=== PATIENT | male | born 1955 | race Caucasian/White ===

== ENCOUNTER → 2016-05-15 | Day surgery (SDC) | payer OTHER ==
[2016-05-14 08:37] VITALS: BMI 21.0
[~2016-05-15] VITALS: Ht 142.2 cm; Wt 42.7 kg
[~2016-05-15] MED LIST: ABL/5 PO; ACET650T97 PO; ALUMSUS2 PO; ASPCH81X PO; ATV/1 PO; BENZ-88 PO; BENZ2TAB6 PO; DOCU100C31 PO; ENTE0.5T PO; IMD/2 PO; LAMO200T PO; LCTL45 PO; LEVO750T23 PO; LEVO75TA PO; LEVO75TA5 PO; LIDOCAINE HCL 2% 2 ML VIAL (20MG/ML) ONE; LORA0.5T12 PO; LPR25 PO; MAGNSUS5 PO; METO25TA56 PO; MOML PO; MULTTAB58 PO; NUTR-7 PO; PANT1TAB3 PO; POLY335019 PO; POLY335040 PO; PROPOFOL IV EMULSION 10 MG/ML 20 ML VIAL IV ONE; PSEU30TA20 PO; SENN-51 PO; SENN-91 PO; TRAZ-119 PO; TRIH2TAB2 PO; [UNRECOGNIZED DRUG - CODE] MT
[2016-05-15 08:39] VITALS: Ht 142.2 cm; Wt 42.7 kg
[2016-05-15 08:45] VITALS: TEMP 36
--- NOTE | 2016-05-15 09:28 | Endo History and Physical ---
History & Physical Date of Service: May 15, 2016. Chief Complaint: chronic cough after eating, reflux Referring Physician: Dr. Nicole History of Present Illness cough after eating Past Surgical History Hx Cardiac Surgery: No Hx Internal Defibrillator: No Hx Pacemaker: No Hx Abdominal Surgery: Yes (?SX (2 NOTEABLE SCARS ON LOWER ABDOMEN)) Hx of Implantable Prosthesis: No Hx Cancer Surgery: No Hx Thoracic Surgery: No Hx Orthopedic: No Hx Urinary Tract Surgery: No Family History None Social History Smoking Status: Never Smoker Hx Substance Use: No Hx Alcohol Use: No Allergies Coded Allergies: Ethanol (Verified Allergy, Mild, 05/14/16) Haloperidol (Verified Allergy, Mild, 05/14/16) Loxapine (Verified Allergy, Mild, 05/14/16) Thioridazine (Verified Allergy, Mild, 05/14/16) Clonazepam (Unverified Allergy, Unknown, UNKNOWN, 05/14/16) Sulfamethoxazole w/Trimethoprim (Unverified Allergy, Unknown, UNKNOWN, 05/14) Zonisamide (Unverified Allergy, Unknown, UNKNOWN, 05/14/16) Diazepam (Verified Adverse Reaction, Mild, 05/14/16) Imipramine (Verified Adverse Reaction, Mild, 05/14/16) Risperidone (Verified Adverse Reaction, Mild, 05/14/16) Current Medications Reported Home Medications Medications Dose Route/Sig Max Daily Dose Days Date Category Dose Instructions Benztropine Mesylate 2 Mg Tab 1 Tab PO TID 30 05/15/16 Reported Sudafed (Pseudoephedrine HCl) 30 Mg Tab 30 Mg PO Q4 PRN 10/05/15 Reported Milk Of Magnesia (Magnesium Hydroxide) 30 Ml Susp 30 Ml PO EVERY 3RD DAY PRN 10/05/15 Reported Imodium (Loperamide HCl) 2 Mg Cap 4 Mg PO ONSET OF LOOSE STOOL 10/05/15 Reported Maalox Max Susp (Al Hydrox/Mg Hydrox/Simethicone) Susp 30 Ml PO QID PRN 10/05/15 Reported Protonix (Pantoprazole) 40 Mg Tab 40 Mg PO BID 11/26/14 Reported Artane (Trihexyphenidyl Hcl) 2 Mg Tab 2 Mg PO BID 03/09/14 Reported Multivitamin (Multiple Vitamin) 1 Tab Tab 1 Tablet PO DAILY 09/16/12 Reported Desyrel (Trazodone Hcl) 50 Mg Tab 50 Mg PO HS 09/16/12 Reported Lorazepam 0.5 Mg Tab 0.5 Mg PO BID 09/16/12 Reported TAKE THIS MEDICATION AT 1200 AND 1600 HOURS. Lamictal (Lamotrigine) 200 Mg Tab 200 Mg PO BID 09/16/12 Reported Qc Senna (Sennosides) 8.6 Mg Tab 8.6 Mg PO BID 09/16/12 Reported Aspirin Chewable (Aspirin) 81 Mg Chew 81 Mg PO DAILY 09/16/12 Reported Miralax Powder Packet (Polyethylene) 17 Gm Pack 17 Gm PO DAILY PRN 11/15/11 Reported DISSOLVE ONE HEAPING TABLESPOONFUL IN 8 OUNCES OF WATER OR JUICE ONCE DAILY NEEDED FOR SEVERE CONSTIPATION. Vital Signs Weight (Kilograms): 42.73 Height (Feet): 4 Height (Inches): 8 Date Time Temp Pulse Resp B/P Pulse Ox O2 Delivery O2 Flow Rate FiO2 05/15/16 08:45 36 90 20 153/89 99 Room Air Physical Exam General Appearance: no apparent distress Respiratory/Chest: Auscultation: breath sounds normal Cardiovascular: Heart Auscultation: RRR Abdomen: Inspection & Palpation: soft Assessment and Plan Cough after eating - EGD
--- NOTE | 2016-05-15 10:08 | Discharge Instructions ---
Endoscopy Patient Instructions Date / Procedure(s) Performed May 15, 2016. EGD Allergy Information Coded Allergies: Ethanol (Verified Allergy, Mild, 05/14/16) Haloperidol (Verified Allergy, Mild, 05/14/16) Loxapine (Verified Allergy, Mild, 05/14/16) Thioridazine (Verified Allergy, Mild, 05/14/16) Clonazepam (Unverified Allergy, Unknown, UNKNOWN, 05/14/16) Sulfamethoxazole w/Trimethoprim (Unverified Allergy, Unknown, UNKNOWN, 05/14) Zonisamide (Unverified Allergy, Unknown, UNKNOWN, 05/14/16) Diazepam (Verified Adverse Reaction, Mild, 05/14/16) Imipramine (Verified Adverse Reaction, Mild, 05/14/16) Risperidone (Verified Adverse Reaction, Mild, 05/14/16) Discharge Date / Findings May 15, 2016. Normal exam Provider Instructions Activity Restrictions - No exercising or heavy lifting for 24 hours. - Do not drink alcohol the day of the procedure. - Do not drive a car or operate machinery until the day after the procedure. - Do not make any important decisions or sign important papers in 24 hours after the procedure. Following Day: - Return to full activity which may include returning to work/school. Diet Start your diet with liquids and light foods (jello, soup, juice, toast). Then eat your usual diet if not nauseated. Treatment For Common After Affects For mild abdominal pain, bloating, or excessive gas: - Rest - Eat lightly - Lie on right side Follow-Up Information Follow-up with Dr. Nicole as scheduled Anesthesia Information What You Should Know You have had a procedure that required some medicine to reduce anxiety and discomfort. This treatment is called moderate sedation. After receiving the treatment, you may be sleepy, but you will be able to breathe on your own. The effects of the treatment may last for several hours. Follow these instructions along with Activity/Diet recommendations noted above: * Do NOT do anything where dizziness or clumsiness would be dangerous. * Rest quietly at home today, then you can be up and about tomorrow. * Have a responsible person stay with you the rest of today. * You may have had an I.V. today. If so, you may take the dressing off later today. Recommendations Call your doctor if: * Trouble breathing * Continuous vomiting for more than 24 hours * Temperature above 101 degrees * Severe abdominal pain or bloating * Pain not relieved by pain medicine ordered * There is increased drainage or redness from any incision * A large amount of rectal bleeding greater than 2-3 tablespoons. (If you had a polyp/s removed or have hemorrhoids, a small amount of blood - from the rectum is to be expected.) * You have any unanswered questions or concerns. IN THE EVENT OF A SERIOUS EMERGENCY, GO TO THE NEAREST EMERGENCY ROOM Your discharge instructions were prepared by provider Melania Bazan. Patient Instructions Signature Page Sadi Moon Patient (or Guardian) Signature/Date: I have read and understand the instructions given to me by my caregivers. Caregiver/RN/Doctor Signature/Date: The above-named patient and/or guardian has received patient instructions on this date. + Original Patient Signature Page (only) stays with chart. Please make copy for patient.
--- NOTE | 2016-05-15 10:08 | GI REPORT ---
Procedure Date: 05/15/2016 9:17 AM Procedure: Upper GI endoscopy Indications: Heartburn, Follow-up of esophageal reflux Medicines: See the Anesthesia note for documentation of the administered medications Complications: No immediate complications. Estimated Blood Loss: Estimated blood loss: none. Procedure: Pre-Anesthesia Assessment: - ASA Grade Assessment: II - A patient with mild systemic disease. After obtaining informed consent, the endoscope was passed under direct vision. Throughout the procedure, the patient's blood pressure, pulse, and oxygen saturations were monitored continuously. The scope was introduced through the mouth, and advanced to the second part of duodenum. The upper GI endoscopy was accomplished without difficulty. The patient tolerated the procedure well. Findings: The examined esophagus was normal. The stomach was normal. The examined duodenum was normal. Impression: - Normal esophagus. - Normal stomach. - Normal examined duodenum. - No specimens collected. Recommendation: - Discharge patient to home. Pérez Moore MD 05/15/2016 10:06:45 AM This report has been signed electronically. Note Initiated On: 05/15/2016 9:17 AM
[2016-05-15 10:25] VITALS: BP 127/72; PULSE 90; O2SAT 96
--- NOTE | 2016-05-15 10:40 | Anesthesiology Progress Note ---
Anesthesia Post Op Note Date & Time May 15, 2016 at 10:39 Vital Signs Pain Intensity: 0 Vital Signs Past 12 Hours Date Time Temp Pulse Resp B/P Pulse Ox O2 Delivery O2 Flow Rate FiO2 05/15/16 10:25 90 20 127/72 96 Room Air 05/15/16 10:11 85 20 119/67 95 Room Air 05/15/16 09:56 74 20 120/61 99 Room Air 05/15/16 08:45 36 90 20 153/89 99 Room Air Notes Mental Status: alert / awake / arousable Nausea / Vomiting: adequately controlled Pain: adequately controlled Airway Patency, RR, SpO2: stable & adequate BP & HR: stable & adequate Hydration State: stable & adequate Anesthetic Complications: no major complications apparent
== END | disposition home or self-care (01) ==
LOC: C.GI 08:18
PROVIDERS: ATTEND Internal Medicine Gastroenterology
DX: K21.9 Gastro-esophageal reflux disease without esophagitis (principal); R05 Cough; Z88.2 Allergy status to sulfonamides; Z88.8 Allergy status to other drugs, medicaments and biological substances

== ENCOUNTER 2016-08-19 15:00 | Inpatient (IN) | payer OTHER ==
[~2016-08-19] VITALS: Ht 144.8 cm; Wt 43.2 kg
[~2016-08-19 15:00] MED LIST changes: -ABL/5 PO; -ACET650T97 PO; -ATV/1 PO; -BENZ-88 PO; -DOCU100C31 PO; -ENTE0.5T PO; -LCTL45 PO; -LEVO750T23 PO; -LEVO75TA PO; -LEVO75TA5 PO; -LIDOCAINE HCL 2% 2 ML VIAL (20MG/ML) ONE; -LPR25 PO; -METO25TA56 PO; -MOML PO; -NUTR-7 PO; -PANT1TAB3 PO; +PANT1TAB48 PO; -POLY335019 PO; -PROPOFOL IV EMULSION 10 MG/ML 20 ML VIAL IV ONE; -SENN-91 PO; -[UNRECOGNIZED DRUG - CODE] MT
[2016-08-19] MEDS ORDERED: ABL/5 PO (15:29)
[2016-08-19] MEDS ORDERED: LEVO75TA5 PO (15:29)
[2016-08-19] MEDS ORDERED: [UNRECOGNIZED DRUG - CODE] MT (15:29)
[2016-08-19] MEDS ORDERED: POLY335019 PO (15:29)
[2016-08-19] MEDS ORDERED: ENTE0.5T PO (15:29)
[2016-08-19] MEDS ORDERED: ACET650T97 PO (15:29)
[2016-08-19] MEDS ORDERED: NUTR-7 PO (15:29)
[2016-08-19] MEDS ORDERED: ATV/1 PO (15:29)
[2016-08-19] MEDS ORDERED: MOML PO (15:29)
[2016-08-19] MEDS ORDERED: DOCU100C31 PO (15:29)
[2016-08-19] MEDS ORDERED: SODIUM CHLORIDE 0.9% 500ML 500 ML IV STA ×2 (15:32→17:26)
[2016-08-19] MEDS ORDERED: SODIUM CHLORIDE 0.9% 1000ML 1,000 ML IV STA (15:32)
[2016-08-19] MEDS ORDERED: ACETAMINOPHEN IV 650 MG in EMPTY BAG 0 ML IV ONE (15:45)
--- NOTE | 2016-08-19 16:22 | DIAGNOSTIC IMAGING REPORT ---
CHEST ONE VIEW PORTABLE HISTORY: fever COMPARISON: Chest 10/05/2015. FINDINGS: The lungs are clear. Cardiac silhouette is normal in size. No pleural effusions. No pneumothorax. IMPRESSION: No acute process. Electronically signed by: Jaya Hines M.D. 08/19/2016 4:20 PM Dictated Date/Time: 08/19/2016 4:19 PM
[2016-08-19 16:33] LABS: BASO % 0.2 %; BASO ABS # 0.02 K/uL (0-0.2); COMPLETE YES; EOS % 1.2 %; HEMATOCRIT 39.7 % (42-52); IG% 0.4 %; LYMPH % 1.7 %; LYMPH ABS # 0.22 K/uL (1.2-3.4); MEAN CORPUSCULAR HEMOGLOBIN 30.4 pg (25-34); MEAN CORPUSCULAR HGB CONC 33.8 g/dl (32-36); MEAN PLATELET VOLUME 9.5 fL (7.4-10.4); MONO % 4.8 %; NEUT % 91.7 %; PLATELET COUNT 164 K/uL (130-400); PLT ESTIMATE NORMAL; RED BLOOD COUNT 4.41 M/uL (4.7-6.1)
[2016-08-19] MEDS ORDERED: PIPERACILLIN/TAZOBACTAM 4.5 GM/100ML D5W IV STA (16:41)
[2016-08-19] MEDS ORDERED: DAPTOmycin IV 250 MG in SODIUM CHLORIDE 0.9% 50ML 50 ML IV ONE (16:45)
[2016-08-19 16:48] LABS: URINE APPEARANCE TURBID (CLEAR); URINE BILIRUBIN NEG (NEG); URINE COLOR DK YELLOW; URINE NITRITE POS (NEG); URINE PH >= 9.0 (4.5-7.5); URINE SPECIFIC GRAVITY 1.025 (1.000-1.030); UROBILINOGEN NEG (NEG); ZZURINE CULT IF INDIC CATH YES
[2016-08-19 16:49] LABS: MANUAL MICROSCOPIC REQUIRED? NO; REVIEW REQ? YES
[2016-08-19 16:56] LABS: SULFASALICYLIC ACID POS (NEG)
[2016-08-19 16:59] LABS: URINE MUCUS PRESENT (NONE PRSENT)
[2016-08-19 17:01] LABS: ALB/GLOB RATIO 0.8 (0.9-2); ALKALINE PHOSPHATASE 84 U/L (45-117); ALT/SGPT 36 U/L (12-78); AST/SGOT 22 U/L (15-37); BLOOD UREA NITROGEN 23 mg/dl (7-18); BUN/CREATININE RATIO 17.4 (10-20); CALCIUM 8.2 mg/dl (8.5-10.1); CARBON DIOXIDE 25 mmol/L (21-32); CHLORIDE 104 mmol/L (98-107); GLUCOSE 148 mg/dl (70-99); MAGNESIUM 2.4 mg/dl (1.8-2.4); POTASSIUM 4.2 mmol/L (3.5-5.1); SODIUM 138 mmol/L (136-145)
--- NOTE | 2016-08-19 17:07 | DIAGNOSTIC IMAGING REPORT ---
HEAD CT NONCONTRAST CT DOSE: 687.98 mGy.cm HISTORY: difficulty w/ ambulation TECHNIQUE: Multiaxial CT images of the head were performed without the use of intravenous contrast. Automated exposure control was utilized for this study. Comparison: Head CT 03/09/2014. Findings: The paranasal sinuses and mastoid air cells are clear. The calvarium and skull base are intact. There is no mass, hematoma, midline shift, acute infarct. White matter hypodensity is nonspecific but suggestive of microvascular ischemic change. The ventricles and sulci demonstrate mild age-related involutional changes. Impression: No significant change compared to the prior study. No acute intracranial abnormality. Electronically signed by: Jaya Hines M.D. 08/19/2016 5:05 PM Dictated Date/Time: 08/19/2016 5:01 PM
--- NOTE | 2016-08-19 18:31 | EMERGENCY ROOM VISIT NOTE ---
History First contact with patient: 15:21 Chief Complaint: OTHER COMPLAINT Stated Complaint: ALTERED MENTAL STATUS History of Present Illness The patient is a 60 year old male who presents to the Emergency Department by private vehicle with his auto body customizer for evaluation of his altered mental status and fever. Yesterday morning, the patient needed to be fed which is abnormal. They report that he was acting somewhat "slow". He was fine for the remainder the day. Today, he had to be fed breakfast and lunch. He has been sleeping os the day. He has not been doing well ambulating recently. At 1:30 PM when the new staff member came on, she noted that he felt warm. He was brought to the emergency Department for further evaluation and management. The patient has had a history of altered mental status with able to her dysfunction. He is also a history of urinary tract infections. The patient has a history of MR and does not indicate other than yes or no answers. When asked if he has pain, he reports no. He is asked if he was hungry or thirsty, he reports yes. He denies any discomfort otherwise. Staff reports that the patient does soil himself and his urine has been very foul-smelling. Review of Systems Review of systems limited secondary to the patient's mental state. Past Medical/Surgical History Medical Problems: (1) Dysphagia (2) Hepatitis (3) Hypothyroidism (4) Mental retardation (5) Pneumonia Family History Patient reports no known family medical history. Social History Smoking Status: Never Smoker Alcohol Use: none Drug Use: none Marital Status: single Housing Status: assisted living Occupation Status: disabled Current/Historical Medications Scheduled Aripiprazole (Abilify), 5 MG PO DAILY Aspirin (Aspirin Chewable), 81 MG PO DAILY Benztropine Mesylate (Benztropine Mesylate), 1 TAB PO TID Docusate Sodium (Docusate Sodium), 100 MG PO BID Entecavir (Baraclude), 0.5 MG PO DAILY Lamotrigine (Lamictal), 200 MG PO BID Loperamide Hcl (Imodium), 4 MG PO ONSET OF LOOSE STOOL Lorazepam (Ativan), 1 MG PO BID Multiple Vitamin (Multivitamin), 1 TABLET PO DAILY Nutritional Supplements (Boost), 1 CAN PO DAILY Pantoprazole (Protonix), 40 MG PO BID Polyethylene Glycol 3350 (Miralax), 17 GM PO DAILY Sodium Fluoride (Dental) (Prevident Rinse), 1 DOSE MT UD Trazodone Hcl (Desyrel), 50 MG PO HS Scheduled PRN Acetaminophen (Tylenol 8 Hour Arthritis), 650 MG PO Q6H PRN for Fever or Headache Aluminum/Magnesium/Simeth (Maalox Max Susp), 30 ML PO QID PRN for PRN Magnesium Hydroxide (Milk Of Magnesia), 30 ML PO QID PRN for UPSET STOMACH Pseudoephedrine (Sudafed), 30 MG PO Q4 PRN for CONGESTION Allergies Coded Allergies: Ethanol (Verified Allergy, Mild, 05/14/16) Haloperidol (Verified Allergy, Mild, 05/14/16) Loxapine (Verified Allergy, Mild, 05/14/16) Thioridazine (Verified Allergy, Mild, 05/14/16) Clonazepam (Unverified Allergy, Unknown, UNKNOWN, 05/14/16) Sulfamethoxazole w/Trimethoprim (Unverified Allergy, Unknown, UNKNOWN, 05/14) Zonisamide (Unverified Allergy, Unknown, UNKNOWN, 05/14/16) Diazepam (Verified Adverse Reaction, Mild, 05/14/16) Imipramine (Verified Adverse Reaction, Mild, 05/14/16) Risperidone (Verified Adverse Reaction, Mild, 05/14/16) Physical Exam Vital Signs Date Time Temp Pulse Resp B/P Pulse Ox O2 Delivery O2 Flow Rate FiO2 08/19/16 18:10 84 18 96/61 96 Nasal Cannula 3.0 08/19/16 16:59 88 18 101/54 96 Nasal Cannula 4.0 08/19/16 16:20 88 Room Air 08/19/16 15:18 78 08/19/16 15:10 38.3 87 18 110/57 96 Room Air Pain Rating (0-10): 0 Physical Exam VITAL SIGNS - Vital signs and nursing notes were reviewed. GENERAL - 60-year-old male appearing older than his stated age who is in no acute distress. Nonverbal but answers simple "yes" or "no" questions. SKIN - Without rashes. HEAD - NC/AT. EYES - PERRL with EOMI bilaterally. Sclera anicteric. Palpebral conjunctiva pink and moist with no injection noted. EARS - No deformities of external structures noted on gross examination bilaterally. No pain elicited with palpation of the tragus bilaterally. External auditory canals without discharge or otorrhea. Tympanic membranes pearly tyson without retraction or bulging. No fluid or purulent material visualized behind the TM. Handle of malleus, umbo, cone of light, pars tensa/ flaccid all easily visualized. NOSE - Midline and without cyanosis. No epistaxis or purulent drainage noted. Septum midline without deviation or septal hematoma noted. MOUTH/OROPHARYNX - Without perioral cyanosis. Buccal mucosa pink and moist and without leukoplakia. Tongue midline with equal elevation of palate bilaterally. No tonsillar hypertrophy, erythema, or exudates noted. NECK - Neck with FROM. Supple to palpation. No lymphadenopathy noted. No nuchal rigidity. LUNGS - Chest wall symmetric without accessory muscle use, intercostals retractions, or central cyanosis. Normal vesicular breath sounds CTA B/L. No wheezes, rales, or rhonchi appreciated. CARDIAC - RRR with S1/S2. No murmur, rubs, or gallops appreciated. ABDOMEN - Abdominal contour flat without pulsations or visible masses. BS normoactive all four quadrants. No tenderness, palpable masses, hepatosplenomegaly, or ascites noted. EXTREMITIES - No clubbing or peripheral cyanosis. No pretibial edema present. NEUROLOGIC - Cranial nerves II through XII grossly intact. Medical Decision & Procedures ER Provider Diagnostic Interpretation: Radiological imaging and reports were reviewed by myself. Radiologist's Interpretation as follows: CHEST ONE VIEW PORTABLE HISTORY: fever COMPARISON: Chest 10/05/2015. FINDINGS: The lungs are clear. Cardiac silhouette is normal in size. No pleural effusions. No pneumothorax. IMPRESSION: No acute process. HEAD CT NONCONTRAST CT DOSE: 687.98 mGy.cm HISTORY: difficulty w/ ambulation TECHNIQUE: Multiaxial CT images of the head were performed without the use of intravenous contrast. Automated exposure control was utilized for this study. Comparison: Head CT 03/09/2014. Findings: The paranasal sinuses and mastoid air cells are clear. The calvarium and skull base are intact. There is no mass, hematoma, midline shift, acute infarct. White matter hypodensity is nonspecific but suggestive of microvascular ischemic change. The ventricles and sulci demonstrate mild age-related involutional changes. Impression: No significant change compared to the prior study. No acute intracranial abnormality. Laboratory Results 08/19/16 15:50 Red Blood Count 4.41, Mean Corpuscular Volume 90.0, Mean Corpuscular Hemoglobin 30.4, Mean Corpuscular Hemoglobin Concent 33.8, Mean Platelet Volume 9.5, Neutrophils (%) (Auto) 91.7, Lymphocytes (%) (Auto) 1.7, Monocytes (%) (Auto) 4.8, Eosinophils (%) (Auto) 1.2, Basophils (%) (Auto) 0.2, Neutrophils # (Auto) 11.55, Lymphocytes # (Auto) 0.22, Monocytes # (Auto) 0.61, Eosinophils # (Auto) 0.15, Basophils # (Auto) 0.02 08/19/16 15:50 Test 08/19/16 15:50 08/19/16 15:56 08/19/16 16:02 08/19/16 16:21 White Blood Count 12.60 K/uL (4.8-10.8) Red Blood Count 4.41 M/uL (4.7-6.1) Hemoglobin 13.4 g/dL (14.0-18.0) Hematocrit 39.7 % (42-52) Mean Corpuscular Volume 90.0 fL (80-100) Mean Corpuscular Hemoglobin 30.4 pg (25-34) Mean Corpuscular Hemoglobin Concent 33.8 g/dl (32-36) Platelet Count 164 K/uL (130-400) Mean Platelet Volume 9.5 fL (7.4-10.4) Neutrophils (%) (Auto) 91.7 % Lymphocytes (%) (Auto) 1.7 % Monocytes (%) (Auto) 4.8 % Eosinophils (%) (Auto) 1.2 % Basophils (%) (Auto) 0.2 % Neutrophils # (Auto) 11.55 K/uL (1.4-6.5) Lymphocytes # (Auto) 0.22 K/uL (1.2-3.4) Monocytes # (Auto) 0.61 K/uL (0.11-0.59) Eosinophils # (Auto) 0.15 K/uL (0-0.5) Basophils # (Auto) 0.02 K/uL (0-0.2) RDW Standard Deviation 46.8 fL (36.4-46.3) RDW Coefficient of Variation 14.1 % (11.5-14.5) Immature Granulocyte % (Auto) 0.4 % Immature Granulocyte # (Auto) 0.05 K/uL (0.00-0.02) Platelet Estimate NORMAL Red Blood Cell Morphology Unremarkable Anion Gap 9.0 mmol/L (3-11) Estimated GFR () 69.2 Estimated GFR (Non- 59.7 BUN/Creatinine Ratio 17.4 (10-20) Calcium Level 8.2 mg/dl (8.5-10.1) Magnesium Level 2.4 mg/dl (1.8-2.4) Total Bilirubin 0.3 mg/dl (0.2-1) Aspartate Amino Transf (AST/SGOT) 22 U/L (15-37) Alanine Aminotransferase (ALT/SGPT) 36 U/L (12-78) Alkaline Phosphatase 84 U/L (45-117) Total Creatine Kinase 46 U/L (39-308) Creatine Kinase MB < 0.5 ng/ml (0.5-3.6) Creatine Kinase MB Ratio (0-3.0) Total Protein 6.4 gm/dl (6.4-8.2) Albumin 2.9 gm/dl (3.4-5.0) Globulin 3.5 gm/dl (2.5-4.0) Albumin/Globulin Ratio 0.8 (0.9-2) Chemistry Specimen Hemolysis Bedside Lactic Acid Venous 3.10 mmol/L (0.90-1.70) Influenza Type A Antigen Neg for Influ A (NEG) Influenza Type B Antigen Neg for Influ B (NEG) Urine Color DK YELLOW Urine Appearance TURBID (CLEAR) Urine pH >= 9.0 (4.5-7.5) Urine Specific [place] 1.025 (1.000-1.030) Urine Protein 1+ (NEG) Urine Glucose (UA) NEG (NEG) Urine Ketones NEG (NEG) Urine Occult Blood 1+ (NEG) Urine Nitrite POS (NEG) Urine Bilirubin NEG (NEG) Urine Urobilinogen NEG (NEG) Urine Leukocyte Esterase LARGE (NEG) Urine WBC (Auto) >30 /hpf (0-5) Urine RBC (Auto) 0-4 /hpf (0-4) Urine Hyaline Casts (Auto) 5-10 /lpf (0-5) Urine Epithelial Cells (Auto) 10-20 /lpf (0-5) Urine Bacteria (Auto) NEG (NEG) Urine Crystals TRIPLE PHOSPHATE Urine Pathogenic Casts /lpf (0) Urine Mucus PRESENT (NONE PRSENT) Test 08/19/16 16:26 Bedside Troponin I 0.020 ng/ml (0-0.045) Medications Administered Medications (Trade) Dose Ordered Sig/Idris Route Start Time Stop Time Status Last Admin Dose Admin Sodium Chloride 500 ml @ 999 mls/hr Q31M STAT IV 08/19/16 15:32 08/19/16 16:02 DC 08/19/16 15:32 999 MLS/HR Sodium Chloride 1,000 ml @ 125 mls/hr Q8H STAT IV 08/19/16 15:32 08/19/16 21:16 DC 08/19/16 16:10 125 MLS/HR Acetaminophen/ Empty Bag (Ofirmev IV/ Empty Iv Bag 100ml) 65 ml @ 260 mls/hr NOW ONCE IV 08/19/16 15:45 08/19/16 15:59 DC 08/19/16 16:10 260 MLS/HR Piperacillin Sod/ Tazobactam Sod 4.5 gm 4.5 gm NOW STAT IV 08/19/16 16:41 08/19/16 16:43 DC 08/19/16 17:02 4.5 GM Daptomycin 250 mg/ Sodium Chloride 55 ml @ 100 mls/hr NOW ONCE IV 08/19/16 16:45 08/19/16 17:17 DC 08/19/16 17:42 100 MLS/HR Sodium Chloride (Nss 500ml) 500 ml @ 999 mls/hr Q31M STAT IV 08/19/16 17:26 08/19/16 17:56 DC 08/19/16 17:26 999 MLS/HR Procedure Patient was placed on the earring maker and monitored throughout the entire extent of their stay. In addition, the patient's pulse oximetry was monitored throughout the entire stay. Any abnormalities or aberrancies were addressed appropriately. ECG Indication: altered mental status Rate (beats per minute): 85 Rhythm: normal sinus Findings: no acute ischemic change, no ectopy Change: no significant change (from 12/27/2014.) ED Course Patient was seen and evaluated by myself. Previous emergency department visit notes were reviewed. Labs were drawn, saline lock in place. Blood cultures were obtained. Influenza and RSV swabs were obtained. EKG and chest x-ray as well as head CT were obtained. Patient was hydrated with a 500 mL bolus of normal saline followed by 125 mL per hour. He received IV Tylenol. Chest x- ray is unremarkable. EKG demonstrates no acute findings. Laboratory results demonstrate a mild leukocytosis with left shift. Inrvx-po-[id number] lactic acid was found to be elevated at 3.10. At this point, the patient was treated with IV Zosyn and daptomycin per sepsis protocol. He was hydrated with an additional 500 mL normal saline bolus. Troponin was negative. Urinalysis was concerning for UTI. Influenza was negative. CT chest x-rays were unremarkable. Laboratory results and imaging studies were reviewed with auto body customizer. Case was discussed with the [facility]ist who agrees to admit the patient for further evaluation and management of his urosepsis. Patient admitted in stable condition. Medical Decision Given the patient's presentation and staff's concern, I did elect to perform the above-mentioned workup. The patient presents today with fever and altered mental status. The patient has MR which makes evaluation much more difficult. He has no tenderness to palpation throughout his abdomen. He does have a mild leukocytosis. His geflc-ie-xwgy lactic acid was significantly elevated. He was found to have moderate UTI on Urine. Because of this, the patient was aggressively managed with Zosyn and daptomycin pending blood and urine cultures. The patient will be admitted for further evaluation and management and aggressive hydration and hemodynamic monitoring. Patient was admitted to medicine service for further evaluation and management. The patient was admitted in fair condition. In the evaluation and treatment of this patient, the following differential diagnoses were considered: Bladder Cancer, Chlamydial Genitourinary Infection, Cystitis, Herpes Simplex, Interstitial Cystitis, PID, Pyelonephritis, Urethritis , or Vaginitis. Impression Primary Impression: Sepsis due to urinary tract infection Additional Impressions: Altered mental status Fever Critical Care I have personally spent greater than 35 minutes of critical care time in the direct management of this patient. This includes bedside care, interpretation of diagnostic studies, and testing, discussion with consultants, patient, and family members, and other required patient management activities. This 35 minutes is in excess of all separately billable procedures. Departure Information Dispostion Admitted as an inpatient Condition FAIR Referrals Diana Nicole M.D. (PCP) Patient Instructions [facility] Health Problem Qualifiers Additional Impressions: Altered mental status Altered mental status type: unspecified Qualified Codes: R41.82 - Altered mental status, unspecified Fever Fever type: unspecified Qualified Codes: R50.9 - Fever, unspecified
[2016-08-19] MEDS ORDERED: NSS + 20MEQ KCL 1000ML 1,000 ML IV SCH (18:57)
[2016-08-19] MEDS ORDERED: ONDANSETRON INJ 2 MG/ML 2 ML VIAL IV PRN (19:00)
[2016-08-19] MEDS ORDERED: LOPERAMIDE HCL 2 MG CAP PO PRN (19:15)
[2016-08-19] MEDS ORDERED: ACETAMINOPHEN 325 MG TAB PO PRN (19:15)
[2016-08-19] MEDS ORDERED: PSEUDOEPHEDRINE HCL 30 MG TAB PO PRN (19:15)
[2016-08-19] MEDS ORDERED: ALUMINUM/MAGNESIUM/SIMETH (MAALOX MAX) 30 ML UDC PO PRN (19:15)
[2016-08-19] MEDS ORDERED: MAGNESIUM HYDROXIDE SUSP 30 ML UDC PO PRN (19:15)
[2016-08-19 19:50] VITALS: Ht 144.8 cm; Wt 43.2 kg
[2016-08-19 20:20] VITALS: BP 113/63; PULSE 97; TEMP 37.2; O2SAT 96
[2016-08-19] MEDS ORDERED: VANCOMYCIN INJ 1,000 MG in SODIUM CHLORIDE 0.9% 250ML 250 ML IV SCH (21:00)
--- NOTE | 2016-08-19 21:01 | HISTORY & PHYSICAL EXAMINATION ---
DATE OF ADMISSION: 08/19/2016 PRIMARY CARE PROVIDER: Dr. Nicole CHIEF COMPLAINT: Noted to be warm and change in mental status since this morning. HISTORY OF PRESENT COMPLAINT: He is a 60-year-old male with significant medical history of mental retardation, hepatitis B carrier, hypothyroidism, seizure disorder and history of dysphagia. Apparently, lives in a correction and is taken care of by a caregiver. The caregiver noted that he has not been eating or drinking normally since yesterday. He has had more shaking of the limbs and he was needed to be fed, which is unusual. This morning, the shaking and confusion was worse and she noted that the patient felt very warm. From that point, he was brought to the Emergency Room for further evaluation. No history of nausea, vomiting, abdominal distention or any pain. No history of any problem with urine and/or bowel, though he is incontinent. No rash, no ulcers in the extremities and no swelling of the legs. He does not have any weakness involving any side in particular. In the Emergency Room, he was noted to have a temperature of 38.3. His blood pressure went down to 96/61, his pulse about 84, saturation 96 on three liters, his white count was noted to be high at 13,000 with a lactate elevated to more than 3 and Urinary tract infection. From that point, he was admitted to telemetry unit with a possible diagnosis of sepsis secondary to urinary tract infection. PAST MEDICAL HISTORY: Significant for mental retardation, hepatitis B carrier, hypothyroidism, history of seizure disorder and dysphagia. PAST SURGICAL HISTORY: Nothing significant. He has had an EGD in May 2016. FAMILY HISTORY: Nothing obtainable at this time. SOCIAL HISTORY: He lives in a correction. He is mentally challenged. He does not smoke or does not drink. He usually can take care of himself to some extent. He can come out of bed, but he needs assistance in clothing and also cleaning himself as he is incontinent of urine and bowel. REVIEW OF SYSTEMS: As in history of present complaint. ALLERGIES: HE IS ALLERGIC TO ATENOLOL, HALOPERIDOL, LOXAPINE, THIORIDAZINE, CLONAZEPAM, BACTRIM, ZONEGRAN, DIAZEPAM, IMIPRAMINE AND RISPERIDONE. MEDICATIONS: As an outpatient; he has been on Tylenol as directed, Maalox as directed, Abilify 5 mg daily, aspirin 81 mg daily, benztropine 2 mg tablet one p.o. t.i.d., docusate sodium 100 mg b.i.d., Baraclude 0.5 mg daily, Lamictal 200 mg b.i.d., Imodium 2 mg tablet 4 mg as directed, lorazepam 1 mg b.i.d., magnesium hydroxide 30 mL as directed, multivitamin 1 tablet daily, Boost as directed, Protonix 40 mg daily, polyethylene glycol as directed, pseudoephedrine 30 mg as directed and trazodone 50 mg at night. PHYSICAL EXAMINATION: GENERAL: On examination in the Emergency Room, he was not having any acute distress. He is nonverbal. He was having shakiness involving the upper extremities which is usual for him. VITAL SIGNS: Temperature 38.3, pulse was 84, blood pressure 96/61 and saturation 96% on three liters nasal cannula. HEENT: Unremarkable. NECK: Supple. No JVD, no bruits. CHEST: Clear to auscultation bilaterally. HEART: S1, S2 regular. No murmur appreciated. ABDOMEN: Soft, benign, slightly distended, nontender, no organomegaly. RECTAL: Deferred. EXTREMITIES: Negative for any edema. MUSCULOSKELETAL: Did not show any acute arthritis involving any joint. CENTRAL NERVOUS SYSTEM: Alert, awake. He is mentally retarded and nonverbal. LABORATORY DATA: Noted today; white count was 12.60, H\T\H 13.4/39.7 and platelets were 164. Sodium 138, potassium 4.2, chloride 104, carbon dioxide 25, BUN 23, creatinine 1.30 and random glucose 148. Lactic acid was 3.10, calcium 8.2. LFTs unremarkable. CK, CK-MB and troponin unremarkable too. UA examination showed WBC more than 30, nitrite positive, esterase positive, bacteria present is sent for culture. Influenza A and B negative. Chest x-ray; no acute findings. CT of the head is negative for any acute intracranial events. EKG was in sinus rhythm, rate of 85 per minute with poor baseline, but nonspecific ST-T wave changes. IMPRESSION AND PLAN: 1. Sepsis, most likely secondary to urinary tract infection. He made the criteria of sepsis on admission with high white count, low blood pressure, fever and also lactic acid level was 3.0. He received IV fluids and we are going to check his lactic acid in about 6 hours. He will be admitted to the telemetry unit. Blood culture and urine culture were taken. He was started with vancomycin and Zosyn, which will be continued for the time being. 2. Mental retardation. He has been in a correction. He does not have any acute symptoms from that. He sees his psychiatric every two months. 3. Seizure disorder. He has not had any seizure for many many years. He has been on Lamictal, continue with that. 4. Hypothyroidism, continue replacement. 5. Dysphagia, he will need pureed diet and medications should be given with applesauce and/or yogurt. He also takes Boost. 6. Gastrointestinal prophylaxis with Protonix. 7. Deep venous thrombosis prophylaxis with Lovenox. 8. Code status. He will be a full code. In my clinical assessment, the beneficiary meets criteria as per CMS for 2 midnights' admission. HILARY
[2016-08-19] MEDS: SODIUM CHLORIDE 0.9% 1000ML 1,000 ML IV SCH (21:24)
[2016-08-19] MEDS: PIPERACILL/TAZOBAC IV 3.375 GM in DEXTROSE 5% 100ML 100 ML IV SCH (21:28)
[2016-08-19] MEDS: LORAZEPAM 1 MG TAB PO SCH (21:28)
[2016-08-19] MEDS: DOCUSATE SODIUM 100 MG CAP PO SCH (21:29)
[2016-08-19] MEDS: PANTOprazole SOD 40 MG TAB PO SCH (21:29)
[2016-08-19] MEDS: TRAZODONE HCL 50 MG TAB PO SCH (21:29)
[2016-08-19] MEDS: BENZTROPINE MESYLATE 1 MG TAB PO SCH (21:29)
[2016-08-19] MEDS ORDERED: PIPERACILL/TAZOBAC CONSULT ACTIVE PRN (21:30)
[2016-08-19 23:38] VITALS: BP 99/54; PULSE 92; TEMP 36.6; O2SAT 93
[2016-08-20] VITALS (11 sets, daily range): BP systolic 98–136; BP diastolic 53–72; PULSE 88–111; TEMP 36.8–38.3; O2SAT 90–96
[2016-08-20] MEDS: SODIUM CHLORIDE 0.9% 1000ML 1,000 ML IV SCH ×3 (04:04→17:28)
[2016-08-20] MEDS: ACETAMINOPHEN 325 MG TAB PO PRN ×2 (04:05→17:25)
[2016-08-20] MEDS: PIPERACILL/TAZOBAC IV 3.375 GM in DEXTROSE 5% 100ML 100 ML IV SCH ×3 (05:37→22:42)
[2016-08-20 07:10] LABS: HEMATOCRIT 36.1 % (42-52); MEAN CORPUSCULAR HEMOGLOBIN 29.8 pg (25-34); MEAN CORPUSCULAR HGB CONC 33.8 g/dl (32-36); MEAN PLATELET VOLUME 9.3 fL (7.4-10.4); PLATELET COUNT 130 K/uL (130-400); WHITE BLOOD COUNT 5.14 K/uL (4.8-10.8)
[2016-08-20 07:20] LABS: INR 1.3 (0.9-1.1); PROTHROMBIN TIME (PATIENT) 14.5 SECONDS (9.0-12.0)
[2016-08-20 07:42] LABS: BUN/CREATININE RATIO 15.7 (10-20); CALCIUM 7.1 mg/dl (8.5-10.1); CREATININE 1.1 mg/dl (0.60-1.40); MAGNESIUM 2.2 mg/dl (1.8-2.4); POTASSIUM 3.9 mmol/L (3.5-5.1)
[2016-08-20 07:51] LABS: PHOSPHORUS 1.6 mg/dl (2.5-4.9)
[2016-08-20] MEDS: [UNRECOGNIZED DRUG - OTHER] SCH ×4 (08:00→23:04)
[2016-08-20] MEDS: POLYETHYLENE (MIRALAX) 17 GM PACK PO SCH (09:00)
[2016-08-20] MEDS ORDERED: ENOXAPARIN 40 MG/0.4 ML SYR SC SCH (09:00)
[2016-08-20] MEDS: DOCUSATE SODIUM 100 MG CAP PO SCH ×2 (09:13→22:38)
[2016-08-20] MEDS: ARIPIprazole TAB 5 MG TAB PO SCH (09:13)
[2016-08-20] MEDS: BENZTROPINE MESYLATE 1 MG TAB PO SCH ×3 (09:14→22:38)
[2016-08-20] MEDS: MULTIVITAMIN TAB PO SCH (09:15)
[2016-08-20] MEDS: BOOST VANILLA PO SCH ×2 (09:15)
[2016-08-20] MEDS: ASPIRIN 81 MG ECTAB PO SCH (09:15)
[2016-08-20] MEDS: PANTOprazole SOD 40 MG TAB PO SCH ×2 (09:15→23:06)
[2016-08-20] MEDS: LORAZEPAM 1 MG TAB PO SCH ×2 (09:17→22:36)
--- NOTE | 2016-08-20 09:52 | Medical Consult ---
Consultation Date of Consultation: Aug 20, 2016. Attending Physician: Pati Bergman M.D. Reason for Consultation: Daptomycin ordered History of Present Illness 60-year-old male with history of mental retardation, chronic hepatitis B infection on therapy, history of prior urinary tract infections, admitted to the hospital with 1 day history of worsening mental status, not eating or drinking, with fever. Found to have leukocytosis and elevated lactate consistent with sepsis. urinalysis consistent with infection, now growing gram- negative bacilli. Chest x-ray shows no evidence of pneumonia. Patient has been started empirically on daptomycin and Zosyn. Not answering questions appropriately at present, hemodynamically stable. Past Medical/Surgical History Medical Problems: (1) Altered mental status Status: Acute (2) Cough Status: Acute (3) Fever Status: Acute (4) Sepsis due to urinary tract infection Status: Acute (5) Vomiting Status: Acute Medical Problems: (1) Dysphagia (2) Hepatitis (3) Hypothyroidism (4) Mental retardation (5) Pneumonia Family History Patient reports no known family medical history. Social History Smoking Status: Never Smoker Drug Use: none Marital Status: single Housing Status: assisted living Occupation Status: disabled Allergies Coded Allergies: Haloperidol (Verified Allergy, Mild, 05/14/16) Loxapine (Verified Allergy, Mild, 05/14/16) Thioridazine (Verified Allergy, Mild, 05/14/16) Clonazepam (Unverified Allergy, Unknown, UNKNOWN, 05/14/16) Sulfamethoxazole w/Trimethoprim (Unverified Allergy, Unknown, UNKNOWN, 05/14) Zonisamide (Unverified Allergy, Unknown, UNKNOWN, 05/14/16) Diazepam (Verified Adverse Reaction, Mild, 05/14/16) Imipramine (Verified Adverse Reaction, Mild, 05/14/16) Risperidone (Verified Adverse Reaction, Mild, 05/14/16) Current Inpatient Medications Current Inpatient Medications Medications (Trade) Dose Ordered Sig/Idris Route Start Time Stop Time Status Last Admin Dose Admin Enoxaparin Sodium (Lovenox Inj) 40 mg QAM SC 08/20/16 09:00 09/19/16 08:59 08/20/16 09:16 40 MG Acetaminophen (Tylenol Tab) 650 mg Q4H PRN PO 08/19/16 19:00 09/18/16 18:59 08/20/16 04:05 650 MG Ondansetron HCl (Zofran Inj) 4 mg Q6H PRN IV 08/19/16 19:00 09/18/16 18:59 Al Hydrox/Mg Hydrox/Simethicone (Maalox Max Susp) 30 ml QID PRN PO 08/19/16 19:15 09/18/16 19:14 Aripiprazole (Abilify Tab) 5 mg DAILY PO 08/20/16 09:00 09/19/16 08:59 08/20/16 09:13 5 MG Aspirin (Ecotrin Tab) 81 mg DAILY PO 08/20/16 09:00 09/19/16 08:59 08/20/16 09:15 81 MG Docusate Sodium (coLACE CAP) 100 mg BID PO 08/19/16 21:00 09/18/16 20:59 08/20/16 09:13 100 MG Loperamide HCl (Imodium Cap) 4 mg Q8H PRN PO 08/19/16 19:15 09/18/16 19:14 Lorazepam (Ativan Tab) 1 mg BID PO 08/19/16 21:00 09/18/16 20:59 08/20/16 09:17 1 MG Magnesium Hydroxide (Milk Of Magnesia Susp) 30 ml QID PRN PO 08/19/16 19:15 09/18/16 19:14 Multivitamins (Multivitamin Tab) 1 tab DAILY PO 08/20/16 09:00 09/19/16 08:59 08/20/16 09:15 1 TAB Enteral Nutritional Formula (Boost) 1 can DAILY PO 08/20/16 09:00 09/19/16 08:59 08/20/16 09:15 1 CAN Pantoprazole Sodium (Protonix Tab) 40 mg BID PO 08/19/16 21:00 09/18/16 20:59 08/20/16 09:15 40 MG Pseudoephedrine HCl (Sudafed Tab) 30 mg Q4 PRN PO 08/19/16 19:15 09/18/16 19:14 Trazodone HCl (Desyrel Tab) 50 mg HS PO 08/19/16 21:00 09/18/16 20:59 08/19/16 21:29 50 MG Acetaminophen (Tylenol Tab) 650 mg Q6H PRN PO 08/19/16 19:15 09/18/16 19:14 Benztropine Mesylate (Cogentin Tab) 1 mg TID PO 08/19/16 21:00 09/18/16 20:59 08/20/16 09:14 1 MG Miscellaneous Information (Order Awaiting Action) 1 ea QS N/A 08/20/16 00:00 09/19/16 00:00 Lamotrigine (Lamictal Tab) 200 mg BID PO 08/19/16 21:00 09/18/16 20:59 08/20/16 09:13 200 MG Polyethylene 17 gm 17 gm DAILY PO 08/20/16 09:00 09/19/16 08:59 Piperacillin Sod/ Tazobactam Sod 3.375 gm/Dextrose 115 ml @ 28 mls/hr Q8H IV 08/19/16 22:00 08/29/16 21:59 08/20/16 05:37 28 MLS/HR Sodium Chloride 1,000 ml @ 150 mls/hr Q6H40M IV 08/19/16 21:30 09/18/16 21:29 08/20/16 04:04 150 MLS/HR Daptomycin/Sodium Chloride (Cubicin IV/Nss 50ml) 55 ml @ 100 mls/hr DAILY@1800 IV 08/20/16 18:00 08/28/16 18:32 Piperacillin Sod/ Tazobactam Sod (Consult) 1 ea UD PRN N/A 08/19/16 21:30 09/18/16 21:29 Review of Systems Not obtainable because of patient's mental status Physical Exam Date Time Temp Pulse Resp B/P Pulse Ox O2 Delivery O2 Flow Rate FiO2 08/20/16 08:06 36.8 97 20 107/63 91 Nasal Cannula 2.0 08/20/16 05:18 37.2 08/20/16 04:00 Nasal Cannula 2.0 08/20/16 03:49 37.9 95 19 98/66 93 Nasal Cannula 2.0 08/20/16 00:00 Nasal Cannula 2.0 08/19/16 23:38 36.6 92 17 99/54 93 Nasal Cannula 2.0 08/19/16 20:20 37.2 97 20 113/63 96 Nasal Cannula 2.0 08/19/16 19:44 79 18 97/69 97 Nasal Cannula 3.0 08/19/16 19:19 81 08/19/16 18:10 84 18 96/61 96 Nasal Cannula 3.0 08/19/16 16:59 88 18 101/54 96 Nasal Cannula 4.0 08/19/16 16:20 88 Room Air 08/19/16 15:18 78 08/19/16 15:10 38.3 87 18 110/57 96 Room Air General Appearance: WD/WN, no apparent distress Head: normocephalic, atraumatic Eyes: normal inspection, sclerae normal ENT: normal ENT inspection, pharynx normal Neck: supple, no adenopathy, thyroid normal, trachea midline Respiratory/Chest: chest non-tender, lungs clear, normal breath sounds, no respiratory distress Cardiovascular: regular rate, rhythm, no gallop, no murmur Abdomen/GI: normal bowel sounds, soft, no organomegaly, + tenderness, + distended Back: normal inspection, no CVA tenderness Extremities/Musculoskelatal: no calf tenderness, non-tender Neurologic/Psych: alert, + disoriented Skin: normal color, warm/dry, no rash Lymphatic: no adenopathy Laboratory Results Date/Time Source Procedure Growth Status 08/19/16 16:05 Blood Blood Culture Pending Received 08/19/16 15:50 Blood Blood Culture Pending Received 08/19/16 16:21 Urine,Catheterized Urine Culture - Preliminary Gram Negative Bacilli Resulted Last 24 Hours Test 08/19/16 15:50 08/19/16 15:56 08/19/16 16:02 08/19/16 16:21 White Blood Count 12.60 K/uL Red Blood Count 4.41 M/uL Hemoglobin 13.4 g/dL Hematocrit 39.7 % Mean Corpuscular Volume 90.0 fL Mean Corpuscular Hemoglobin 30.4 pg Mean Corpuscular Hemoglobin Concent 33.8 g/dl Platelet Count 164 K/uL Mean Platelet Volume 9.5 fL Neutrophils (%) (Auto) 91.7 % Lymphocytes (%) (Auto) 1.7 % Monocytes (%) (Auto) 4.8 % Eosinophils (%) (Auto) 1.2 % Basophils (%) (Auto) 0.2 % Neutrophils # (Auto) 11.55 K/uL Lymphocytes # (Auto) 0.22 K/uL Monocytes # (Auto) 0.61 K/uL Eosinophils # (Auto) 0.15 K/uL Basophils # (Auto) 0.02 K/uL RDW Standard Deviation 46.8 fL RDW Coefficient of Variation 14.1 % Immature Granulocyte % (Auto) 0.4 % Immature Granulocyte # (Auto) 0.05 K/uL Platelet Estimate NORMAL Red Blood Cell Morphology Unremarkable Sodium Level 138 mmol/L Potassium Level 4.2 mmol/L Chloride Level 104 mmol/L Carbon Dioxide Level 25 mmol/L Anion Gap 9.0 mmol/L Blood Urea Nitrogen 23 mg/dl Creatinine 1.30 mg/dl Estimated GFR () 69.2 Estimated GFR (Non- 59.7 BUN/Creatinine Ratio 17.4 Random Glucose 148 mg/dl Calcium Level 8.2 mg/dl Magnesium Level 2.4 mg/dl Total Bilirubin 0.3 mg/dl Aspartate Amino Transf (AST/SGOT) 22 U/L Alanine Aminotransferase (ALT/SGPT) 36 U/L Alkaline Phosphatase 84 U/L Total Creatine Kinase 46 U/L Creatine Kinase MB < 0.5 ng/ml Creatine Kinase MB Ratio Total Protein 6.4 gm/dl Albumin 2.9 gm/dl Globulin 3.5 gm/dl Albumin/Globulin Ratio 0.8 Chemistry Specimen Hemolysis Bedside Lactic Acid Venous 3.10 mmol/L Influenza Type A Antigen Neg for Influ A Influenza Type B Antigen Neg for Influ B Urine Color DK YELLOW Urine Appearance TURBID Urine pH >= 9.0 Urine Specific [place] 1.025 Urine Protein 1+ Urine Glucose (UA) NEG Urine Ketones NEG Urine Occult Blood 1+ Urine Nitrite POS Urine Bilirubin NEG Urine Urobilinogen NEG Urine Leukocyte Esterase LARGE Urine WBC (Auto) >30 /hpf Urine RBC (Auto) 0-4 /hpf Urine Hyaline Casts (Auto) 5-10 /lpf Urine Epithelial Cells (Auto) 10-20 /lpf Urine Bacteria (Auto) NEG Urine Crystals TRIPLE PHOSPHATE Urine Pathogenic Casts /lpf Urine Mucus PRESENT Test 08/19/16 16:26 08/19/16 23:25 08/20/16 06:42 Bedside Troponin I 0.020 ng/ml Lactic Acid Level 1.2 mmol/L White Blood Count 5.14 K/uL Red Blood Count 4.10 M/uL Hemoglobin 12.2 g/dL Hematocrit 36.1 % Mean Corpuscular Volume 88.0 fL Mean Corpuscular Hemoglobin 29.8 pg Mean Corpuscular Hemoglobin Concent 33.8 g/dl RDW Standard Deviation 46.6 fL RDW Coefficient of Variation 14.3 % Platelet Count 130 K/uL Mean Platelet Volume 9.3 fL Prothrombin Time 14.5 SECONDS Prothromb Time International Ratio 1.3 Sodium Level 142 mmol/L Potassium Level 3.9 mmol/L Chloride Level 111 mmol/L Carbon Dioxide Level 24 mmol/L Anion Gap 7.0 mmol/L Blood Urea Nitrogen 17 mg/dl Creatinine 1.10 mg/dl Est Creatinine Clear Calc Drug Dose 44.1 ml/min Estimated GFR () 84.7 Estimated GFR (Non- 73.1 BUN/Creatinine Ratio 15.7 Random Glucose 120 mg/dl Calcium Level 7.1 mg/dl Phosphorus Level 1.6 mg/dl Magnesium Level 2.2 mg/dl Total Bilirubin 0.5 mg/dl Direct Bilirubin 0.2 mg/dl Aspartate Amino Transf (AST/SGOT) 37 U/L Alanine Aminotransferase (ALT/SGPT) 44 U/L Alkaline Phosphatase 87 U/L Total Protein 5.3 gm/dl Albumin 2.2 gm/dl [~ rep ct add3]] CHEST ONE VIEW PORTABLE HISTORY: fever COMPARISON: Chest 10/05/2015. FINDINGS: The lungs are clear. Cardiac silhouette is normal in size. No pleural effusions. No pneumothorax. IMPRESSION: No acute process. Electronically signed by: Jaya Hines M.D. 08/19/2016 4:20 PM Dictated Date/Time: 08/19/2016 4:19 PM Assessment & Plan Sepsis with encephalopathy likely from urinary tract infection with gram negative bacilli. Will continue Zosyn pending final culture results. Daptomycin discontinued. Will follow.
--- NOTE | 2016-08-20 10:44 | Clinical Documentation Query ---
Dr. [facility] : CLINICAL DOCUMENTATION QUERY Patient is a 60 year old male admitted for evaluation and treatment of fever and mental status changes. Was noted to not be eating or drinking in usual amounts and was requiring more assistance with ADL's. Documentation includes "confusion was worse". CT scan of the head completed which demonstrated no acute disease. As appropriate, consider clarification as suggested below as this directly impacts DRG assignment. Thank you. In your clinical opinion is this patient being managed for: ( + ) Metabolic encephalopathy ( ) Other explanation of clinical findings (Please Explain) ( ) Unable to determine (Please Define) ( ) Need to Discuss ( ) Not Agree The medical record reflects the following clinical findings, treatment, and risk factors. Clinical Indicators: Altered mental status in the setting of sepsis due to UTI Treatment: IVF antibiotics, IVF, cultures, labs Risk Factors: Infection. Please clarify and document your clinical opinion in the progress notes and discharge summary. Terms such as "probable", "suspected", "likely", "questionable", "possible", or "still to be ruled out" are acceptable. IF IN AGREEMENT, YOU MUST DOCUMENT ABOVE DIAGNOSTIC STATEMENT IN DAILY PROGRESS NOTES AND DISCHARGE SUMMARY. This document is not part of the patient's record. Thank You, Dionisio Stringer, RN [phone]
--- NOTE | 2016-08-20 16:59 | Progress Note ---
Internal Med Progress Note Date of Service: Aug 20, 2016. Provider Documentation: SUBJECTIVE: The patient was seen and examined NON VERBAL Remains stable and without any distress Generalized shakes on any stimulation OBJECTIVE: Vital Signs-as noted below Exam: General-No distress at rest Eyes-normal ENT-normal Neck-supple Lungs-Decreased breath sound bilaterally without any crackles Heart-Regular Abdomen-Benign,no masses Extremities-No edema Neuro-AA Nonverbal Moving all limbs Lab data as noted below. ASSESSMENT & PLAN: Sepsis with Metabolic Encephalopathy Secondary to urinary tract infection. Gm Negative Bacilli in Urine culture Was on Dapto and Zosyn WCC is normalized Appreciate ID input Mental retardation. He has been in a residential. He does not have any acute symptoms from that. He sees his psychiatric every two months. Seizure disorder. He has not had any seizure for many many years. He has been on Lamictal, continue with that. Hypothyroidism, continue replacement. Dysphagia, he will need pureed diet and medications should be given with applesauce and/or yogurt. He also takes Boost. Gastrointestinal prophylaxis with Protonix. Deep venous thrombosis prophylaxis with Lovenox. Changed to Heparin Code status. He will be a full code. DISPOSITION Likely discharge in a day or two Vital Signs: Date Time Temp Pulse Resp B/P Pulse Ox O2 Delivery O2 Flow Rate FiO2 08/20/16 16:37 38.3 111 22 113/68 96 5.0 08/20/16 14:12 37.3 08/20/16 13:31 37.8 96 114/64 96 Nasal Cannula 3.0 08/20/16 12:11 38.1 96 19 136/53 91 Nasal Cannula 2.0 08/20/16 12:00 95 Nasal Cannula 2.0 08/20/16 08:06 36.8 97 20 107/63 91 Nasal Cannula 2.0 08/20/16 08:00 94 Nasal Cannula 2.0 08/20/16 05:18 37.2 08/20/16 04:00 Nasal Cannula 2.0 08/20/16 03:49 37.9 95 19 98/66 93 Nasal Cannula 2.0 08/20/16 00:00 Nasal Cannula 2.0 08/19/16 23:38 36.6 92 17 99/54 93 Nasal Cannula 2.0 08/19/16 20:20 37.2 97 20 113/63 96 Nasal Cannula 2.0 08/19/16 19:44 79 18 97/69 97 Nasal Cannula 3.0 08/19/16 19:19 81 08/19/16 18:10 84 18 96/61 96 Nasal Cannula 3.0 08/19/16 16:59 88 18 101/54 96 Nasal Cannula 4.0 Lab Results: Results Past 24 Hours Test 08/19/16 23:25 08/20/16 06:42 Range/Units Lactic Acid Level 1.2 0.4-2.0 mmol/L White Blood Count 5.14 4.8-10.8 K/uL Red Blood Count 4.10 4.7-6.1 M/uL Hemoglobin 12.2 14.0-18.0 g/dL Hematocrit 36.1 42-52 % Mean Corpuscular Volume 88.0 80-100 fL Mean Corpuscular Hemoglobin 29.8 25-34 pg Mean Corpuscular Hemoglobin Concent 33.8 32-36 g/dl RDW Standard Deviation 46.6 36.4-46.3 fL RDW Coefficient of Variation 14.3 11.5-14.5 % Platelet Count 130 130-400 K/uL Mean Platelet Volume 9.3 7.4-10.4 fL Prothrombin Time 14.5 9.0-12.0 SECONDS Prothromb Time International Ratio 1.3 0.9-1.1 Sodium Level 142 136-145 mmol/L Potassium Level 3.9 3.5-5.1 mmol/L Chloride Level 111 98-107 mmol/L Carbon Dioxide Level 24 21-32 mmol/L Anion Gap 7.0 3-11 mmol/L Blood Urea Nitrogen 17 7-18 mg/dl Creatinine 1.10 0.60-1.40 mg/dl Est Creatinine Clear Calc Drug Dose 44.1 ml/min Estimated GFR () 84.7 Estimated GFR (Non- 73.1 BUN/Creatinine Ratio 15.7 10-20 Random Glucose 120 70-99 mg/dl Calcium Level 7.1 8.5-10.1 mg/dl Phosphorus Level 1.6 2.5-4.9 mg/dl Magnesium Level 2.2 1.8-2.4 mg/dl Total Bilirubin 0.5 0.2-1 mg/dl Direct Bilirubin 0.2 0-0.2 mg/dl Aspartate Amino Transf (AST/SGOT) 37 15-37 U/L Alanine Aminotransferase (ALT/SGPT) 44 12-78 U/L Alkaline Phosphatase 87 45-117 U/L Total Protein 5.3 6.4-8.2 gm/dl Albumin 2.2 3.4-5.0 gm/dl
[2016-08-20] MEDS ORDERED: DAPTOmycin IV 250 MG in SODIUM CHLORIDE 0.9% 50ML 50 ML IV SCH (18:00)
[2016-08-20] MEDS ORDERED: FUROSEMIDE 40 MG/4 ML VIAL ONE (18:18)
--- NOTE | 2016-08-20 18:23 | Progress Note ---
Progress Note Date of Service Aug 20, 2016. Progress Note Attended Code Purple; Has had a fall early this afternoon Has had SOB with low saturation which improved Acute SOB at around 6 PM Was cyanotic but breathing heavily Code lico was called Tachycardia with increased BP Saturation >90 on 100% NRB Chest-coarse crackles bilaterally A&P Acute Pulmonary Edema Lasix 40MG Iv stat Stat CXR,CBC,PRP,Mg,Phos,EKG and Rodriguez cath May need to move to tele Dr Ke Bergman
[2016-08-20 18:26] LABS: MEAN CELL VOLUME 90.7 fL (80-100); MEAN CORPUSCULAR HEMOGLOBIN 29.6 pg (25-34); MEAN CORPUSCULAR HGB CONC 32.6 g/dl (32-36); MEAN PLATELET VOLUME 9.5 fL (7.4-10.4); PLATELET COUNT 164 K/uL (130-400); RED BLOOD COUNT 4.63 M/uL (4.7-6.1); WHITE BLOOD COUNT 7.71 K/uL (4.8-10.8)
[2016-08-20] MEDS ORDERED: FUROSEMIDE INJ 40 MG in SYRINGE 0 ML IV SCH (18:30)
[2016-08-20 18:47] LABS: BUN/CREATININE RATIO 11.6 (10-20); CALCIUM 7.5 mg/dl (8.5-10.1); CREATININE 1.5 mg/dl (0.60-1.40); MAGNESIUM 2.6 mg/dl (1.8-2.4); PHOSPHORUS 2.3 mg/dl (2.5-4.9); POTASSIUM 3.8 mmol/L (3.5-5.1)
[2016-08-20 19:29] LABS: ARTERIAL BLOOD GAS BASE EXCESS -7.1 mEq/L (-9-1.8); ARTERIAL BLOOD GAS HCO3 17 mmol/L (19-24); ARTERIAL BLOOD GAS PO2 60 mm/Hg (80-95); ARTERIAL BLOOD GAS pH 7.37 (7.35-7.45)
[2016-08-20 19:30] LABS: ALLEN TEST POS (POS); O2 ADMINISTRATION 15 L
--- NOTE | 2016-08-20 21:28 | Procedure Note ---
Procedure Note Date of Service Aug 20, 2016. Procedure Note Critical Care Medicine Point of Care Bedside Ultrasound Procedure: Limited DVT on compression test Procedure Date: 08/20/2016 Indication: Code purple, called the floor for hypoxia and syncope Attending: Demario Reyna DO Resident/Physician Box Loader: Addie Organs Examined: Bilateral common, superficial femoral veins, bilateral popliteal vein Objects visualized: Applicable Impression: Two point Limited compression test was negative for acute DVT bilaterally Critical Care Medicine Point of Care Bedside Ultrasound Procedure: Limited Bedside Lung Ultrasound Procedure Date: 08/20/2016 Indication: Hypoxia and syncope, code purple Attending: Demario Reyna DO Resident/Physician Box Loader: Addie Procedure: Lung Ultrasound Indication: Acute hypoxia Organs Examined: Lung BLUE point (upper), BLUE point (lower), Phrenic Point (axillary), PLAPS point ( posterior) A lines visualized: Absent, Hemithorax: bilateral B lines visualized: Present, Hemithorax: Bilateral full chest Lung Sliding: Resident, Hemithorax: bilateral Tissue-like Sign: Not present, Hemithorax: Bilateral Shred Sign: Not present, Hemithorax: bilateral Quad Sign: Not present, Hemithorax: bilateral Impression: Acute pulmonary edema bilaterally Plan: Lasix IV ordered. The care was transitioned to Dr. Bergman upon his arrival to the patient's bedside. Please see patient record for further details
--- NOTE | 2016-08-20 21:39 | DIAGNOSTIC IMAGING REPORT ---
CHEST ONE VIEW PORTABLE CLINICAL HISTORY: typing teacher dyspnea COMPARISON STUDY: 08/19/2016 FINDINGS: Mild cardia megaly. Components of pulmonary edema versus congestive failure. Diaphragms smooth. IMPRESSION: Congestive heart failure/pulmonary edema. Electronically signed by: Robby Peck M.D. 08/20/2016 9:37 PM Dictated Date/Time: 08/20/2016 9:36 PM
[2016-08-20 22:15] LABS: URINE APPEARANCE CLEAR (CLEAR); URINE BILIRUBIN NEG (NEG); URINE COLOR YELLOW; URINE NITRITE NEG (NEG); URINE PH 5.5 (4.5-7.5); URINE SPECIFIC GRAVITY 1.009 (1.000-1.030); UROBILINOGEN NEG (NEG); ZZURINE CULT IF INDIC CATH NO
[2016-08-20 22:16] LABS: REVIEW REQ? NO
[2016-08-20 22:17] LABS: MANUAL MICROSCOPIC REQUIRED? NO
[2016-08-20] MEDS: TRAZODONE HCL 50 MG TAB PO SCH (22:37)
[2016-08-21] VITALS (18 sets, daily range): BP systolic 95–172; BP diastolic 55–95; PULSE 88–135; TEMP 36.5–38.2; O2SAT 90–99
[2016-08-21] MEDS: HEPARIN SOD 5000 UNIT/0.5 ML CARP SQ SCH ×3 (05:45→21:21)
[2016-08-21] MEDS: PIPERACILL/TAZOBAC IV 3.375 GM in DEXTROSE 5% 100ML 100 ML IV SCH ×3 (05:46→21:30)
[2016-08-21 07:39] LABS: HEMATOCRIT 39.9 % (42-52); MEAN CELL VOLUME 86.2 fL (80-100); MEAN CORPUSCULAR HEMOGLOBIN 29.2 pg (25-34); MEAN CORPUSCULAR HGB CONC 33.8 g/dl (32-36); PLATELET COUNT 128 K/uL (130-400); RED BLOOD COUNT 4.63 M/uL (4.7-6.1); WHITE BLOOD COUNT 6.01 K/uL (4.8-10.8)
[2016-08-21] MEDS: LORAZEPAM 1 MG TAB PO SCH ×2 (07:50→21:19)
[2016-08-21] MEDS: [UNRECOGNIZED DRUG - OTHER] SCH ×3 (08:00→23:42)
[2016-08-21 08:05] LABS: BUN/CREATININE RATIO 13.3 (10-20); CALCIUM 7.6 mg/dl (8.5-10.1); CREATININE 1.4 mg/dl (0.60-1.40); MAGNESIUM 2.5 mg/dl (1.8-2.4); POTASSIUM 3.2 mmol/L (3.5-5.1)
[2016-08-21] MEDS: ACETAMINOPHEN 325 MG TAB PO PRN ×3 (08:09→21:20)
[2016-08-21] MEDS: BOOST VANILLA PO SCH ×2 (08:10)
[2016-08-21] MEDS: DOCUSATE SODIUM 100 MG CAP PO SCH ×2 (08:11→21:16)
[2016-08-21] MEDS: ASPIRIN 81 MG ECTAB PO SCH (08:11)
[2016-08-21] MEDS: POLYETHYLENE (MIRALAX) 17 GM PACK PO SCH (08:12)
[2016-08-21] MEDS: ARIPIprazole TAB 5 MG TAB PO SCH (08:12)
[2016-08-21] MEDS: BENZTROPINE MESYLATE 1 MG TAB PO SCH ×3 (08:12→21:14)
[2016-08-21] MEDS: MULTIVITAMIN TAB PO SCH (08:13)
[2016-08-21] MEDS: PANTOprazole SOD 40 MG TAB PO SCH ×2 (08:13→21:15)
--- NOTE | 2016-08-21 08:17 | DIAGNOSTIC IMAGING REPORT ---
SINGLE VIEW CHEST CLINICAL HISTORY: Dyspnea. CHF. FINDINGS: An AP, portable, upright chest radiograph is compared to study dated 08/20/2016. The examination is degraded by portable technique and patient rotation. The heart is top normal for projection. Pulmonary vascular congestion persists. There are bilateral airspace opacities with a perihilar distribution. Trace pleural effusions are suspected. No pneumothorax is seen. The skeletal structures appear osteopenic. The bony thorax is grossly intact. IMPRESSION: 1. Pulmonary vascular congestion persists. 2. There are bilateral airspace opacities with a perihilar distribution. This represent pulmonary edema versus an infectious/inflammatory pneumonitis. Clinical correlation will be required. 3. Trace pleural effusions Electronically signed by: Marty Ram M.D. 08/21/2016 8:15 AM Dictated Date/Time: 08/21/2016 8:13 AM
[2016-08-21 08:51] LABS: PHOSPHORUS 1.2 mg/dl (2.5-4.9)
[2016-08-21] MEDS ORDERED: POTASSIUM PHOS 3 MMOL/1 ML INFUSION IV STA (09:06)
[2016-08-21] MEDS ORDERED: POTASSIUM CHLORIDE 10 MEQ TABCR PO STA (09:06)
[2016-08-21] MEDS ORDERED: POTASSIUM PHOSPHATE INJ 30 MMOL in SODIUM CHLORIDE 0.9% 500ML 500 ML IV SCH (09:30)
[2016-08-21] MEDS ORDERED: VANCOMYCIN INJ 1,100 MG in SODIUM CHLORIDE 0.9% 250ML 250 ML IV ONE (10:00)
[2016-08-21] MEDS ORDERED: MoRPHine SULFATE 2 MG/ML CARP ONE (11:13)
[2016-08-21] MEDS ORDERED: MoRPHine SULFATE 2 MG/ML CARP IV ONE (11:15)
[2016-08-21] MEDS ORDERED: VANCOMYCIN CONSULT ACTIVE PRN (11:45)
[2016-08-21] MEDS: MoRPHine SULFATE 2 MG/ML CARP IV PRN ×3 (13:50→19:35)
--- NOTE | 2016-08-21 14:47 | Pharmacy Progress Note ---
Pharmacy Antibiotic Consult Date of Service: Aug 21, 2016. Pharmacy Dosing Scope Pharmacy is consulted to initiate vancomycin IV dosing therapy, order appropriate labs and adjust drug dose/frequency. Subjective The patient is a 60 year old male admitted on Aug 19, 2016 at 19:01 with altered mental status. Objective Height (Feet): 4 Height (Inches): 9.00 Weight (Kilograms): 44.400 Lab Results (24hrs): Laboratory Tests Test 08/20/16 18:08 08/21/16 07:13 BUN/Creatinine Ratio 11.6 13.3 Blood Urea Nitrogen 17 mg/dl 19 mg/dl Creatinine 1.50 mg/dl 1.40 mg/dl White Blood Count 7.71 K/uL 6.01 K/uL Micro Results: RUN DATE: 08/21/16 [facility] LAB PAGE 1 RUN TIME: 0930 Specimen Inquiry PATIENT: MARLENI MOON [facility]: [facility] # : [id number] AGE/SX: 60/M ROOM: [facility] REG : 08/19/[address]: Ton Rankin MD : 1955 BED: 1 DIS : STATUS: ADM IN TLOC: SPEC #: [id number] HUSEYIN: 08/19/16 STATUS: MARK [place]KE #: [id number] RECD: 08/19/[address] [facility] [address]: Ricki Birch, PAAnton C SOURCE: URINE CATH ENTR: 08/19/16 [facility] DR: Dionisio Mora M.D. SPDESC: Diana Nicole M.D. ORDERED: CULTURE UR CATH Procedure Result Verified Site URINE CULTURE Final 08/21/16 Organism 1 PROTEUS MIRABILIS COLONY COUNT >100,000 CFU/ml SENS SENSITIVITY TO FOLLOW 1. PROTEUS MIRABILIS Target Route Dose RX AB Cost M.I.C. IQ ------ ----- ------ -- ------ -------- - ------ TRIMET/SULFA S <=2/38 AMPICILLIN S <=8 AMPICILLIN/SUL S <=8/4 CEFAZOLIN S <=8 CEFOTAXIME S <=2 CEFTRIAXONE S <=1 CEFEPIME S <=4 CEFUROXIME S <=4 GENTAMICIN S <=4 TOBRAMYCIN S <=4 AMIKACIN S <=16 CIPROFLOXACIN S <=1 LEVOFLOXACIN S <=2 ERTAPENEM S <=1 PIP/TAZO S <=16 S = SENSITIVE I = INTERMEDIATE R = RESISTANT Assessment & Plan ASSESSMENT: * Mr Moon is a 60 y/o M who was admitted on 08/19/2016 after his can tender noticed that the patient had decreased oral intake and had limb shaking. This is abnormal for him. He lives at a assisted. * He met most of the sepsis criteria on admission. Now his leukocytosis has resolved; however the patient remains febrile at times. Overnight, the patient had ripped off his oxygen and became cyanotic. He was a code purple. PLAN: Loading dose: vancomycin 1100 mg (25 mg/kg) IV X 1 dose then: vancomycin 700 mg IV every 24 hours (population pharmacokinetics suggest a half-life of 21 hours. HOWEVER, I believe the patient has an acute bump in his serum creatinine from the Lasix given during the code purple. Nonetheless, I will utilize less aggressive dosing until this resolves. A dose of 15 mg/kg was given) Goal peak level estimate: between 35 - 40 mcg/mL. Goal trough level estimate: between 15 - 20 mcg/mL (indication pulmonary source ). Trough has been ordered for: prior to noon dose. Pharmacy will continue to follow and will adjust dose/frequency as necessary. Thank you
--- NOTE | 2016-08-21 15:42 | Infectious Disease Progress Nt ---
Progress Note Date of Service Aug 21, 2016. Subjective Pt evaluation today including: conversation w/ patient, physical exam, chart review, lab review, review of studies, conversation w/ [facility] product consultant, review of inpatient medication list Recent events reviewed. Patient became acutely hypoxic, better with oxygen supplementation. Remains agitated. Blood cultures still negative, urine culture growing Proteus mirabilis. All Other Systems: Reviewed and Negative Medications Current Inpatient Medications Medications (Trade) Dose Ordered Sig/Idris Route Start Time Stop Time Status Last Admin Dose Admin Acetaminophen (Tylenol Tab) 650 mg Q4H PRN PO 08/19/16 19:00 09/18/16 18:59 08/21/16 08:09 650 MG Ondansetron HCl (Zofran Inj) 4 mg Q6H PRN IV 08/19/16 19:00 09/18/16 18:59 Al Hydrox/Mg Hydrox/Simethicone (Maalox Max Susp) 30 ml QID PRN PO 08/19/16 19:15 09/18/16 19:14 Aripiprazole (Abilify Tab) 5 mg DAILY PO 08/20/16 09:00 09/19/16 08:59 08/21/16 08:12 5 MG Aspirin (Ecotrin Tab) 81 mg DAILY PO 08/20/16 09:00 09/19/16 08:59 08/21/16 08:11 81 MG Docusate Sodium (coLACE CAP) 100 mg BID PO 08/19/16 21:00 09/18/16 20:59 08/21/16 08:11 100 MG Loperamide HCl (Imodium Cap) 4 mg Q8H PRN PO 08/19/16 19:15 09/18/16 19:14 Lorazepam (Ativan Tab) 1 mg BID PO 08/19/16 21:00 09/18/16 20:59 08/21/16 07:50 1 MG Magnesium Hydroxide (Milk Of Magnesia Susp) 30 ml QID PRN PO 08/19/16 19:15 09/18/16 19:14 Multivitamins (Multivitamin Tab) 1 tab DAILY PO 08/20/16 09:00 09/19/16 08:59 08/21/16 08:13 1 TAB Enteral Nutritional Formula (Boost) 1 can DAILY PO 08/20/16 09:00 09/19/16 08:59 08/21/16 08:10 1 CAN Pantoprazole Sodium (Protonix Tab) 40 mg BID PO 08/19/16 21:00 09/18/16 20:59 08/21/16 08:13 40 MG Pseudoephedrine HCl (Sudafed Tab) 30 mg Q4 PRN PO 08/19/16 19:15 09/18/16 19:14 Trazodone HCl (Desyrel Tab) 50 mg HS PO 08/19/16 21:00 09/18/16 20:59 08/20/16 22:37 50 MG Benztropine Mesylate (Cogentin Tab) 1 mg TID PO 08/19/16 21:00 09/18/16 20:59 08/21/16 14:05 1 MG Miscellaneous Information (Order Awaiting Action) 1 ea QS N/A 08/20/16 00:00 09/19/16 00:00 Lamotrigine (Lamictal Tab) 200 mg BID PO 08/19/16 21:00 09/18/16 20:59 08/21/16 08:10 200 MG Polyethylene 17 gm 17 gm DAILY PO 08/20/16 09:00 09/19/16 08:59 08/21/16 08:12 17 GM Piperacillin Sod/ Tazobactam Sod/ Dextrose (Zosyn Iv/D5 100ml) 115 ml @ 28 mls/hr Q8H IV 08/19/16 22:00 08/29/16 21:59 08/21/16 14:05 28 MLS/HR Piperacillin Sod/ Tazobactam Sod (Consult) 1 ea UD PRN N/A 08/19/16 21:30 09/18/16 21:29 Heparin Sodium (Porcine) (Heparin Sq 5000 Unit/0.5ml) 5,000 unit Q8H SQ 08/21/16 06:00 09/20/16 05:59 08/21/16 14:06 5,000 UNIT Morphine Sulfate (MoRPHine SULFATE INJ) 2 mg Q4 PRN IV 08/21/16 11:15 09/04/16 11:14 08/21/16 13:50 2 MG Vancomycin HCl 1 ea 1 ea UD PRN N/A 08/21/16 11:45 09/20/16 11:44 Vancomycin HCl/ Sodium Chloride (Vancomycin Inj/ Nss 250ml) 264 ml @ 125 mls/hr Q24H IV 08/22/16 12:00 08/28/16 23:59 Objective Vital Signs Date Time Temp Pulse Resp B/P Pulse Ox O2 Delivery O2 Flow Rate FiO2 08/21/16 14:14 37.0 08/21/16 11:48 37.1 08/21/16 10:03 37.1 08/21/16 08:00 95 Venturi Mask 15.0 50 08/21/16 07:33 36.9 109 24 117/71 90 Venturi Mask 15.0 107 08/21/16 04:03 37.1 88 22 110/68 99 Venturi Mask 50 08/21/16 04:00 90 Mask 15.0 50 08/21/16 00:00 90 Mask 15.0 50 08/20/16 22:52 37.2 88 22 113/72 90 Venturi Mask 50 08/20/16 20:00 93 Venturi Mask 15.0 50 08/20/16 16:37 38.3 111 22 113/68 96 5.0 Physical Exam General Appearance: WD/WN, + mild distress Eyes: normal inspection, sclerae normal ENT: normal ENT inspection, pharynx normal Neck: supple, no adenopathy, trachea midline Respiratory/Chest: lungs clear, normal breath sounds, no respiratory distress Cardiovascular: regular rate, rhythm, no gallop, no murmur Abdomen: normal bowel sounds, non tender, soft, no organomegaly Extremities: non-tender, no calf tenderness Neurologic/Psychiatric: alert, + disoriented Skin: normal color, no rash Lymphatic: no adenopathy Laboratory Results RUN DATE: 08/21/16 [facility] LAB PAGE 1 RUN TIME: 929 Specimen Inquiry PATIENT: MARLENI FORD [facility] # : [id number] AGE/SX: 60/M ROOM: [id number] REG : 08/19/[address]: Ton Rankin MD : 1955 BED: 1 DIS : STATUS: ADM IN TLOC: SPEC #: [id number] HUSEYIN: 08/19/16 STATUS: COMP REQ #: [id number] RECD: 08/19/[address]: Ricki Birch, MABEL Howard SOURCE: URINE CATH ENTR: 08/19/[address]: Dionisio Mora M.D. SPDESC: Diana Nicole M.D. ORDERED: CULTURE UR CATH Procedure Result Verified Site URINE CULTURE Final 08/21/16 Organism 1 PROTEUS MIRABILIS COLONY COUNT >100,000 CFU/ml SENS SENSITIVITY TO FOLLOW 1. PROTEUS MIRABILIS Target Route Dose RX AB Cost M.I.C. IQ ------ ----- ------ -- ------ -------- - ------ TRIMET/SULFA S <=2/38 AMPICILLIN S <=8 AMPICILLIN/SUL S <=8/4 CEFAZOLIN S <=8 CEFOTAXIME S <=2 CEFTRIAXONE S <=1 CEFEPIME S <=4 CEFUROXIME S <=4 GENTAMICIN S <=4 TOBRAMYCIN S <=4 AMIKACIN S <=16 CIPROFLOXACIN S <=1 LEVOFLOXACIN S <=2 ERTAPENEM S <=1 PIP/TAZO S <=16 S = SENSITIVE I = INTERMEDIATE R = RESISTANT END OF REPORT Last 24 Hours Test 08/20/16 18:02 08/20/16 18:08 08/20/16 18:49 08/20/16 22:05 Bedside Glucose 175 mg/dl White Blood Count 7.71 K/uL Red Blood Count 4.63 M/uL Hemoglobin 13.7 g/dL Hematocrit 42.0 % Mean Corpuscular Volume 90.7 fL Mean Corpuscular Hemoglobin 29.6 pg Mean Corpuscular Hemoglobin Concent 32.6 g/dl RDW Standard Deviation 48.2 fL RDW Coefficient of Variation 14.4 % Platelet Count 164 K/uL Mean Platelet Volume 9.5 fL Sodium Level 143 mmol/L Potassium Level 3.8 mmol/L Chloride Level 111 mmol/L Carbon Dioxide Level 15 mmol/L Anion Gap 17.0 mmol/L Blood Urea Nitrogen 17 mg/dl Creatinine 1.50 mg/dl Est Creatinine Clear Calc Drug Dose 32.3 ml/min Estimated GFR () 58.2 Estimated GFR (Non- 50.2 BUN/Creatinine Ratio 11.6 Random Glucose 173 mg/dl Calcium Level 7.5 mg/dl Phosphorus Level 2.3 mg/dl Magnesium Level 2.6 mg/dl Arterial Blood pH 7.37 Arterial Blood Partial Pressure CO2 30 mmHg Arterial Blood Partial Pressure O2 60 mm/Hg Arterial Blood HCO3 17 mmol/L Arterial Blood Oxygen Saturation 91.0 % Arterial Blood Base Excess -7.1 mEq/L Arterial Blood Gas Delivery 15 L Jim Test POS Urine Color YELLOW Urine Appearance CLEAR Urine pH 5.5 Urine Specific Stoddard 1.009 Urine Protein NEG Urine Glucose (UA) NEG Urine Ketones NEG Urine Occult Blood 1+ Urine Nitrite NEG Urine Bilirubin NEG Urine Urobilinogen NEG Urine Leukocyte Esterase TRACE Urine WBC (Auto) 1-5 /hpf Urine RBC (Auto) 0-4 /hpf Urine Hyaline Casts (Auto) 1-5 /lpf Urine Epithelial Cells (Auto) 5-10 /lpf Urine Bacteria (Auto) NEG Test 08/21/16 07:13 White Blood Count 6.01 K/uL Red Blood Count 4.63 M/uL Hemoglobin 13.5 g/dL Hematocrit 39.9 % Mean Corpuscular Volume 86.2 fL Mean Corpuscular Hemoglobin 29.2 pg Mean Corpuscular Hemoglobin Concent 33.8 g/dl RDW Standard Deviation 44.7 fL RDW Coefficient of Variation 14.1 % Platelet Count 128 K/uL Mean Platelet Volume 9.0 fL Sodium Level 141 mmol/L Potassium Level 3.2 mmol/L Chloride Level 107 mmol/L Carbon Dioxide Level 26 mmol/L Anion Gap 8.0 mmol/L Blood Urea Nitrogen 19 mg/dl Creatinine 1.40 mg/dl Est Creatinine Clear Calc Drug Dose 34.6 ml/min Estimated GFR () 63.3 Estimated GFR (Non- 54.6 BUN/Creatinine Ratio 13.3 Random Glucose 112 mg/dl Calcium Level 7.6 mg/dl Phosphorus Level 1.2 mg/dl Magnesium Level 2.5 mg/dl SINGLE VIEW CHEST CLINICAL HISTORY: Dyspnea. CHF. FINDINGS: An AP, portable, upright chest radiograph is compared to study dated 08/20/2016. The examination is degraded by portable technique and patient rotation. The heart is top normal for projection. Pulmonary vascular congestion persists. There are bilateral airspace opacities with a perihilar distribution. Trace pleural effusions are suspected. No pneumothorax is seen. The skeletal structures appear osteopenic. The bony thorax is grossly intact. IMPRESSION: 1. Pulmonary vascular congestion persists. 2. There are bilateral airspace opacities with a perihilar distribution. This represent pulmonary edema versus an infectious/inflammatory pneumonitis. Clinical correlation will be required. 3. Trace pleural effusions Assessment and Plan Sepsis with encephalopathy likely from urinary tract infection with Proteus mirabilis, although cannot rule out pneumonia on chest x-ray. Patient to continue on vancomycin and Zosyn for now. Await further culture results. Will follow.
--- NOTE | 2016-08-21 16:07 | Progress Note ---
Internal Med Progress Note Date of Service: Aug 21, 2016. Provider Documentation: SUBJECTIVE: restless on and off smiled afebrile requiring oxygen mask non verbal OBJECTIVE: Vital Signs-as noted below Exam: General-alert and awake restless ENT-normal hearing Neck-no neck masses Lungs-cta b/l no wheezing or crackles Heart-s1 and s2 heard regular rate and rhythm no murmurs Abdomen-soft bowel sounds present non tender no distension Extremities-no edema no erythema Neuro-alert and awake moves extremities Lab data as noted below. ASSESSMENT & PLAN: Sepsis with Metabolic Encephalopathy Secondary to urinary tract infection. CXr b/l Pneumonia? proteus in urine On iv Zosyn and Vancomycin continue same ID on board will monitor Mental retardation. He has been in a care home. somewhat restless on iv morphine prn will monitor Seizure disorder. He has not had any seizure for many many years. on Lamictal will monitor Hypothyroidism on Synthroid Dysphagia, On pureed diet and medications should be given with applesauce and/or yogurt. He also takes Boost. Gastrointestinal prophylaxis with Protonix. Deep venous thrombosis prophylaxis Heparin Code status. He will be a full code. DISPOSITION To be determined Vital Signs: Date Time Temp Pulse Resp B/P Pulse Ox O2 Delivery O2 Flow Rate FiO2 08/21/16 14:14 37.0 08/21/16 12:00 93 Venturi Mask 15.0 50 08/21/16 11:48 37.1 08/21/16 10:03 37.1 08/21/16 08:00 95 Venturi Mask 15.0 50 08/21/16 07:33 36.9 109 24 117/71 90 Venturi Mask 15.0 107 08/21/16 04:03 37.1 88 22 110/68 99 Venturi Mask 50 08/21/16 04:00 90 Mask 15.0 50 08/21/16 00:00 90 Mask 15.0 50 08/20/16 22:52 37.2 88 22 113/72 90 Venturi Mask 50 08/20/16 20:00 93 Venturi Mask 15.0 50 08/20/16 16:37 38.3 111 22 113/68 96 5.0 Lab Results: Results Past 24 Hours Test 08/20/16 18:02 08/20/16 18:08 08/20/16 18:49 4/10/17 22:05 Range/Units Bedside Glucose 175 70-99 mg/dl White Blood Count 7.71 4.8-10.8 K/uL Red Blood Count 4.63 4.7-6.1 M/uL Hemoglobin 13.7 14.0-18.0 g/dL Hematocrit 42.0 42-52 % Mean Corpuscular Volume 90.7 80-100 fL Mean Corpuscular Hemoglobin 29.6 25-34 pg Mean Corpuscular Hemoglobin Concent 32.6 32-36 g/dl RDW Standard Deviation 48.2 36.4-46.3 fL RDW Coefficient of Variation 14.4 11.5-14.5 % Platelet Count 164 130-400 K/uL Mean Platelet Volume 9.5 7.4-10.4 fL Sodium Level 143 136-145 mmol/L Potassium Level 3.8 3.5-5.1 mmol/L Chloride Level 111 98-107 mmol/L Carbon Dioxide Level 15 21-32 mmol/L Anion Gap 17.0 3-11 mmol/L Blood Urea Nitrogen 17 7-18 mg/dl Creatinine 1.50 0.60-1.40 mg/dl Est Creatinine Clear Calc Drug Dose 32.3 ml/min Estimated GFR () 58.2 Estimated GFR (Non- 50.2 BUN/Creatinine Ratio 11.6 10-20 Random Glucose 173 70-99 mg/dl Calcium Level 7.5 8.5-10.1 mg/dl Phosphorus Level 2.3 2.5-4.9 mg/dl Magnesium Level 2.6 1.8-2.4 mg/dl Arterial Blood pH 7.37 7.35-7.45 Arterial Blood Partial Pressure CO2 30 35-46 mmHg Arterial Blood Partial Pressure O2 60 80-95 mm/Hg Arterial Blood HCO3 17 19-24 mmol/L Arterial Blood Oxygen Saturation 91.0 90-95 % Arterial Blood Base Excess -7.1 -9-1.8 mEq/L Arterial Blood Gas Delivery 15 L Jim Test POS POS Urine Color YELLOW Urine Appearance CLEAR CLEAR Urine pH 5.5 4.5-7.5 Urine Specific Archie 1.009 1.000-1.030 Urine Protein NEG NEG Urine Glucose (UA) NEG NEG Urine Ketones NEG NEG Urine Occult Blood 1+ NEG Urine Nitrite NEG NEG Urine Bilirubin NEG NEG Urine Urobilinogen NEG NEG Urine Leukocyte Esterase TRACE NEG Urine WBC (Auto) 1-5 0-5 /hpf Urine RBC (Auto) 0-4 0-4 /hpf Urine Hyaline Casts (Auto) 1-5 0-5 /lpf Urine Epithelial Cells (Auto) 5-10 0-5 /lpf Urine Bacteria (Auto) NEG NEG Test 08/21/16 07:13 Range/Units White Blood Count 6.01 4.8-10.8 K/uL Red Blood Count 4.63 4.7-6.1 M/uL Hemoglobin 13.5 14.0-18.0 g/dL Hematocrit 39.9 42-52 % Mean Corpuscular Volume 86.2 80-100 fL Mean Corpuscular Hemoglobin 29.2 25-34 pg Mean Corpuscular Hemoglobin Concent 33.8 32-36 g/dl RDW Standard Deviation 44.7 36.4-46.3 fL RDW Coefficient of Variation 14.1 11.5-14.5 % Platelet Count 128 130-400 K/uL Mean Platelet Volume 9.0 7.4-10.4 fL Sodium Level 141 136-145 mmol/L Potassium Level 3.2 3.5-5.1 mmol/L Chloride Level 107 98-107 mmol/L Carbon Dioxide Level 26 21-32 mmol/L Anion Gap 8.0 3-11 mmol/L Blood Urea Nitrogen 19 7-18 mg/dl Creatinine 1.40 0.60-1.40 mg/dl Est Creatinine Clear Calc Drug Dose 34.6 ml/min Estimated GFR () 63.3 Estimated GFR (Non- 54.6 BUN/Creatinine Ratio 13.3 10-20 Random Glucose 112 70-99 mg/dl Calcium Level 7.6 8.5-10.1 mg/dl Phosphorus Level 1.2 2.5-4.9 mg/dl Magnesium Level 2.5 1.8-2.4 mg/dl Microbiology Results 08/20/16 Blood Culture, Received Pending 08/20/16 Blood Culture, Received Pending
[2016-08-21] MEDS ORDERED: FUROSEMIDE 40 MG/4 ML VIAL IV STA (18:53)
[2016-08-21] MEDS ORDERED: MoRPHine SULFATE 2 MG/ML CARP IV STA (19:17)
[2016-08-21] MEDS ORDERED: FUROSEMIDE 40 MG/4 ML VIAL ONE (19:17)
[2016-08-21] MEDS ORDERED: NITROGLYCERIN OINT 2% 1GM PACKET ONE (19:18)
[2016-08-21] MEDS ORDERED: MAGNESIUM SULFATE 1GM / D5W 1 GM BAG IV STA (19:18)
[2016-08-21] MEDS ORDERED: LEVALBUTEROL 1.25MG/0.5ML NEB INH STA (19:21)
[2016-08-21] MEDS ORDERED: FUROSEMIDE INJ 40 MG in SYRINGE 0 ML IV ONE (19:30)
[2016-08-21] MEDS ORDERED: NURSING VERBAL MED ORDER ONE (19:30)
[2016-08-21] MEDS: ALBUT/IPRATROP 3MG/0.5MG NEB 3 ML VIAL INH SCH ×2 (19:30→20:00)
[2016-08-21] MEDS: NITROGLYCERIN OINT 2% 1GM PACKET EXT SCH (19:30)
[2016-08-21 19:33] LABS: HEMATOCRIT 43.7 % (42-52); MEAN CELL VOLUME 87.6 fL (80-100); MEAN CORPUSCULAR HEMOGLOBIN 29.5 pg (25-34); MEAN CORPUSCULAR HGB CONC 33.6 g/dl (32-36); MEAN PLATELET VOLUME 9.8 fL (7.4-10.4); PLATELET COUNT 139 K/uL (130-400); RED BLOOD COUNT 4.99 M/uL (4.7-6.1); WHITE BLOOD COUNT 9.77 K/uL (4.8-10.8)
[2016-08-21] MEDS: MAGNESIUM SULFATE 1GM / D5W 1 GM in PREMIXED IN D5W 100 ML IV SCH ×2 (19:33→19:46)
[2016-08-21] MEDS: LEVOFLOXACIN / D5W 750 MG in PREMIXED IN D5W 150 ML IV SCH (19:36)
[2016-08-21 19:52] LABS: INR 1.2 (0.9-1.1); PARTIAL THROMBOPLASTIN RATIO 1.1; PROTHROMBIN TIME (PATIENT) 13.3 SECONDS (9.0-12.0)
[2016-08-21 19:53] LABS: BUN/CREATININE RATIO 11.7 (10-20); CALCIUM 7.8 mg/dl (8.5-10.1); CREATININE 1.5 mg/dl (0.60-1.40); MAGNESIUM 2.6 mg/dl (1.8-2.4); POTASSIUM 3.6 mmol/L (3.5-5.1)
[2016-08-21] MEDS ORDERED: METHYLPREDNISOLONE 125 MG VIAL IV STA (19:53)
--- NOTE | 2016-08-21 19:55 | Critical Care Consultation ---
Critical Care Consultation Date of Consultation: Aug 21, 2016. Attending Physician: Ton Rankin MD Reason for Consultation: ICU Management History of Present Illness Mr Moon is a 60 year old male with MR, reportedly a hx of CHF, chronic hepatitis B, history of prior UTIs, hypothyroidism, who presented initially with altered mental status, and treated for sepsis for presumed UTI. He grew Proteus in his urine and is been treated with Vancomycin and Zosyn. At baseline he is non-verbal. We were consulted today due to increased temperature, which was 39C, increasing agitation and increased oxygen requirement. Upon arrival, he was tachypneic. He was not responding verbally, and would occasionally smile to staff, but then frowned as well. He was transferred to the ICU this evening for further management. Past Medical/Surgical History Medical Problems: (1) Dysphagia (2) Hepatitis B (3) Hypothyroidism (4) Mental retardation (5) Pneumonia Family History Patient reports no known family medical history. No pertinent fhx Social History Smoking Status: Never Smoker Drug Use: none Marital Status: single Housing Status: assisted living Occupation Status: disabled Allergies Coded Allergies: Haloperidol (Verified Allergy, Mild, 05/14/16) Loxapine (Verified Allergy, Mild, 05/14/16) Thioridazine (Verified Allergy, Mild, 05/14/16) Clonazepam (Unverified Allergy, Unknown, UNKNOWN, 05/14/16) Sulfamethoxazole w/Trimethoprim (Unverified Allergy, Unknown, UNKNOWN, 05/14) Zonisamide (Unverified Allergy, Unknown, UNKNOWN, 05/14/16) Diazepam (Verified Adverse Reaction, Mild, 05/14/16) Imipramine (Verified Adverse Reaction, Mild, 05/14/16) Risperidone (Verified Adverse Reaction, Mild, 05/14/16) Home Medications Scheduled Aripiprazole (Abilify), 5 MG PO DAILY Aspirin (Aspirin Chewable), 81 MG PO DAILY Benztropine Mesylate (Benztropine Mesylate), 1 TAB PO TID Docusate Sodium (Docusate Sodium), 100 MG PO BID Entecavir (Baraclude), 0.5 MG PO DAILY Lamotrigine (Lamictal), 200 MG PO BID Loperamide Hcl (Imodium), 4 MG PO ONSET OF LOOSE STOOL Lorazepam (Ativan), 1 MG PO BID Multiple Vitamin (Multivitamin), 1 TABLET PO DAILY Nutritional Supplements (Boost), 1 CAN PO DAILY Pantoprazole (Protonix), 40 MG PO BID Polyethylene Glycol 3350 (Miralax), 17 GM PO DAILY Sodium Fluoride (Dental) (Prevident Rinse), 1 DOSE MT UD Trazodone Hcl (Desyrel), 50 MG PO HS Scheduled PRN Acetaminophen (Tylenol 8 Hour Arthritis), 650 MG PO Q6H PRN for Fever or Headache Aluminum/Magnesium/Simeth (Maalox Max Susp), 30 ML PO QID PRN for PRN Magnesium Hydroxide (Milk Of Magnesia), 30 ML PO QID PRN for UPSET STOMACH Pseudoephedrine (Sudafed), 30 MG PO Q4 PRN for CONGESTION Current Inpatient Medications Current Inpatient Medications Medications (Trade) Dose Ordered Sig/Idris Route Start Time Stop Time Status Last Admin Dose Admin Acetaminophen (Tylenol Tab) 650 mg Q4H PRN PO 08/19/16 19:00 09/18/16 18:59 08/21/16 08:09 650 MG Ondansetron HCl (Zofran Inj) 4 mg Q6H PRN IV 08/19/16 19:00 09/18/16 18:59 Al Hydrox/Mg Hydrox/Simethicone (Maalox Max Susp) 30 ml QID PRN PO 08/19/16 19:15 09/18/16 19:14 Aripiprazole (Abilify Tab) 5 mg DAILY PO 08/20/16 09:00 09/19/16 08:59 08/21/16 08:12 5 MG Aspirin (Ecotrin Tab) 81 mg DAILY PO 08/20/16 09:00 09/19/16 08:59 08/21/16 08:11 81 MG Docusate Sodium (coLACE CAP) 100 mg BID PO 08/19/16 21:00 09/18/16 20:59 08/21/16 08:11 100 MG Loperamide HCl (Imodium Cap) 4 mg Q8H PRN PO 08/19/16 19:15 09/18/16 19:14 Lorazepam (Ativan Tab) 1 mg BID PO 08/19/16 21:00 09/18/16 20:59 08/21/16 07:50 1 MG Magnesium Hydroxide (Milk Of Magnesia Susp) 30 ml QID PRN PO 08/19/16 19:15 09/18/16 19:14 Multivitamins (Multivitamin Tab) 1 tab DAILY PO 08/20/16 09:00 09/19/16 08:59 08/21/16 08:13 1 TAB Enteral Nutritional Formula (Boost) 1 can DAILY PO 08/20/16 09:00 09/19/16 08:59 08/21/16 08:10 1 CAN Pantoprazole Sodium (Protonix Tab) 40 mg BID PO 08/19/16 21:00 09/18/16 20:59 08/21/16 08:13 40 MG Trazodone HCl (Desyrel Tab) 50 mg HS PO 08/19/16 21:00 09/18/16 20:59 08/20/16 22:37 50 MG Benztropine Mesylate (Cogentin Tab) 1 mg TID PO 08/19/16 21:00 09/18/16 20:59 08/21/16 14:05 1 MG Miscellaneous Information (Order Awaiting Action) 1 ea QS N/A 08/20/16 00:00 09/19/16 00:00 Lamotrigine (Lamictal Tab) 200 mg BID PO 08/19/16 21:00 09/18/16 20:59 08/21/16 08:10 200 MG Polyethylene 17 gm 17 gm DAILY PO 08/20/16 09:00 09/19/16 08:59 08/21/16 08:12 17 GM Piperacillin Sod/ Tazobactam Sod/ Dextrose (Zosyn Iv/D5 100ml) 115 ml @ 28 mls/hr Q8H IV 08/19/16 22:00 08/29/16 21:59 08/21/16 14:05 28 MLS/HR Piperacillin Sod/ Tazobactam Sod (Consult) 1 ea UD PRN N/A 08/19/16 21:30 09/18/16 21:29 Heparin Sodium (Porcine) (Heparin Sq 5000 Unit/0.5ml) 5,000 unit Q8H SQ 08/21/16 06:00 09/20/16 05:59 08/21/16 14:06 5,000 UNIT Morphine Sulfate (MoRPHine SULFATE INJ) 2 mg Q4 PRN IV 08/21/16 11:15 09/04/16 11:14 08/21/16 19:35 2 MG Vancomycin HCl 1 ea 1 ea UD PRN N/A 08/21/16 11:45 09/20/16 11:44 Vancomycin HCl 700 mg/Sodium Chloride 264 ml @ 125 mls/hr Q24H IV 08/22/16 12:00 08/28/16 23:59 Levofloxacin/Prmx (Levaquin / D5W/ Premixed D5W) 150 ml @ 100 mls/hr Q24H IV 08/21/16 19:00 08/28/16 18:59 08/21/16 19:36 100 MLS/HR Nitroglycerin (Nitroglycerin 2% Oint) 1 inch Q6H EXT 08/21/16 19:30 09/20/16 19:29 Albuterol/ Ipratropium 3 ml 3 ml Q4R INH 08/21/16 19:18 09/20/16 19:17 Magnesium Sulfate/ Prmx (Magnesium Sulfate/Premixed D5W) 100 ml @ 100 mls/hr Q1H IV 08/21/16 19:30 08/21/16 21:29 08/21/16 19:33 100 MLS/HR Levalbuterol (Xopenex 1.25MG/ 0.5ML Neb) 1.25 mg Q6R INH 08/21/16 21:00 09/20/16 20:59 UNV Review of Systems Unable to obtain ROS Physical Exam Date Time Temp Pulse Resp B/P Pulse Ox O2 Delivery O2 Flow Rate FiO2 08/21/16 19:30 135 26 96 Venturi Mask 50 08/21/16 16:00 Venturi Mask 15.0 50 08/21/16 14:14 37.0 08/21/16 12:00 93 Venturi Mask 15.0 50 08/21/16 11:48 37.1 08/21/16 10:03 37.1 08/21/16 08:00 95 Venturi Mask 15.0 50 08/21/16 07:33 36.9 109 24 117/71 90 Venturi Mask 15.0 107 08/21/16 04:03 37.1 88 22 110/68 99 Venturi Mask 50 08/21/16 04:00 90 Mask 15.0 50 08/21/16 00:00 90 Mask 15.0 50 08/20/16 22:52 37.2 88 22 113/72 90 Venturi Mask 50 08/20/16 20:00 93 Venturi Mask 15.0 50 General Appearance: uncomfortable (initially uncomfortable, then calmed down), mild distress, thin Head: normocephalic, atraumatic Eyes: PERRLA, pupils unequal ENT: normal ear exam, normal nasal exam Neck: trachea midline, no stridor Respiratory: rhonchi (mild), wheezing (mild) Cardiovasular: normal S1S2, no murmur, irregular rate (tachycardic) Abdomen: no rebound Upper Extremities: no edema Lower Extremities: no edema Laboratory Results Last 24 Hours Test 08/20/16 22:05 08/21/16 07:13 08/21/16 19:24 Urine Color YELLOW Urine Appearance CLEAR Urine pH 5.5 Urine Specific [place] 1.009 Urine Protein NEG Urine Glucose (UA) NEG Urine Ketones NEG Urine Occult Blood 1+ Urine Nitrite NEG Urine Bilirubin NEG Urine Urobilinogen NEG Urine Leukocyte Esterase TRACE Urine WBC (Auto) 1-5 /hpf Urine RBC (Auto) 0-4 /hpf Urine Hyaline Casts (Auto) 1-5 /lpf Urine Epithelial Cells (Auto) 5-10 /lpf Urine Bacteria (Auto) NEG White Blood Count 6.01 K/uL 9.77 K/uL Red Blood Count 4.63 M/uL 4.99 M/uL Hemoglobin 13.5 g/dL 14.7 g/dL Hematocrit 39.9 % 43.7 % Mean Corpuscular Volume 86.2 fL 87.6 fL Mean Corpuscular Hemoglobin 29.2 pg 29.5 pg Mean Corpuscular Hemoglobin Concent 33.8 g/dl 33.6 g/dl RDW Standard Deviation 44.7 fL 46.5 fL RDW Coefficient of Variation 14.1 % 14.5 % Platelet Count 128 K/uL 139 K/uL Mean Platelet Volume 9.0 fL 9.8 fL Sodium Level 141 mmol/L Potassium Level 3.2 mmol/L Chloride Level 107 mmol/L Carbon Dioxide Level 26 mmol/L Anion Gap 8.0 mmol/L Blood Urea Nitrogen 19 mg/dl Creatinine 1.40 mg/dl Est Creatinine Clear Calc Drug Dose 34.6 ml/min Estimated GFR () 63.3 Estimated GFR (Non- 54.6 BUN/Creatinine Ratio 13.3 Random Glucose 112 mg/dl Calcium Level 7.6 mg/dl Phosphorus Level 1.2 mg/dl Magnesium Level 2.5 mg/dl Diagnostic Results CXR today: IMPRESSION: 1. Pulmonary vascular congestion persists. 2. There are bilateral airspace opacities with a perihilar distribution. This represent pulmonary edema versus an infectious/inflammatory pneumonitis. Clinical correlation will be required. 3. Trace pleural effusions Assessment & Plan 60 yo non-verbal male with increased respiratory distress & hypothermia - differential includes CHF exacerbation, reactive airway disease, sepsis, PE, anxiety, medication interaction. Neuro: - Will stop anti-emetics (Zofran) as this could contribute to new symptoms - Provided further 2mg Morphine IV when transferred to ICU, has 2mg PRN as well Resp: - Improved significantly after Duoneb infusion / Lasix - Provided 2g Mag Sulfate IV - Will continue Duonebs, start steroids with SoluMedrol 125mg IV q6h - Repeat CXR in AM - Will check procalcitonin and lactic acid - Will exclude PE with venous duplex of legs. Is not a candidate for V/Q scan or CT scan. CVS: - Remains tachycardic, but not a candidate for beta curt at this time. - Provided/continue to reduce preload with Nitropaste 1 inch as needed - Will obtain an Echo in the AM, unable to find a previous in his chart - Diuresed with 40mg IV Lasix, continue aggressive diuresis - Strict I&O monitoring. Has Rodriguez present. ID: - Rigors ?Drug effect - Continue Vanc and Zosyn for urinary Proteus - Repeat cultures obtained yesterday are still pending, initial cultures negative GI: - Soft diet - Aspiration precautions - Will check a lipase - Will obtain a noncontrast CT of abdomen and pelvis Renal: - Bedside renal US completed by Dr Reyna. Please refer to his note for details of this. - Electrolytes pending. Previously had a low Phos, will recheck all levels today. Endo: - Will check a TSH, Free T4 and Random Cortisol Heme: - H&H and platelets all normal CODE STATUS: FULL CODE - RN updated family contact. Patient is from a [facility] and has a son. Need to elicit who POA is. Resident Physician Supervision Note: Dr. Real was resident physician during care of patient. I separately evaluated patient and did history and exam. I discussed the case with the resident and generally agree with the findings and plan. Patient is a 60-year-old developmentally delayed male who has had persistent rigors and temperature despite broad-spectrum antibiotics. Source of infection likely urine, it is noted that the patient did not have a lactic acidosis upon initial presentation. I had seen the patient briefly yesterday during [facility]. At that time I performed a limited bedside ultrasound which was consistent with volume overload and pulmonary edema. Today patient is referred has increasing oxygen requirements, again I performed a limited bedside ultrasound which didn't demonstrate a significant pulmonary edema, and the patient was hypertensive. He was treated with IV Lasix, 1 sublingual nitroglycerin as well as 1 inch of Nitropaste, patient had significant resolution of his tachypnea. Additionally was also found to be wheezing, I believe he has an aspect of reactive airway disease, he's been started on steroids as well as given IV magnesium. We stopped all antiemetics that could be causing hyperthermia and interacting with his antipsychotics. Drug fever still remains in the differential. We have ordered a formal venous duplex ultrasound, I believe the hypoxic respiratory failure is secondary to combination of reactive airway disease as well as volume overload. I do not feel that this is outbound call center representative of pulmonary embolism, and accordingly we will continue with DVT prophylaxis as are no objective findings of acute DVT at this time. His creatinine appears to be near his baseline we will continue to aggressively diurese the patient having globally negative, he was globally positive from yesterday. We have ordered a formal echocardiogram, his lactic acid is elevated at 8, I am still concerned for sepsis. We'll obtain a noncontrast CT scan of the abdomen and pelvis looking for any obvious signs of infection. We have sent the influenza swab for formal PCR. Obtain a non-con CT scan of his head to rule out sinusitis. It is difficult to ascertain whether the patient is at his baseline with regards to his mental status. He appears quite comfortable in bed and is interacting, does not exhibit Kernig's or Brudzinski sign therefore I do not believe that meningitis or encephalitis is high on the differential at this time. The lactate may be artificially elevated as was obtained and during an acute pulmonary edema episode and the patient was also receiving Xopenex. I have personally spent 60 minutes of critical care time in the direct management of this patient. This is a life/limb threatening event. This includes time spent evaluating patient, direct bedside care, chart review, placing orders, interpretation of diagnostic studies, discussion with consultants, patient, and family members, as well as other required patient management activities. This time is exclusive of all separately billable procedures, and teaching time and separate from and in addition to any other critical care service time. Documented By: Dionisio Reyna DO Resident Tracking Resident Involvement: Resident Care Provided Care Provided: Adult Hospital Medicine (ICU)
--- NOTE | 2016-08-21 20:12 | Progress Note ---
Internal Med Progress Note Date of Service: Aug 21, 2016. Provider Documentation: patient was getting restless on and off. requiring high oxygen. Spiked temp.CXr CHF?pneumonia. Broadened iv abx. D/ W Critical care. Transferred to ICU. A dose of iv Lasix and started on iv steroids for reactive airway disease. Close monitor in ICU. Greatly Appreciate critical care help ASSESSMENT & PLAN: Sepsis with Metabolic Encephalopathy Secondary to urinary tract infection. CXr b/l Pneumonia? proteus in urine On iv Zosyn and Vancomycin continue same ID on board will monitor Mental retardation. He has been in a correction. somewhat restless on iv morphine prn will monitor Seizure disorder. He has not had any seizure for many many years. on Lamictal will monitor Hypothyroidism on Synthroid Dysphagia, On pureed diet and medications should be given with applesauce and/or yogurt. He also takes Boost. Gastrointestinal prophylaxis with Protonix. Deep venous thrombosis prophylaxis Heparin Code status. He will be a full code. DISPOSITION To be determined Vital Signs: Date Time Temp Pulse Resp B/P Pulse Ox O2 Delivery O2 Flow Rate FiO2 08/21/16 19:30 135 26 96 Venturi Mask 50 08/21/16 18:11 38.0 118 24 158/84 97 Mechanical Ventilator 15.0 50 08/21/16 16:00 Venturi Mask 15.0 50 08/21/16 14:14 37.0 08/21/16 12:00 93 Venturi Mask 15.0 50 08/21/16 11:48 37.1 08/21/16 10:03 37.1 08/21/16 08:00 95 Venturi Mask 15.0 50 08/21/16 07:33 36.9 109 24 117/71 90 Venturi Mask 15.0 107 08/21/16 04:03 37.1 88 22 110/68 99 Venturi Mask 50 08/21/16 04:00 90 Mask 15.0 50 08/21/16 00:00 90 Mask 15.0 50 08/20/16 22:52 37.2 88 22 113/72 90 Venturi Mask 50 Lab Results: Results Past 24 Hours Test 08/20/16 22:05 08/21/16 00:00 08/21/16 07:13 08/21/16 19:24 Range/Units Urine Color YELLOW Urine Appearance CLEAR CLEAR Urine pH 5.5 4.5-7.5 Urine Specific [place] 1.009 1.000-1.030 Urine Protein NEG NEG Urine Glucose (UA) NEG NEG Urine Ketones NEG NEG Urine Occult Blood 1+ NEG Urine Nitrite NEG NEG Urine Bilirubin NEG NEG Urine Urobilinogen NEG NEG Urine Leukocyte Esterase TRACE NEG Urine WBC (Auto) 1-5 0-5 /hpf Urine RBC (Auto) 0-4 0-4 /hpf Urine Hyaline Casts (Auto) 1-5 0-5 /lpf Urine Epithelial Cells (Auto) 5-10 0-5 /lpf Urine Bacteria (Auto) NEG NEG White Blood Count 6.01 9.77 4.8-10.8 K/uL Red Blood Count 4.63 4.99 4.7-6.1 M/uL Hemoglobin 13.5 14.7 14.0-18.0 g/dL Hematocrit 39.9 43.7 42-52 % Mean Corpuscular Volume 86.2 87.6 80-100 fL Mean Corpuscular Hemoglobin 29.2 29.5 25-34 pg Mean Corpuscular Hemoglobin Concent 33.8 33.6 32-36 g/dl RDW Standard Deviation 44.7 46.5 36.4-46.3 fL RDW Coefficient of Variation 14.1 14.5 11.5-14.5 % Platelet Count 128 139 130-400 K/uL Mean Platelet Volume 9.0 9.8 7.4-10.4 fL Sodium Level 141 142 136-145 mmol/L Potassium Level 3.2 3.6 3.5-5.1 mmol/L Chloride Level 107 106 98-107 mmol/L Carbon Dioxide Level 26 20 21-32 mmol/L Anion Gap 8.0 16.0 3-11 mmol/L Blood Urea Nitrogen 19 18 7-18 mg/dl Creatinine 1.40 1.50 0.60-1.40 mg/dl Est Creatinine Clear Calc Drug Dose 34.6 32.3 ml/min Estimated GFR () 63.3 58.2 Estimated GFR (Non- 54.6 50.2 BUN/Creatinine Ratio 13.3 11.7 10-20 Random Glucose 112 119 70-99 mg/dl Calcium Level 7.6 7.8 8.5-10.1 mg/dl Phosphorus Level 1.2 2.5-4.9 mg/dl Magnesium Level 2.5 2.6 1.8-2.4 mg/dl Prothrombin Time 13.3 9.0-12.0 SECONDS Prothromb Time International Ratio 1.2 0.9-1.1 Activated Partial Thromboplast Time 29.7 21.0-31.0 SECONDS Partial Thromboplastin Ratio 1.1 Alanine Aminotransferase (ALT/SGPT) 86 12-78 U/L Albumin 2.6 3.4-5.0 gm/dl Microbiology Results 08/20/16 Blood Culture, Received Pending 08/20/16 Blood Culture, Received Pending 08/21/16 MRSA DNA Surveillance Screen - Final, Complete Specimen Negative for MRSA by DNA Probe
[2016-08-21 20:29] LABS: ALB/GLOB RATIO 0.6 (0.9-2); PHOSPHORUS 2.6 mg/dl (2.5-4.9); THYROID STIMULATING HORMONE 2.01 uIu/ml (0.300-4.500)
--- NOTE | 2016-08-21 20:48 | Procedure Note ---
Procedure Note Date of Service Aug 21, 2016. Procedure Note Critical Care Medicine Point of Care Bedside Ultrasound Procedure: Limited Bedside Renal Ultrasound Procedure Date: 08/21/2016 Indication: Urinary tract infection, persistent fever and rigor's Attending: Demario Reyna DO Resident/Physician Air Conditioning Unit Tester: Addie Organs Examined: kidneys, ureter, bladder Right Kidney Kidney present: Yes Both Poles visualized: Yes Hydronephrosis: Or no Hepatorenal space fluid visualized: Yes Concern for Mass/Cyst: No Left Kidney Kidney present: Yes Both Poles visualized: Yes Hydronephrosis: No Splenorenal space fluid visualized: Yes Concern for Mass/Cyst: No Bladder Rodriguez present: Yes Fluid in Bladder present: Yes Fluid in rectovesicle recesss: No Concern for Mass: No Ureteral Jets: Lateral, present Impression: Normal limited renal ultrasound Images obtained are saved for permanent record
--- NOTE | 2016-08-21 20:49 | DIAGNOSTIC IMAGING REPORT ---
BILATERAL LOWER EXTREMITY VENOUS DOPPLER HISTORY: Sepsis. Assess for DVT. COMPARISON STUDY: None. FINDINGS: There is normal compressibility, flow, and augmentation within the bilateral lower extremity deep venous systems. IMPRESSION: No DVT within the right or left lower extremity. Electronically signed by: Jaya Hines M.D. 08/21/2016 8:47 PM Dictated Date/Time: 08/21/2016 8:46 PM
[2016-08-21] MEDS: LEVALBUTEROL 1.25MG/0.5ML NEB INH SCH (20:53)
[2016-08-21 20:57] LABS: COMPLETE YES; LYMPH ABS # 1.35 K/uL (1.2-3.4); LYMPHOCYTE % 13.8 %; NEUTROPHILS % 80.2 %
[2016-08-21] MEDS: METHYLPREDNISOLONE IV 125 MG in SYRINGE 0 ML IV SCH (21:13)
[2016-08-21] MEDS: TRAZODONE HCL 50 MG TAB PO SCH (21:14)
[2016-08-21 21:18] LABS: INFLUENZA A PCR Neg for Influ A (NEG); INFLUENZA B PCR Neg for Influ B (NEG)
--- NOTE | 2016-08-21 21:21 | DIAGNOSTIC IMAGING REPORT ---
ABDOMEN AND PELVIS CT WITHOUT CONTRAST CT DOSE: 392.39 mGycm HISTORY: febrile, rigors - ?bowel pathology. PT IS NONVERBAL TECHNIQUE: Multiaxial CT images of the abdomen and pelvis were performed without contrast. COMPARISON STUDY: Chest and abdominal series 10/05/2015. FINDINGS: Moderate right and small left pleural effusions. Patchy densities within the bilateral lower lobes posteriorly. This favors compressive atelectasis from the pleural effusions but could also represent a pneumonia. There is motion artifact resulting in suboptimal evaluation. No pneumoperitoneum. No pneumatosis. No fractures within the visualized osseous structures. Mild body wall edema. Suspect a small hiatus hernia. The unenhanced liver, spleen, gallbladder, adrenal glands, pancreas, and kidneys are unremarkable. No renal stones or hydronephrosis. There is also streak artifact through the abdomen and pelvis due to the patient's overlapping arms. There is a Rodriguez catheter within the bladder. The prostate gland is mildly enlarged. Large amount well-formed stool seen within the rectum. The rectum is distended up to 6.5 cm. Suboptimal evaluation for bowel pathology due to the lack of intravenous and oral contrast. However, there is no definite bowel wall thickening or obstruction. Normal caliber appendix measuring 5 mm. IMPRESSION: 1. No definite bowel wall thickening or obstruction. 2. Normal caliber appendix. 3. No renal stones or hydronephrosis. 4. Mild body wall edema. 5. Rodriguez catheter within the bladder. 6. Large amount of well-formed stool seen within the colon. 7. Moderate right and small left pleural effusions. Bilateral lower lobe consolidations favor compressive atelectasis from the pleural effusions. However, a pneumonia could also have a similar appearance. 8. The study is limited from a technical standpoint as described above Electronically signed by: Jaya Hines M.D. 08/21/2016 9:19 PM Dictated Date/Time: 08/21/2016 9:10 PM
[2016-08-22] VITALS (16 sets, daily range): BP systolic 101–159; BP diastolic 50–88; PULSE 78–139; TEMP 36.3–36.8; O2SAT 90–100
[2016-08-22] MEDS: NITROGLYCERIN OINT 2% 1GM PACKET EXT SCH ×4 (01:20→20:01)
[2016-08-22] MEDS: LEVALBUTEROL 1.25MG/0.5ML NEB INH SCH ×4 (02:00→19:52)
[2016-08-22] MEDS ORDERED: FUROSEMIDE INJ 40 MG in SYRINGE 0 ML IV ONE (02:45)
[2016-08-22] MEDS: METHYLPREDNISOLONE IV 125 MG in SYRINGE 0 ML IV SCH (03:14)
[2016-08-22] MEDS ORDERED: FUROSEMIDE 40 MG/4 ML VIAL ONE (03:16)
[2016-08-22] MEDS ORDERED: POTASSIUM CHLORIDE 10 MEQ TABCR PO STA (03:50)
[2016-08-22] MEDS ORDERED: POTASSIUM PHOS 3 MMOL/1 ML INFUSION IV STA (03:51)
[2016-08-22] MEDS ORDERED: POTASSIUM PHOSPHATE INJ 9 MMOL in SODIUM CHLORIDE 0.9% 250ML 250 ML IV SCH (04:00)
[2016-08-22] MEDS: POTASSIUM CHLR 10 MEQ / WTR 10 MEQ in PREMIXED WATER 100 ML IV SCH ×2 (04:17→05:27)
[2016-08-22 04:46] LABS: HEMATOCRIT 41.2 % (42-52); MEAN CELL VOLUME 86.6 fL (80-100); MEAN CORPUSCULAR HGB CONC 34.7 g/dl (32-36); PLATELET COUNT 123 K/uL (130-400); RED BLOOD COUNT 4.76 M/uL (4.7-6.1); WHITE BLOOD COUNT 5.43 K/uL (4.8-10.8)
[2016-08-22 05:03] LABS: BUN/CREATININE RATIO 14.1 (10-20); CREATININE 1.4 mg/dl (0.60-1.40); POTASSIUM 3.5 mmol/L (3.5-5.1)
[2016-08-22] MEDS: PIPERACILL/TAZOBAC IV 3.375 GM in DEXTROSE 5% 100ML 100 ML IV SCH ×3 (05:27→22:40)
[2016-08-22] MEDS: HEPARIN SOD 5000 UNIT/0.5 ML CARP SQ SCH ×3 (05:29→22:41)
--- NOTE | 2016-08-22 07:25 | Critical Care Progress Note ---
Critical Care Progress Note Date of Service Aug 22, 2016. ICU Day ICU Day Number: [address] Reyna Subjective More awake and alert today. Per tram operator, pt was tolerating face mask, but when transitioned to NC was picking at it frequently. Tachycardia improved significantly. Objective General Appearance: no acute distress, thin Head: normocephalic, atraumatic Eyes: PERRLA, pupils unequal ENT: normal ear exam, normal nasal exam Neck: trachea midline, no stridor Respiratory: clear to auscultation - significantly improved since yesterday Cardiovasular: normal S1S2, no murmur, regular rate Abdomen: no rebound Upper Extremities: no edema Lower Extremities: no edema Current SOFA Score SOFA Score Response (Comments) Value Platelets (x10) < 150 1 [place] Coma Score 13 - 14 1 Level of Hypotension No Hypotension 0 Creatinine (mg/dL) 1.2 - 1.9 1 Total 3 Assessment & Plan 60 yo non-verbal male with increased respiratory distress & hypothermia - differential includes CHF exacerbation, reactive airway disease, sepsis, PE, anxiety, medication interaction. Neuro: - Seems to be at baseline - Stopped anti-emetics (Zofran) as this could contribute to new symptoms - Improved since yesterday now that resp distress has improved - Has morphine PRN Resp: - Improved significantly after Duoneb infusion / Lasix - Does not tolerate Bipap mask, will dc this - Provided 2g Mag Sulfate IV, will recheck level today - Will continue Duonebs - Convert steroids to 40 prednisone PO x 4 days - Procalcitonin 0.55, Lactic acid was 8, then repeat 5 hours later was 1. - Will exclude PE with venous duplex of leg, ordered for today. Is not a candidate for V/Q scan or CT scan. CVS: - Tachycardia improved significantly. - Provided/continue to reduce preload with Nitropaste 1 inch as needed - Echo completed, pending read - In total received 3 x 40mg Lasix IV, has put out 1.2L - Strict I&O monitoring. Has Michael present, will keep for now ID: - Rigors ?Drug effect - Continue Vanc and Zosyn for urinary Proteus - Repeat cultures obtained yesterday are still pending, initial cultures negative GI: - Soft diet - Aspiration precautions - Lipase 492 - CT abdomen/pelvis: No definite bowel wall thickening/obstruction. Normal appendix. No renal stones. Large amount of stool. Bilateral lower lobe effusions. - Lactulose today Renal: - Bedside renal US completed by Dr Reyna. Please refer to his note for details of this. - Cr 1.5 today, baseline 1.10. Endo: - TSH 2.010, Free T4 1.30 - Random cortisol 40.66 - BSG 175 Heme: - Hb 14.3, Hct 41.2 - Plts 123 (previously 139) CODE STATUS: FULL CODE - RN updated family contact. Patient is from a prison and has a sister who is medical decision maker. Need to determine goals of care. Dispo: Anticipate transfer to Tele later today, will update Dr Rankin accordingly Resident Physician Supervision Note: Dr. Real was resident physician during care of patient. I separately evaluated patient and did history and exam. I discussed the case with the resident and generally agree with the findings and plan. Patient responding clinically to treatment for presumptive EF preserved congestive heart failure, findings on echo today not consistent with clinical diagnosis: grade 1 diastolic dysfunction, no evidence of hypertrophy nor dilatation. Other differential diagnoses include negative pressure pulmonary edema however the patient should not have responded to normal acute CHF treatments as quickly as he did. Would consider adding low-dose beta curt for more rate control. I believe we have reached a dry weight. Patient did have a bowel movement today, on room air saturating okay continuing steroids for reactive airway disease I reviewed the CT scan of the abdomen which contained images of the bilateral lung bases, there is evidence of pleural effusions bilaterally. If the patient continues to have fevers or evidence of infection he may need a thoracentesis to further evaluate for parapneumonic effusion or empyema. Patient is stable for downgraded to telemetry status. Documented By: Dionisio Reyna, Consults & Procedures Consultants: Dr Reyna, ICU Procedures: CT Abdomen/Pelvis 08/22/16 Data Medications: Current Inpatient Medications Medications (Trade) Dose Ordered Sig/Idris Route Start Time Stop Time Status Last Admin Dose Admin Acetaminophen (Tylenol Tab) 650 mg Q4H PRN PO 08/19/16 19:00 09/18/16 18:59 08/21/16 21:20 650 MG Al Hydrox/Mg Hydrox/Simethicone (Maalox Max Susp) 30 ml QID PRN PO 08/19/16 19:15 5/9/17 19:14 Aripiprazole (Abilify Tab) 5 mg DAILY PO 08/20/16 09:00 09/19/16 08:59 08/21/16 08:12 5 MG Aspirin (Ecotrin Tab) 81 mg DAILY PO 08/20/16 09:00 09/19/16 08:59 08/21/16 08:11 81 MG Docusate Sodium (coLACE CAP) 100 mg BID PO 08/19/16 21:00 09/18/16 20:59 08/21/16 21:16 100 MG Loperamide HCl (Imodium Cap) 4 mg Q8H PRN PO 08/19/16 19:15 09/18/16 19:14 Lorazepam (Ativan Tab) 1 mg BID PO 08/19/16 21:00 09/18/16 20:59 08/21/16 21:19 1 MG Magnesium Hydroxide (Milk Of Magnesia Susp) 30 ml QID PRN PO 08/19/16 19:15 09/18/16 19:14 Multivitamins (Multivitamin Tab) 1 tab DAILY PO 08/20/16 09:00 09/19/16 08:59 08/21/16 08:13 1 TAB Enteral Nutritional Formula (Boost) 1 can DAILY PO 08/20/16 09:00 09/19/16 08:59 08/21/16 08:10 1 CAN Pantoprazole Sodium (Protonix Tab) 40 mg BID PO 08/19/16 21:00 09/18/16 20:59 08/21/16 21:15 40 MG Trazodone HCl (Desyrel Tab) 50 mg HS PO 08/19/16 21:00 09/18/16 20:59 08/21/16 21:14 50 MG Benztropine Mesylate (Cogentin Tab) 1 mg TID PO 08/19/16 21:00 09/18/16 20:59 08/21/16 21:14 1 MG Miscellaneous Information (Order Awaiting Action) 1 ea QS N/A 08/20/16 00:00 09/19/16 00:00 Lamotrigine (Lamictal Tab) 200 mg BID PO 08/19/16 21:00 09/18/16 20:59 08/21/16 21:16 200 MG Polyethylene 17 gm 17 gm DAILY PO 4/10/17 09:00 09/19/16 08:59 08/21/16 08:12 17 GM Piperacillin Sod/ Tazobactam Sod/ Dextrose (Zosyn Iv/D5 100ml) 115 ml @ 28 mls/hr Q8H IV 08/19/16 22:00 08/29/16 21:59 08/22/16 05:27 28 MLS/HR Piperacillin Sod/ Tazobactam Sod (Consult) 1 ea UD PRN N/A 08/19/16 21:30 09/18/16 21:29 Heparin Sodium (Porcine) (Heparin Sq 5000 Unit/0.5ml) 5,000 unit Q8H SQ 08/21/16 06:00 09/20/16 05:59 08/22/16 05:29 5,000 UNIT Morphine Sulfate (MoRPHine SULFATE INJ) 2 mg Q4 PRN IV 08/21/16 11:15 09/04/16 11:14 08/21/16 19:35 2 MG Vancomycin HCl 1 ea 1 ea UD PRN N/A 08/21/16 11:45 09/20/16 11:44 Vancomycin HCl 700 mg/Sodium Chloride 264 ml @ 125 mls/hr Q24H IV 08/22/16 12:00 08/28/16 23:59 Levofloxacin/Prmx (Levaquin / D5W/ Premixed D5W) 150 ml @ 100 mls/hr Q24H IV 08/21/16 19:00 08/28/16 18:59 08/21/16 19:36 100 MLS/HR Nitroglycerin (Nitroglycerin 2% Oint) 1 inch Q6H EXT 08/21/16 19:30 09/20/16 19:29 08/22/16 01:20 1 INCH Levalbuterol 1.25 mg 1.25 mg Q6R INH 08/21/16 21:00 09/20/16 20:59 08/22/16 02:00 1.25 MG Methylprednisolone Sodium Succinate/ Syringe (Solu-Medrol IV/ Syringe) 2 ml @ 1.5 mls/min Q6@0400,1000,1600,2200 IV 08/21/16 22:00 09/20/16 21:59 08/22/16 03:14 1.5 MLS/MIN I & O: 24-Hour Column 08/22/16 08:00 Intake Total 3072 ml Output Total 3700 ml Balance -628 ml Vital Signs: Date Time Temp Pulse Resp B/P Pulse Ox O2 Delivery O2 Flow Rate FiO2 08/22/16 06:00 105 26 116/76 99 Nasal Cannula 2.0 08/22/16 04:00 36.8 78 13 103/57 100 Nasal Cannula 2.0 08/22/16 04:00 99 Venturi Mask 50 08/22/16 02:00 85 22 101/60 100 08/22/16 02:00 91 20 100 Venturi Mask 50 08/22/16 01:15 99 32 106/65 99 08/22/16 00:01 94 26 120/70 100 08/21/16 23:59 99 Venturi Mask 50 08/21/16 23:02 36.5 98 21 115/55 97 08/21/16 22:00 104 19 95/60 96 08/21/16 21:07 116 24 112/60 97 Venturi Mask 15.0 08/21/16 20:00 131 27 114/71 96 Venturi Mask 15.0 50 08/21/16 20:00 99 Venturi Mask 50 08/21/16 19:30 135 26 96 Venturi Mask 50 08/21/16 19:22 129 40 134/82 97 Venturi Mask 15.0 08/21/16 19:20 38.2 135 34 172/95 97 Venturi Mask 15.0 08/21/16 18:11 38.0 118 24 158/84 97 Mechanical Ventilator 15.0 50 08/21/16 16:00 Venturi Mask 15.0 50 08/21/16 14:14 37.0 08/21/16 12:00 93 Venturi Mask 15.0 50 08/21/16 11:48 37.1 08/21/16 10:03 37.1 08/21/16 08:00 95 Venturi Mask 15.0 50 08/21/16 07:33 36.9 109 24 117/71 90 Venturi Mask 15.0 107 Laboratory Results: Last 24 Hours Test 08/21/16 19:24 08/22/16 00:36 08/22/16 04:38 08/22/16 07:11 White Blood Count 9.77 K/uL 5.43 K/uL Red Blood Count 4.99 M/uL 4.76 M/uL Hemoglobin 14.7 g/dL 14.3 g/dL Hematocrit 43.7 % 41.2 % Mean Corpuscular Volume 87.6 fL 86.6 fL Mean Corpuscular Hemoglobin 29.5 pg 30.0 pg Mean Corpuscular Hemoglobin Concent 33.6 g/dl 34.7 g/dl Platelet Count 139 K/uL 123 K/uL Mean Platelet Volume 9.8 fL 10.0 fL RDW Standard Deviation 46.5 fL 45.4 fL RDW Coefficient of Variation 14.5 % 14.2 % Neutrophils % (Manual) 80.2 % Lymphocytes % (Manual) 13.8 % Monocytes % (Manual) 6.0 % Neutrophils # (Manual) 7.84 K/uL Total Absolute Neutrophils 7.84 K/uL Lymphocytes # (Manual) 1.35 K/uL Total Absolute Lymphocytes 1.35 K/uL Monocytes # (Manual) 0.59 K/uL Red Blood Cell Morphology Unremarkable Prothrombin Time 13.3 SECONDS Prothromb Time International Ratio 1.2 Activated Partial Thromboplast Time 29.7 SECONDS Partial Thromboplastin Ratio 1.1 Sodium Level 142 mmol/L 141 mmol/L Potassium Level 3.6 mmol/L 3.5 mmol/L Chloride Level 106 mmol/L 104 mmol/L Carbon Dioxide Level 20 mmol/L 29 mmol/L Anion Gap 16.0 mmol/L 8.0 mmol/L Blood Urea Nitrogen 18 mg/dl 20 mg/dl Creatinine 1.50 mg/dl 1.40 mg/dl Est Creatinine Clear Calc Drug Dose 32.3 ml/min 34.6 ml/min Estimated GFR () 58.2 63.3 Estimated GFR (Non- 50.2 54.6 BUN/Creatinine Ratio 11.7 14.1 Random Glucose 119 mg/dl 173 mg/dl Lactic Acid Level 8.2 mmol/L 1.0 mmol/L Calcium Level 7.8 mg/dl 8.0 mg/dl Phosphorus Level 2.6 mg/dl Magnesium Level 2.6 mg/dl Total Bilirubin 0.6 mg/dl Aspartate Amino Transf (AST/SGOT) 76 U/L Alanine Aminotransferase (ALT/SGPT) 86 U/L Alkaline Phosphatase 143 U/L Troponin I 0.172 ng/ml 0.151 ng/ml Total Protein 6.7 gm/dl Albumin 2.6 gm/dl Globulin 4.1 gm/dl Albumin/Globulin Ratio 0.6 Lipase 492 U/L Procalcitonin 0.55 ng/mL Thyroid Stimulating Hormone (TSH) 2.010 uIu/ml Free Thyroxine 1.30 ng/dl Random Cortisol 40.66 mcg/dl Resident Tracking Resident Involvement: Resident Care Provided Care Provided: Adult Hospital Medicine (ICU)
[2016-08-22] MEDS ORDERED: PERFLUTREN LIPID MICROSPHERE (DEFINITY) IV ONE (07:57)
[2016-08-22] MEDS: [UNRECOGNIZED DRUG - OTHER] SCH ×3 (08:00→22:41)
[2016-08-22 08:08] LABS: MAGNESIUM 3.3 mg/dl (1.8-2.4); PHOSPHORUS 2.5 mg/dl (2.5-4.9)
[2016-08-22] MEDS: BOOST VANILLA PO SCH ×2 (08:24)
[2016-08-22] MEDS: LORAZEPAM 1 MG TAB PO SCH ×2 (08:24→20:03)
[2016-08-22] MEDS: PANTOprazole SOD 40 MG TAB PO SCH ×2 (08:25→20:02)
[2016-08-22] MEDS: DOCUSATE SODIUM 100 MG CAP PO SCH ×2 (08:25→20:01)
[2016-08-22] MEDS: ASPIRIN 81 MG ECTAB PO SCH (08:25)
[2016-08-22] MEDS: MULTIVITAMIN TAB PO SCH (08:25)
[2016-08-22] MEDS: BENZTROPINE MESYLATE 1 MG TAB PO SCH ×3 (08:26→20:01)
[2016-08-22] MEDS: POLYETHYLENE (MIRALAX) 17 GM PACK PO SCH (08:26)
[2016-08-22] MEDS: ARIPIprazole TAB 5 MG TAB PO SCH (08:26)
--- NOTE | 2016-08-22 10:28 | ECHOCARDIOGRAM REPORT ---
*NOTICE TO RECEIVING DEMOCRAT AGENCY This information is strictly Confidential and protected under [place] law. [place] law prohibits you from making any further disclosure of this information unless further disclosure is expressly permitted by the written consent of the person to whom it pertains or is authorized by law. A general authorization for the release of medical or other information is not sufficient for this purpose. Hospital accepts no responsibility if the information is made available to any other person, INCLUDING THE PATIENT. Interpretation Summary * Name: MARLENI FORD Study Date: 08/22/2016 07:29 AM BP: 116/76 mmHg * Patient Location: [facility]\S\N283\S\1 HR: 105 * : 1955 (M/d/yyyy) Gender: Male Height: 57 in * Age: 60 yrs Ethnicity: [place] Weight: 97 lb * Ordering Physician: Teresa Real * Performed By: Melissa Rubio RDCS * * Reason For Study: Congestive heart failure * BSA: 1.3 m2 * -- Conclusions -- * Normal LV chamber size and wall thickness. * Hyperdynamic LV systolic function, EF >70%. * No segmental left ventricular wall motion abnormalities are noted. * Grade I diastolic dysfunction. * No significant valvular pathology. * Atrial septal aneurysm incidentally noted, with small, hemodynamically insigificant shunt. Consider daily aspirin for stroke prophylaxis. Closure not currently indicated. * PASP of 24 mmHg assuming a RA pressure of 3 mmHg. Procedure Details * A complete two-dimensional transthoracic echocardiogram was performed (2D, M-mode, Doppler and color flow Doppler). * A contrast injection of Definity was performed to improve assessment of LV function. * Contrast was injected into an intravenous site in the left arm. * One vial of Definity ultrasound contrast was diluted in normal saline to a total volume of 10 ml. A total of '2' ml of solution was administered during imaging. * Lot # [id number] of Definity utilized for procedure. * Expiration date 1 JUN 30. * The attending nurse who injected the contrast agent was Kami Chirinos RN. Left Ventricle * The left ventricle is normal in size. * There is normal left ventricular wall thickness. * Ejection Fraction = >70 %. * The left ventricle is hyperdynamic. * No segmental left ventricular wall motion abnormalities are noted. * The left ventricular wall motion is normal. Right Ventricle * The right ventricular cavity size is normal (basal dimension <4.2 cm in right ventricular apical 4-chamber view). * The right ventricular systolic function is normal. Atria * The left atrial size is normal. * Right atrial size is normal. * Atrial septal aneurysm incidentally noted, with small, hemodynamically insigificant shunt. Consider daily aspirin for stroke prophylaxis. Closure not currently indicated. Mitral Valve * The mitral valve is normal in structure and function. Tricuspid Valve * The tricuspid valve is normal in structure and function. Aortic Valve * The aortic valve is not well visualized. * No hemodynamically significant valvular aortic stenosis. * There is no significant aortic regurgitation. Pulmonic Valve * The pulmonary valve is not well seen, but the Doppler examination is normal without significant regurgitation or stenosis. Great Vessels * The aortic root is normal size. Pericardium/Pleural * There is no pericardial effusion. Left Ventricular Diastolic Function * Grade I diastolic dysfunction, (abnormal relaxation pattern). MMode 2D Measurements and Calculations IVSd 0.72 cm LVIDd 3.7 cm LVIDs 2.6 cm LVPWd 0.59 cm IVS/LVPW 1.2 FS 29.4 % EDV(Teich) 57.8 ml ESV(Teich) 24.7 ml EF(Teich) 57.2 % EDV(cubed) 50.3 ml ESV(cubed) 17.7 ml EF(cubed) 64.9 % LV mass(C)d 62.6 grams LV mass(C)dI 47.4 grams/m\S\2 CO(Teich) 3.7 l/min CI(Teich) 2.8 l/min/m\S\2 SV(Teich) 33.1 ml SI(Teich) 25.0 ml/m\S\2 CO(cubed) 3.6 l/min CI(cubed) 2.7 l/min/m\S\2 SV(cubed) 32.7 ml SI(cubed) 24.7 ml/m\S\2 Ao root diam 2.8 cm Ao root area 6.0 cm\S\2 ACS 1.4 cm LVOT diam 2.0 cm LVOT area 3.0 cm\S\2 LVAd ap4 14.9 cm\S\2 LVLd ap4 5.5 cm EDV(MOD-sp4) 33.3 ml LVAs ap4 9.6 cm\S\2 LVLs ap4 5.2 cm ESV(MOD-sp4) 14.9 ml EF(MOD-sp4) 55.3 % LVAd ap2 17.4 cm\S\2 LVLd ap2 6.6 cm EDV(MOD-sp2) 36.9 ml LVAs ap2 10.0 cm\S\2 LVLs ap2 5.2 cm ESV(MOD-sp2) 15.9 ml EF(MOD-sp2) 56.9 % CO(MOD-sp4) 2.0 l/min CI(MOD-sp4) 1.5 l/min/m\S\2 SV(MOD-sp4) 18.4 ml SI(MOD-sp4) 13.9 ml/m\S\2 CO(MOD-sp2) 2.3 l/min CI(MOD-sp2) 1.8 l/min/m\S\2 SV(MOD-sp2) 21.0 ml SI(MOD-sp2) 15.9 ml/m\S\2 Doppler Measurements and Calculations MV E max la 66.9 cm/sec MV A max la 88.3 cm/sec MV E/A 0.76 Ao V2 max 152.0 cm/sec Ao max PG 9.2 mmHg Ao max PG (full) 6.1 mmHg DISHA(V,A) 1.8 cm\S\2 DISHA(V,D) 1.8 cm\S\2 LV V1 max PG 3.1 mmHg LV V1 max 88.3 cm/sec PA V2 max 93.7 cm/sec PA max PG 3.5 mmHg PA acc slope 806.9 cm/sec\S\2 PA acc time 0.07 sec TR max la 228.0 cm/sec PA pr(Accel) 45.7 mmHg
[2016-08-22] MEDS: LACTULOSE SYRUP 30 GM/45 ML UDP PO SCH ×3 (11:36→20:01)
[2016-08-22] MEDS: VANCOMYCIN INJ 700 MG in SODIUM CHLORIDE 0.9% 250ML 250 ML IV SCH (11:37)
[2016-08-22] MEDS: MoRPHine SULFATE 2 MG/ML CARP IV PRN (12:05)
[2016-08-22] MEDS: POTASSIUM CHLORIDE 10 MEQ TABCR PO SCH ×2 (14:59→18:27)
--- NOTE | 2016-08-22 18:21 | Progress Note ---
Internal Med Progress Note Date of Service: Aug 22, 2016. Provider Documentation: comfortable once a while shaky when anxious afebrile hemodynamics stable less oxygen requirements Exam: General-alert and awake . Non verbal ENT-normal hearing Neck-no neck masses Lungs-cta b/l no wheezing or crackles Heart-s1 and s2 heard regular rate and rhythm no murmurs Abdomen-soft bowel sounds present non tender no distension Extremities-no edema no erythema Neuro-alert and awake moves extremities ASSESSMENT & PLAN: Sepsis with Metabolic Encephalopathy Secondary to urinary tract infection. CXr b/l Pneumonia? proteus in urine On iv Zosyn and Vancomycin continue same ID on board hemodynamics stable currently will monitor Resp distress mostly from volume overload from iv fluids for sepsis required high oxygen received lasix echo grade 1 diastolic dysfunction-otherwise unremarkable currently stable Mental retardation. He has been in a [facility]. somewhat restless on iv morphine prn will monitor Seizure disorder. He has not had any seizure for many many years. on Lamictal will monitor Hypothyroidism on Synthroid Dysphagia, On pureed diet and medications should be given with applesauce and/or yogurt. He also takes Boost. Gastrointestinal prophylaxis with Protonix. Deep venous thrombosis prophylaxis Heparin Code status. He will be a full code. DISPOSITION transfer to [facility] to be determined Vital Signs: Date Time Temp Pulse Resp B/P Pulse Ox O2 Delivery O2 Flow Rate FiO2 08/22/16 16:00 36.7 118 26 125/75 91 Nasal Cannula 2.0 08/22/16 16:00 Nasal Cannula 2.0 08/22/16 14:36 102 20 121/76 94 Nasal Cannula 4.0 08/22/16 12:00 36.6 124 27 109/64 91 Nasal Cannula 4.0 08/22/16 12:00 Nasal Cannula 4.0 08/22/16 10:02 100 23 127/85 91 Room Air 08/22/16 09:01 109 24 118/50 92 Room Air 08/22/16 08:02 36.3 115 37 115/67 93 Room Air 08/22/16 08:00 Venturi Mask 50 08/22/16 08:00 Room Air 08/22/16 07:08 83 24 91 Nasal Cannula 3.0 08/22/16 06:00 105 26 116/76 99 Nasal Cannula 2.0 08/22/16 04:00 36.8 78 13 103/57 100 Nasal Cannula 2.0 08/22/16 04:00 99 Venturi Mask 50 08/22/16 02:00 85 22 101/60 100 08/22/16 02:00 91 20 100 Venturi Mask 50 08/22/16 01:15 99 32 106/65 99 08/22/16 00:01 94 26 120/70 100 08/21/16 23:59 99 Venturi Mask 50 08/21/16 23:02 36.5 98 21 115/55 97 08/21/16 22:00 104 19 95/60 96 08/21/16 21:07 116 24 112/60 97 Venturi Mask 15.0 08/21/16 20:00 131 27 114/71 96 Venturi Mask 15.0 50 08/21/16 20:00 99 Venturi Mask 50 08/21/16 19:30 135 26 96 Venturi Mask 50 08/21/16 19:22 129 40 134/82 97 Venturi Mask 15.0 08/21/16 19:20 38.2 135 34 172/95 97 Venturi Mask 15.0 Lab Results: Results Past 24 Hours Test 08/21/16 19:24 08/22/16 00:36 08/22/16 04:38 08/22/16 12:41 Range/Units White Blood Count 9.77 5.43 4.8-10.8 K/uL Red Blood Count 4.99 4.76 4.7-6.1 M/uL Hemoglobin 14.7 14.3 14.0-18.0 g/dL Hematocrit 43.7 41.2 42-52 % Mean Corpuscular Volume 87.6 86.6 80-100 fL Mean Corpuscular Hemoglobin 29.5 30.0 25-34 pg Mean Corpuscular Hemoglobin Concent 33.6 34.7 32-36 g/dl Platelet Count 139 123 130-400 K/uL Mean Platelet Volume 9.8 10.0 7.4-10.4 fL RDW Standard Deviation 46.5 45.4 36.4-46.3 fL RDW Coefficient of Variation 14.5 14.2 11.5-14.5 % Neutrophils % (Manual) 80.2 % Lymphocytes % (Manual) 13.8 % Monocytes % (Manual) 6.0 % Neutrophils # (Manual) 7.84 1.4-6.5 K/uL Total Absolute Neutrophils 7.84 1.4-6.5 K/uL Lymphocytes # (Manual) 1.35 1.2-3.4 K/uL Total Absolute Lymphocytes 1.35 1.2-3.4 K/uL Monocytes # (Manual) 0.59 0.11-0.59 K/uL Red Blood Cell Morphology Unremarkable Prothrombin Time 13.3 9.0-12.0 SECONDS Prothromb Time International Ratio 1.2 0.9-1.1 Activated Partial Thromboplast Time 29.7 21.0-31.0 SECONDS Partial Thromboplastin Ratio 1.1 Sodium Level 142 141 136-145 mmol/L Potassium Level 3.6 3.5 3.5-5.1 mmol/L Chloride Level 106 104 98-107 mmol/L Carbon Dioxide Level 20 29 21-32 mmol/L Anion Gap 16.0 8.0 3-11 mmol/L Blood Urea Nitrogen 18 20 7-18 mg/dl Creatinine 1.50 1.40 0.60-1.40 mg/dl Est Creatinine Clear Calc Drug Dose 32.3 34.6 ml/min Estimated GFR () 58.2 63.3 Estimated GFR (Non- 50.2 54.6 BUN/Creatinine Ratio 11.7 14.1 10-20 Random Glucose 119 173 70-99 mg/dl Lactic Acid Level 8.2 1.0 0.4-2.0 mmol/L Calcium Level 7.8 8.0 8.5-10.1 mg/dl Phosphorus Level 2.6 2.5 2.5-4.9 mg/dl Magnesium Level 2.6 3.3 1.8-2.4 mg/dl Total Bilirubin 0.6 0.2-1 mg/dl Aspartate Amino Transf (AST/SGOT) 76 15-37 U/L Alanine Aminotransferase (ALT/SGPT) 86 12-78 U/L Alkaline Phosphatase 143 45-117 U/L Troponin I 0.172 0.151 0.072 0-0.045 ng/ml Total Protein 6.7 6.4-8.2 gm/dl Albumin 2.6 3.4-5.0 gm/dl Globulin 4.1 2.5-4.0 gm/dl Albumin/Globulin Ratio 0.6 0.9-2 Lipase 492 73-393 U/L Procalcitonin 0.55 0-0.5 ng/mL Thyroid Stimulating Hormone (TSH) 2.010 0.300-4.500 uIu/ml Free Thyroxine 1.30 0.80-1.60 ng/dl Random Cortisol 40.66 mcg/dl
[2016-08-22] MEDS: LEVOFLOXACIN / D5W 750 MG in PREMIXED IN D5W 150 ML IV SCH (18:27)
[2016-08-22] MEDS: TRAZODONE HCL 50 MG TAB PO SCH (20:02)
[2016-08-23] VITALS (13 sets, daily range): BP systolic 115–167; BP diastolic 74–93; PULSE 88–135; TEMP 36.4–36.7; O2SAT 91–97
[2016-08-23] MEDS: NITROGLYCERIN OINT 2% 1GM PACKET EXT SCH (01:34)
[2016-08-23] MEDS: LEVALBUTEROL 1.25MG/0.5ML NEB INH SCH ×3 (01:51→14:33)
[2016-08-23] MEDS: MoRPHine SULFATE 2 MG/ML CARP IV PRN ×2 (04:25→14:26)
[2016-08-23 06:08] LABS: BASO % 0.1 %; BASO ABS # 0.01 K/uL (0-0.2); COMPLETE YES; HEMATOCRIT 35.8 % (42-52); IG% 0.5 %; LYMPH % 3.9 %; LYMPH ABS # 0.46 K/uL (1.2-3.4); MEAN CELL VOLUME 85.6 fL (80-100); MEAN CORPUSCULAR HEMOGLOBIN 28.9 pg (25-34); MEAN CORPUSCULAR HGB CONC 33.8 g/dl (32-36); MEAN PLATELET VOLUME 10.3 fL (7.4-10.4); MONO % 9.7 %; NEUT % 85.8 %; PLATELET COUNT 164 K/uL (130-400); RED BLOOD COUNT 4.18 M/uL (4.7-6.1); WHITE BLOOD COUNT 11.94 K/uL (4.8-10.8)
[2016-08-23] MEDS: PIPERACILL/TAZOBAC IV 3.375 GM in DEXTROSE 5% 100ML 100 ML IV SCH ×2 (06:30→14:14)
[2016-08-23] MEDS: HEPARIN SOD 5000 UNIT/0.5 ML CARP SQ SCH ×3 (06:32→20:16)
[2016-08-23 06:51] LABS: BUN/CREATININE RATIO 19.8 (10-20); CALCIUM 8.5 mg/dl (8.5-10.1); CREATININE 1.2 mg/dl (0.60-1.40); MAGNESIUM 2.9 mg/dl (1.8-2.4); POTASSIUM 4.4 mmol/L (3.5-5.1)
[2016-08-23] MEDS: [UNRECOGNIZED DRUG - OTHER] SCH ×3 (08:53→22:45)
[2016-08-23] MEDS ORDERED: ASPIRIN 81 MG CHEW PO SCH (09:00)
[2016-08-23] MEDS ORDERED: LACTULOSE SYRUP 30 GM/45 ML UDP PO PRN (09:00)
[2016-08-23] MEDS: BOOST VANILLA PO SCH ×2 (09:00)
[2016-08-23] MEDS: POLYETHYLENE (MIRALAX) 17 GM PACK PO SCH (09:06)
[2016-08-23] MEDS: ASPIRIN 81 MG ECTAB PO SCH (09:06)
[2016-08-23] MEDS: DOCUSATE SODIUM 100 MG CAP PO SCH ×2 (09:06→20:11)
[2016-08-23] MEDS: BENZTROPINE MESYLATE 1 MG TAB PO SCH ×3 (09:06→20:11)
[2016-08-23] MEDS: LORAZEPAM 1 MG TAB PO SCH ×2 (09:06→19:47)
[2016-08-23] MEDS: ARIPIprazole TAB 5 MG TAB PO SCH (09:07)
[2016-08-23] MEDS: MULTIVITAMIN TAB PO SCH (09:07)
[2016-08-23] MEDS: PANTOprazole SOD 40 MG TAB PO SCH ×2 (09:08→20:15)
[2016-08-23] MEDS: VANCOMYCIN INJ 700 MG in SODIUM CHLORIDE 0.9% 250ML 250 ML IV SCH (11:20)
[2016-08-23] MEDS ORDERED: METOPROLOL TARTRATE 25 MG TAB PO ONE (16:30)
[2016-08-23] MEDS ORDERED: LEVALBUTEROL 1.25MG/0.5ML NEB INH PRN (16:30)
--- NOTE | 2016-08-23 16:49 | Progress Note ---
Internal Med Progress Note Date of Service: Aug 23, 2016. Provider Documentation: seems comfortable eating good patient will have severe shaking whenever jhe is anxious but responding well to morphine afebrile Exam: General-alert and awake . Non verbal ENT-normal hearing Neck-no neck masses Lungs-cta b/l no wheezing or crackles Heart-s1 and s2 heard regular rate and rhythm no murmurs Abdomen-soft bowel sounds present non tender no distension Extremities-no edema no erythema Neuro-alert and awake moves extremities ASSESSMENT & PLAN: Sepsis with Metabolic Encephalopathy Secondary to urinary tract infection. CXr b/l Pneumonia? proteus in urine On iv Zosyn and Vancomycin and Levaquin continue same ID on board hemodynamics stable currently cx no growth so far will stop vancomycin will monitor Resp distress mostly from volume overload from iv fluids for sepsis required high oxygen received lasix echo grade 1 diastolic dysfunction-otherwise unremarkable currently stable on 2lts will f/u cxr in am Hypernatremia to encourage to drink water will f/u labs 150 to 147 Mental retardation. [facility] somewhat restless on iv morphine prn will monitor Seizure disorder. He has not had any seizure for many many years. on Lamictal will monitor Hypothyroidism on Synthroid Dysphagia, On pureed diet and medications should be given with applesauce and/or yogurt. He also takes Boost. Gastrointestinal prophylaxis with Protonix. Deep venous thrombosis prophylaxis Heparin Code status. He will be a full code. DISPOSITION transferred to [facility] to be determined Vital Signs: Date Time Temp Pulse Resp B/P Pulse Ox O2 Delivery O2 Flow Rate FiO2 08/23/16 16:00 92 Nasal Cannula 2.0 08/23/16 15:14 36.7 118 22 137/81 92 2.0 08/23/16 13:45 88 20 Nasal Cannula 2.0 08/23/16 13:34 36.6 133 23 91 2.0 08/23/16 12:33 36.6 133 23 125/93 91 Nasal Cannula 2.0 08/23/16 12:00 Nasal Cannula 2.0 08/23/16 08:00 36.4 120 26 115/74 96 Nasal Cannula 2.0 08/23/16 08:00 Nasal Cannula 2.0 08/23/16 07:15 113 20 96 Nasal Cannula 2.0 08/23/16 04:45 36.7 116 24 120/77 96 Nasal Cannula 2.0 08/23/16 04:00 Nasal Cannula 2.0 08/23/16 01:51 109 20 95 Nasal Cannula 2.0 08/23/16 00:01 Nasal Cannula 2.0 08/22/16 23:56 36.7 109 23 116/75 93 Nasal Cannula 2.0 08/22/16 20:00 Nasal Cannula 2.0 08/22/16 19:55 120 22 90 Nasal Cannula 2.0 08/22/16 19:48 36.7 139 22 159/88 92 Nasal Cannula 2.0 Lab Results: Results Past 24 Hours Test 08/23/16 05:24 08/23/16 16:08 Range/Units White Blood Count 11.94 4.8-10.8 K/uL Red Blood Count 4.18 4.7-6.1 M/uL Hemoglobin 12.1 14.0-18.0 g/dL Hematocrit 35.8 42-52 % Mean Corpuscular Volume 85.6 80-100 fL Mean Corpuscular Hemoglobin 28.9 25-34 pg Mean Corpuscular Hemoglobin Concent 33.8 32-36 g/dl Platelet Count 164 130-400 K/uL Mean Platelet Volume 10.3 7.4-10.4 fL Neutrophils (%) (Auto) 85.8 % Lymphocytes (%) (Auto) 3.9 % Monocytes (%) (Auto) 9.7 % Eosinophils (%) (Auto) 0.0 % Basophils (%) (Auto) 0.1 % Neutrophils # (Auto) 10.25 1.4-6.5 K/uL Lymphocytes # (Auto) 0.46 1.2-3.4 K/uL Monocytes # (Auto) 1.16 0.11-0.59 K/uL Eosinophils # (Auto) 0.00 0-0.5 K/uL Basophils # (Auto) 0.01 0-0.2 K/uL RDW Standard Deviation 44.8 36.4-46.3 fL RDW Coefficient of Variation 14.4 11.5-14.5 % Immature Granulocyte % (Auto) 0.5 % Immature Granulocyte # (Auto) 0.06 0.00-0.02 K/uL Sodium Level 150 147 136-145 mmol/L Potassium Level 4.4 3.5-5.1 mmol/L Chloride Level 117 98-107 mmol/L Carbon Dioxide Level 27 21-32 mmol/L Anion Gap 6.0 3-11 mmol/L Blood Urea Nitrogen 24 7-18 mg/dl Creatinine 1.20 0.60-1.40 mg/dl Est Creatinine Clear Calc Drug Dose 39.2 ml/min Estimated GFR () 76.3 Estimated GFR (Non- 65.8 BUN/Creatinine Ratio 19.8 10-20 Random Glucose 129 70-99 mg/dl Calcium Level 8.5 8.5-10.1 mg/dl Magnesium Level 2.9 1.8-2.4 mg/dl
[2016-08-23] MEDS: LEVOFLOXACIN / D5W 750 MG in PREMIXED IN D5W 150 ML IV SCH (20:10)
[2016-08-23] MEDS: TRAZODONE HCL 50 MG TAB PO SCH (20:11)
[2016-08-23] MEDS: METOPROLOL TARTRATE 25 MG TAB PO SCH (20:12)
[2016-08-24] MEDS: MoRPHine SULFATE 2 MG/ML CARP IV PRN ×2 (03:08→08:42)
[2016-08-24 03:13] VITALS: BP 127/83; PULSE 111; TEMP 36.3; O2SAT 94
[2016-08-24] MEDS: HEPARIN SOD 5000 UNIT/0.5 ML CARP SQ SCH ×3 (05:55→21:09)
[2016-08-24 06:55] LABS: BASO % 0.1 %; BASO ABS # 0.01 K/uL (0-0.2); COMPLETE YES; HEMATOCRIT 37.3 % (42-52); LYMPH % 7.5 %; LYMPH ABS # 0.91 K/uL (1.2-3.4); MEAN CELL VOLUME 86.5 fL (80-100); MEAN CORPUSCULAR HGB CONC 33.5 g/dl (32-36); MEAN PLATELET VOLUME 9.8 fL (7.4-10.4); NEUT % 77.4 %; PLATELET COUNT 226 K/uL (130-400); RED BLOOD COUNT 4.31 M/uL (4.7-6.1)
[2016-08-24 07:31] LABS: BUN/CREATININE RATIO 17.3 (10-20); CALCIUM 8.9 mg/dl (8.5-10.1); CREATININE 1.3 mg/dl (0.60-1.40); MAGNESIUM 2.9 mg/dl (1.8-2.4); POTASSIUM 4.7 mmol/L (3.5-5.1)
--- NOTE | 2016-08-24 07:41 | DIAGNOSTIC IMAGING REPORT ---
CHEST ONE VIEW PORTABLE CLINICAL HISTORY: congestion/infiltrate pneumonia COMPARISON STUDY: 08/21/2016 FINDINGS: Mild improvement of the right perihilar and infrahilar infiltrative process. Improving left basilar infiltrate. Diaphragms are smooth. IMPRESSION: Mild improvement of the patient's bilateral parenchymal infiltrative change. Electronically signed by: Robby Peck M.D. 08/24/2016 7:39 AM Dictated Date/Time: 08/24/2016 7:37 AM
[2016-08-24 08:00] VITALS: BP 152/76; PULSE 117; TEMP 36.9; O2SAT 94
[2016-08-24] MEDS: [UNRECOGNIZED DRUG - OTHER] SCH ×2 (08:00→16:00)
[2016-08-24] MEDS: LORAZEPAM 1 MG TAB PO SCH ×2 (08:03→21:02)
[2016-08-24] MEDS: ARIPIprazole TAB 5 MG TAB PO SCH (08:03)
[2016-08-24] MEDS: BOOST VANILLA PO SCH ×2 (08:04)
[2016-08-24] MEDS: BENZTROPINE MESYLATE 1 MG TAB PO SCH ×3 (08:04→21:03)
[2016-08-24] MEDS: ASPIRIN 81 MG ECTAB PO SCH (08:05)
[2016-08-24] MEDS: DOCUSATE SODIUM 100 MG CAP PO SCH ×2 (08:05→21:03)
[2016-08-24] MEDS: POLYETHYLENE (MIRALAX) 17 GM PACK PO SCH (08:07)
[2016-08-24] MEDS: PANTOprazole SOD 40 MG TAB PO SCH ×2 (08:07→21:03)
[2016-08-24] MEDS: METOPROLOL TARTRATE 25 MG TAB PO SCH ×2 (08:07→21:07)
[2016-08-24] MEDS: MULTIVITAMIN TAB PO SCH (08:07)
[2016-08-24] MEDS ORDERED: VANCOMYCIN TROUGH SCH (11:30)
[2016-08-24 11:34] VITALS: BP 138/78; PULSE 109; TEMP 36.8; O2SAT 94
--- NOTE | 2016-08-24 15:48 | Pharmacy Progress Note ---
Automatic IV to PO Conversion Date of Service: Aug 24, 2016. [facility] identified patient as an appropriate candidate for automatic intravenous to oral conversion. Eligible medication: Levaquin 750 mg IV every 24 hours. Day # 4 of IV therapy. Subjective The patient is a 60 year old male admitted on Aug 19, 2016 at 19:01 for Sepsis Due To Urinary Tract Infection. Objective Vital Signs: Vital Signs Past 12 Hours Date Time Temp Pulse Resp B/P Pulse Ox O2 Delivery O2 Flow Rate FiO2 08/24/16 14:00 Nasal Cannula 2.0 08/24/16 11:34 36.8 109 16 138/78 94 2.0 08/24/16 08:00 36.9 117 20 152/76 94 Nasal Cannula 2.0 08/24/16 08:00 Nasal Cannula 2.0 08/24/16 04:07 Nasal Cannula 2.0 White Blood Count: Test 08/24/16 06:15 White Blood Count 12.10 K/uL (4.8-10.8) Red Blood Count 4.31 M/uL (4.7-6.1) Hemoglobin 12.5 g/dL (14.0-18.0) Hematocrit 37.3 % (42-52) Mean Corpuscular Volume 86.5 fL (80-100) Mean Corpuscular Hemoglobin 29.0 pg (25-34) Mean Corpuscular Hemoglobin Concent 33.5 g/dl (32-36) Platelet Count 226 K/uL (130-400) Mean Platelet Volume 9.8 fL (7.4-10.4) Neutrophils (%) (Auto) 77.4 % Lymphocytes (%) (Auto) 7.5 % Monocytes (%) (Auto) 14.0 % Eosinophils (%) (Auto) 0.0 % Basophils (%) (Auto) 0.1 % Neutrophils # (Auto) 9.37 K/uL (1.4-6.5) Lymphocytes # (Auto) 0.91 K/uL (1.2-3.4) Monocytes # (Auto) 1.69 K/uL (0.11-0.59) Eosinophils # (Auto) 0.00 K/uL (0-0.5) Basophils # (Auto) 0.01 K/uL (0-0.2) Height (Feet): 4 Height (Inches): 9.00 Weight (Kilograms): 41.800 Type of Diet: Regular Microbiology Item Value Date Time MRSA DNA Surveillance Screen - Final Complete 08/21/16 1630 Nasal Specimen Negative for MRSA by DNA Probe Blood Culture - Preliminary Resulted 08/20/16 2316 Blood NO GROWTH TO DATE. Blood Culture - Preliminary Resulted 08/20/16 2313 Blood NO GROWTH TO DATE. Urine Culture - Final Complete 08/19/16 1621 Urine,Catheterized Proteus Mirabilis Blood Culture - Preliminary Resulted 08/19/16 1605 Blood NO GROWTH TO DATE. Blood Culture - Preliminary Resulted 08/19/16 1550 Blood NO GROWTH TO DATE. Assessment & Plan The Infectious Disease Society and the [place] [employer] recommend conversion to oral therapy once a patient is determined to be clinically stable and are able to tolerate oral medications. Patient identified as appropriate candidate for IV to PO conversion of Levaquin based on the following criteria: * Afebrile for greater than or equal to 12 hours * Receiving oral/enteral medications and/or tolerating oral/enteral diet for greater than 24 hours * Improvement in clinical condition evidenced by .. resolution of signs/ symptoms of illness, sepsis resolved (all blood cultures negative) * Of note, WBC increased but patient on steroids * Hemodynamically stable Automatic conversion to: Levaquin 750 mg PO every 24 hours through 08/27
[2016-08-24 16:13] VITALS: BP 151/72; PULSE 117; TEMP 36.7; O2SAT 95
--- NOTE | 2016-08-24 16:37 | Progress Note ---
Internal Med Progress Note Date of Service: Aug 24, 2016. Provider Documentation: resting comfortably eating fine shaky on and off afebrile Exam: General-alert and awake . Non verbal ENT-normal hearing Neck-no neck masses Lungs-cta b/l no wheezing or crackles Heart-s1 and s2 heard regular rate and rhythm no murmurs Abdomen-soft bowel sounds present non tender no distension Extremities-no edema no erythema Neuro-alert and awake moves extremities ASSESSMENT & PLAN: Sepsis with Metabolic Encephalopathy Secondary to urinary tract infection. CXr b/l Pneumonia? proteus in urine Was On iv Zosyn and Vancomycin and Levaquin ID on board hemodynamics stable currently cx no growth so far currently only on Levaquin will monitor Resp distress mostly from volume overload from iv fluids for sepsis required high oxygen received lasix echo grade 1 diastolic dysfunction-otherwise unremarkable currently stable on 2lts will monitor Hypernatremia to encourage to drink water will f/u labs 150 to 147 f/u labs in am Mental retardation. He has been in a half-way. somewhat restless on iv morphine prn will monitor Seizure disorder. He has not had any seizure for many many years. on Lamictal will monitor Hypothyroidism on Synthroid Dysphagia, On pureed diet and medications should be given with applesauce and/or yogurt. He also takes Boost. Gastrointestinal prophylaxis with Protonix. Deep venous thrombosis prophylaxis Heparin Code status. He will be a full code. DISPOSITION monitor in tele to be determined Vital Signs: Date Time Temp Pulse Resp B/P Pulse Ox O2 Delivery O2 Flow Rate FiO2 08/24/16 16:13 36.7 117 20 151/72 95 Nasal Cannula 2.0 08/24/16 14:00 Nasal Cannula 2.0 08/24/16 11:34 36.8 109 16 138/78 94 2.0 08/24/16 08:00 36.9 117 20 152/76 94 Nasal Cannula 2.0 08/24/16 08:00 Nasal Cannula 2.0 08/24/16 04:07 Nasal Cannula 2.0 08/24/16 03:13 36.3 111 22 127/83 94 Nasal Cannula 2.0 08/24/16 00:03 Nasal Cannula 2.0 08/23/16 23:03 36.7 125 24 157/83 97 Nasal Cannula 2.0 08/23/16 20:00 94 Nasal Cannula 2.0 08/23/16 19:59 36.5 135 24 148/84 94 Nasal Cannula 2.0 08/23/16 18:08 120 22 167/86 Lab Results: Results Past 24 Hours Test 08/24/16 06:15 Range/Units White Blood Count 12.10 4.8-10.8 K/uL Red Blood Count 4.31 4.7-6.1 M/uL Hemoglobin 12.5 14.0-18.0 g/dL Hematocrit 37.3 42-52 % Mean Corpuscular Volume 86.5 80-100 fL Mean Corpuscular Hemoglobin 29.0 25-34 pg Mean Corpuscular Hemoglobin Concent 33.5 32-36 g/dl Platelet Count 226 130-400 K/uL Mean Platelet Volume 9.8 7.4-10.4 fL Neutrophils (%) (Auto) 77.4 % Lymphocytes (%) (Auto) 7.5 % Monocytes (%) (Auto) 14.0 % Eosinophils (%) (Auto) 0.0 % Basophils (%) (Auto) 0.1 % Neutrophils # (Auto) 9.37 1.4-6.5 K/uL Lymphocytes # (Auto) 0.91 1.2-3.4 K/uL Monocytes # (Auto) 1.69 0.11-0.59 K/uL Eosinophils # (Auto) 0.00 0-0.5 K/uL Basophils # (Auto) 0.01 0-0.2 K/uL RDW Standard Deviation 47.0 36.4-46.3 fL RDW Coefficient of Variation 14.8 11.5-14.5 % Immature Granulocyte % (Auto) 1.0 % Immature Granulocyte # (Auto) 0.12 0.00-0.02 K/uL Nucleated RBC Absolute Count (auto) 0.03 0-0 K/uL Nucleated Red Blood Cells % 0.2 % Sodium Level 148 136-145 mmol/L Potassium Level 4.7 3.5-5.1 mmol/L Chloride Level 113 98-107 mmol/L Carbon Dioxide Level 29 21-32 mmol/L Anion Gap 6.0 3-11 mmol/L Blood Urea Nitrogen 22 7-18 mg/dl Creatinine 1.30 0.60-1.40 mg/dl Est Creatinine Clear Calc Drug Dose 36.2 ml/min Estimated GFR () 69.2 Estimated GFR (Non- 59.7 BUN/Creatinine Ratio 17.3 10-20 Random Glucose 82 70-99 mg/dl Calcium Level 8.9 8.5-10.1 mg/dl Magnesium Level 2.9 1.8-2.4 mg/dl
[2016-08-24 18:52] VITALS: BP 135/64; PULSE 119; TEMP 36.5; O2SAT 94
[2016-08-24] MEDS ORDERED: LEVOFLOXACIN 750 MG TAB PO SCH (20:00)
[2016-08-24] MEDS: TRAZODONE HCL 50 MG TAB PO SCH (21:04)
[2016-08-25] VITALS (8 sets, daily range): BP systolic 126–158; BP diastolic 62–85; PULSE 95–115; TEMP 36.4–36.7; O2SAT 92–98
[2016-08-25 05:29] LABS: BASO % 0.1 %; BASO ABS # 0.01 K/uL (0-0.2); COMPLETE YES; EOS % 0.2 %; HEMATOCRIT 39.8 % (42-52); IG% 1.9 %; LYMPH % 8.5 %; LYMPH ABS # 1.01 K/uL (1.2-3.4); MEAN CELL VOLUME 87.5 fL (80-100); MEAN CORPUSCULAR HEMOGLOBIN 29.7 pg (25-34); MEAN CORPUSCULAR HGB CONC 33.9 g/dl (32-36); MEAN PLATELET VOLUME 9.5 fL (7.4-10.4); MONO % 9.3 %; PLATELET COUNT 253 K/uL (130-400); RED BLOOD COUNT 4.55 M/uL (4.7-6.1); WHITE BLOOD COUNT 11.82 K/uL (4.8-10.8)
[2016-08-25] MEDS: HEPARIN SOD 5000 UNIT/0.5 ML CARP SQ SCH ×3 (05:48→22:13)
[2016-08-25 05:50] LABS: CALCIUM 8.8 mg/dl (8.5-10.1); CREATININE 1.2 mg/dl (0.60-1.40); MAGNESIUM 2.6 mg/dl (1.8-2.4); POTASSIUM 4.6 mmol/L (3.5-5.1)
[2016-08-25] MEDS: [UNRECOGNIZED DRUG - OTHER] SCH ×2 (08:00→14:40)
[2016-08-25] MEDS: BENZTROPINE MESYLATE 1 MG TAB PO SCH ×3 (08:15→21:09)
[2016-08-25] MEDS: MULTIVITAMIN TAB PO SCH (08:16)
[2016-08-25] MEDS: ASPIRIN 81 MG ECTAB PO SCH (08:17)
[2016-08-25] MEDS: DOCUSATE SODIUM 100 MG CAP PO SCH ×2 (08:17→21:09)
[2016-08-25] MEDS: METOPROLOL TARTRATE 25 MG TAB PO SCH ×2 (08:18→21:08)
[2016-08-25] MEDS: POLYETHYLENE (MIRALAX) 17 GM PACK PO SCH (08:18)
[2016-08-25] MEDS: PANTOprazole SOD 40 MG TAB PO SCH ×2 (08:19→21:07)
[2016-08-25] MEDS: ARIPIprazole TAB 5 MG TAB PO SCH (08:24)
[2016-08-25] MEDS: BOOST VANILLA PO SCH ×2 (08:25)
[2016-08-25] MEDS: LORAZEPAM 1 MG TAB PO SCH ×2 (08:25→21:07)
--- NOTE | 2016-08-25 16:38 | Progress Note ---
Internal Med Progress Note Date of Service: Aug 25, 2016. Provider Documentation: resting comfortably eating fine as per nursing staff afebrile non verbal Exam: General-alert and awake . Non verbal ENT-normal hearing Neck-no neck masses Lungs-cta b/l no wheezing or crackles Heart-s1 and s2 heard regular rate and rhythm no murmurs Abdomen-soft bowel sounds present non tender no distension Extremities-no edema no erythema Neuro-alert and awake moves extremities ASSESSMENT & PLAN: Sepsis with Metabolic Encephalopathy Secondary to urinary tract infection. CXr b/l Pneumonia? proteus in urine Was On iv Zosyn and Vancomycin and Levaquin ID on board hemodynamics stable currently cx no growth so far currently only on Levaquin seems stable will monitor Resp distress mostly from volume overload from iv fluids for sepsis required high oxygen received lasix echo grade 1 diastolic dysfunction-otherwise unremarkable currently stable on 2lts will monitor Hypernatremia to encourage to drink water will f/u labs 149 today f/u labs in am Stable conditions: Mental retardation. He has been in a senior living. somewhat restless on iv morphine prn will monitor Seizure disorder. He has not had any seizure for many many years. on Lamictal will monitor Hypothyroidism on Synthroid Dysphagia, On pureed diet and medications should be given with applesauce and/or yogurt. He also takes Boost. Gastrointestinal prophylaxis with Protonix. Deep venous thrombosis prophylaxis Heparin Code status. He will be a full code. DISPOSITION monitor in tele to be determined Vital Signs: Date Time Temp Pulse Resp B/P Pulse Ox O2 Delivery O2 Flow Rate FiO2 08/25/16 16:00 Nasal Cannula 2.0 08/25/16 14:54 36.7 95 18 126/76 93 Nasal Cannula 2.0 08/25/16 12:00 Nasal Cannula 2.0 08/25/16 11:30 36.4 113 18 133/85 92 Nasal Cannula 2.0 08/25/16 08:00 Nasal Cannula 2.0 08/25/16 07:07 36.7 114 16 130/66 95 Nasal Cannula 2.0 08/25/16 04:00 Nasal Cannula 2.0 08/25/16 03:17 36.7 115 24 158/62 94 Nasal Cannula 2.0 08/25/16 00:19 36.5 105 20 128/62 94 Nasal Cannula 2.0 08/24/16 23:59 Nasal Cannula 2.0 08/24/16 19:20 Nasal Cannula 08/24/16 18:52 36.5 119 18 135/64 94 Nasal Cannula 2.0 Lab Results: Results Past 24 Hours Test 08/25/16 05:20 Range/Units White Blood Count 11.82 4.8-10.8 K/uL Red Blood Count 4.55 4.7-6.1 M/uL Hemoglobin 13.5 14.0-18.0 g/dL Hematocrit 39.8 42-52 % Mean Corpuscular Volume 87.5 80-100 fL Mean Corpuscular Hemoglobin 29.7 25-34 pg Mean Corpuscular Hemoglobin Concent 33.9 32-36 g/dl Platelet Count 253 130-400 K/uL Mean Platelet Volume 9.5 7.4-10.4 fL Neutrophils (%) (Auto) 80.0 % Lymphocytes (%) (Auto) 8.5 % Monocytes (%) (Auto) 9.3 % Eosinophils (%) (Auto) 0.2 % Basophils (%) (Auto) 0.1 % Neutrophils # (Auto) 9.45 1.4-6.5 K/uL Lymphocytes # (Auto) 1.01 1.2-3.4 K/uL Monocytes # (Auto) 1.10 0.11-0.59 K/uL Eosinophils # (Auto) 0.02 0-0.5 K/uL Basophils # (Auto) 0.01 0-0.2 K/uL RDW Standard Deviation 46.5 36.4-46.3 fL RDW Coefficient of Variation 14.6 11.5-14.5 % Immature Granulocyte % (Auto) 1.9 % Immature Granulocyte # (Auto) 0.23 0.00-0.02 K/uL Sodium Level 149 136-145 mmol/L Potassium Level 4.6 3.5-5.1 mmol/L Chloride Level 114 98-107 mmol/L Carbon Dioxide Level 28 21-32 mmol/L Anion Gap 7.0 3-11 mmol/L Blood Urea Nitrogen 25 7-18 mg/dl Creatinine 1.20 0.60-1.40 mg/dl Est Creatinine Clear Calc Drug Dose 39.2 ml/min Estimated GFR () 76.3 Estimated GFR (Non- 65.8 BUN/Creatinine Ratio 21.0 10-20 Random Glucose 75 70-99 mg/dl Calcium Level 8.8 8.5-10.1 mg/dl Magnesium Level 2.6 1.8-2.4 mg/dl
[2016-08-25] MEDS: TRAZODONE HCL 50 MG TAB PO SCH (21:09)
[2016-08-26 00:32] VITALS: BP 121/80
[2016-08-26 04:17] VITALS: BP 119/61; PULSE 106; TEMP 36.7; O2SAT 95
[2016-08-26] MEDS: HEPARIN SOD 5000 UNIT/0.5 ML CARP SQ SCH ×3 (06:03→20:51)
[2016-08-26] MEDS: [UNRECOGNIZED DRUG - OTHER] SCH ×3 (08:00→23:07)
[2016-08-26] MEDS: ASPIRIN 81 MG ECTAB PO SCH (08:46)
[2016-08-26] MEDS: DOCUSATE SODIUM 100 MG CAP PO SCH ×2 (08:46→20:34)
[2016-08-26] MEDS: BENZTROPINE MESYLATE 1 MG TAB PO SCH ×3 (08:46→20:42)
[2016-08-26] MEDS: ARIPIprazole TAB 5 MG TAB PO SCH (08:47)
[2016-08-26] MEDS: METOPROLOL TARTRATE 25 MG TAB PO SCH ×2 (08:47→20:35)
[2016-08-26] MEDS: MULTIVITAMIN TAB PO SCH (08:48)
[2016-08-26] MEDS: PANTOprazole SOD 40 MG TAB PO SCH ×2 (08:48→20:34)
[2016-08-26] MEDS: POLYETHYLENE (MIRALAX) 17 GM PACK PO SCH (08:49)
[2016-08-26] MEDS: BOOST VANILLA PO SCH ×2 (08:54)
[2016-08-26] MEDS: LORAZEPAM 1 MG TAB PO SCH ×2 (08:54→20:44)
[2016-08-26 10:48] LABS: CALCIUM 8.9 mg/dl (8.5-10.1); CREATININE 1.2 mg/dl (0.60-1.40); POTASSIUM 4.1 mmol/L (3.5-5.1)
[2016-08-26 13:35] VITALS: BP 111/71; PULSE 99; TEMP 36.4; O2SAT 95
--- NOTE | 2016-08-26 15:03 | Progress Note ---
Internal Med Progress Note Date of Service: Aug 26, 2016. Provider Documentation: resting comfortably eating fine moved bowels shaky on and off Exam: General-alert and awake . Non verbal ENT-normal hearing Neck-no neck masses Lungs-cta b/l no wheezing or crackles Heart-s1 and s2 heard regular rate and rhythm no murmurs Abdomen-soft bowel sounds present non tender no distension Extremities-no edema no erythema Neuro-alert and awake moves extremities ASSESSMENT & PLAN: Sepsis with Metabolic Encephalopathy Secondary to urinary tract infection. CXr b/l Pneumonia? proteus in urine Was On iv Zosyn and Vancomycin and Levaquin ID on board hemodynamics stable currently cx no growth so far currently only on Levaquin seems stable will f/u cxr in am. Resp distress mostly from volume overload from iv fluids for sepsis required high oxygen received lasix echo grade 1 diastolic dysfunction-otherwise unremarkable currently stable on 2lts will monitor Hypernatremia to encourage to drink water will f/u labs 145 today f/u labs in am Stable conditions: Mental retardation. He has been in a [facility]. somewhat restless on iv morphine prn will monitor Seizure disorder. He has not had any seizure for many many years. on Lamictal will monitor Hypothyroidism on Synthroid Dysphagia, On pureed diet and medications should be given with applesauce and/or yogurt. He also takes Boost. Gastrointestinal prophylaxis with Protonix. Deep venous thrombosis prophylaxis Heparin Code status. He will be a full code. DISPOSITION monitor in tele social service for d/c planning Vital Signs: Date Time Temp Pulse Resp B/P Pulse Ox O2 Delivery O2 Flow Rate FiO2 08/26/16 13:35 36.4 99 20 111/71 95 08/26/16 11:25 Nasal Cannula 2.0 08/26/16 08:15 Nasal Cannula 2.0 08/26/16 04:17 36.7 106 18 119/61 95 Nasal Cannula 2.0 08/26/16 04:00 Nasal Cannula 2.0 08/26/16 00:32 121/80 08/25/16 23:59 Nasal Cannula 2.0 08/25/16 22:54 36.7 97 18 98 Nasal Cannula 2.0 08/25/16 20:00 Nasal Cannula 2.0 08/25/16 19:13 102 08/25/16 19:10 36.6 18 149/63 95 Nasal Cannula 2.0 08/25/16 16:00 Nasal Cannula 2.0 Lab Results: Results Past 24 Hours Test 08/26/16 10:16 Range/Units Sodium Level 145 136-145 mmol/L Potassium Level 4.1 3.5-5.1 mmol/L Chloride Level 106 98-107 mmol/L Carbon Dioxide Level 33 21-32 mmol/L Anion Gap 6.0 3-11 mmol/L Blood Urea Nitrogen 25 7-18 mg/dl Creatinine 1.20 0.60-1.40 mg/dl Est Creatinine Clear Calc Drug Dose 40.4 ml/min Estimated GFR () 76.3 Estimated GFR (Non- 65.8 BUN/Creatinine Ratio 21.0 10-20 Random Glucose 147 70-99 mg/dl Calcium Level 8.9 8.5-10.1 mg/dl
[2016-08-26 15:51] VITALS: BP 122/70; PULSE 100; TEMP 36.4; O2SAT 90
[2016-08-26 19:53] VITALS: BP 135/78; PULSE 102; TEMP 36.5; O2SAT 92
[2016-08-26] MEDS ORDERED: LEVOFLOXACIN 750 MG TAB PO SCH (20:00)
[2016-08-26] MEDS: TRAZODONE HCL 50 MG TAB PO SCH (20:34)
[2016-08-26 23:22] VITALS: BP 122/69; PULSE 97; TEMP 36.9; O2SAT 93
[2016-08-27 04:27] VITALS: BP 109/67; PULSE 101; TEMP 36.6; O2SAT 93
[2016-08-27] MEDS: HEPARIN SOD 5000 UNIT/0.5 ML CARP SQ SCH ×2 (05:33→14:00)
[2016-08-27 06:45] VITALS: BP 121/67; PULSE 100; TEMP 36.6; O2SAT 92
--- NOTE | 2016-08-27 07:18 | DIAGNOSTIC IMAGING REPORT ---
CHEST ONE VIEW PORTABLE HISTORY: Short of breath. congestion/infiltrate COMPARISON: Chest 08/24/2016. FINDINGS: The pulmonary edema has improved. The heart is normal in size. No pleural effusions. No pneumothorax. IMPRESSION: Interval improvement in the pulmonary edema. Electronically signed by: Jaya Hines M.D. 08/27/2016 7:15 AM Dictated Date/Time: 08/27/2016 7:15 AM
[2016-08-27 07:44] VITALS: BP 111/70; PULSE 102; TEMP 36.9; O2SAT 93
[2016-08-27] MEDS: BOOST VANILLA PO SCH ×2 (07:48)
[2016-08-27] MEDS: LORAZEPAM 1 MG TAB PO SCH (07:48)
[2016-08-27] MEDS: POLYETHYLENE (MIRALAX) 17 GM PACK PO SCH (07:48)
[2016-08-27] MEDS: DOCUSATE SODIUM 100 MG CAP PO SCH (07:49)
[2016-08-27] MEDS: METOPROLOL TARTRATE 25 MG TAB PO SCH (07:49)
[2016-08-27] MEDS: PANTOprazole SOD 40 MG TAB PO SCH (07:49)
[2016-08-27] MEDS: ASPIRIN 81 MG ECTAB PO SCH (07:50)
[2016-08-27] MEDS: ARIPIprazole TAB 5 MG TAB PO SCH (07:50)
[2016-08-27] MEDS: MULTIVITAMIN TAB PO SCH (07:50)
[2016-08-27 08:05] LABS: BASO % 0.1 %; BASO ABS # 0.02 K/uL (0-0.2); COMPLETE YES; EOS % 0.4 %; IG% 2.8 %; LYMPH % 5.8 %; LYMPH ABS # 0.83 K/uL (1.2-3.4); MEAN CELL VOLUME 86.3 fL (80-100); MEAN CORPUSCULAR HEMOGLOBIN 29.5 pg (25-34); MEAN CORPUSCULAR HGB CONC 34.2 g/dl (32-36); MEAN PLATELET VOLUME 9.2 fL (7.4-10.4); MONO % 7.9 %; PLATELET COUNT 373 K/uL (130-400); RED BLOOD COUNT 4.98 M/uL (4.7-6.1); WHITE BLOOD COUNT 14.32 K/uL (4.8-10.8)
[2016-08-27 08:37] LABS: BUN/CREATININE RATIO 20.1 (10-20); CALCIUM 8.8 mg/dl (8.5-10.1); CREATININE 1.2 mg/dl (0.60-1.40); MAGNESIUM 2.7 mg/dl (1.8-2.4)
[2016-08-27] MEDS: BENZTROPINE MESYLATE 1 MG TAB PO SCH ×2 (09:42→12:36)
[2016-08-27 11:55] VITALS: BP 126/67; PULSE 96; TEMP 36.9; O2SAT 93
[2016-08-27] MEDS ORDERED: LCTL45 PO (14:22)
[2016-08-27] MEDS ORDERED: LPR25 PO (14:22)
[2016-08-27] MEDS ORDERED: LEVO750T23 PO (14:22)
--- NOTE | 2016-08-27 14:25 | Discharge Instructions ---
Discharge Instructions Date of Service Aug 27, 2016. Admission Reason for Admission: Sepsis Due To Urinary Tract Infection Discharge Discharge Diagnosis / Problem: sepsis, uti, pneumonia? Discharge Goals Goal(s): Decrease discomfort, Improve function Activity Recommendations Activity Level: Up Ad Shanon, Assistance Required Therapies: Physical Therapy, Occupational Therapy . Additional Information Patient informed of condition: Yes (MR) Advance Directives: Yes DNR: Yes Level of Care: Other ([facility]) Communicable Disease: No Prognosis: Stable Rodriguez Catheter: No Instructions / Follow-Up Instructions / Follow-Up FOLLOWUP WITH FAMILY DOCTOR Diana Pappas ON August AT 10:45AM. PLEASE NOT TO GIVE MAGNESIUM CONTAINING COMPOUNDS LIKE MILK OF MAGNESIA, MAALOX OR MAGNESIUM CITRATE MAGNESIUM LEVELS ARE HIGH. PLEASE ENCOURAGE WATER INTAKE TO PREVENT DEHYDRATION. LAB: BMP WITH MG LEVELS IN 5-7 DAYS AND FOLLOW RESULTS WITH FAMILY DOCTOR( FOR HYPERNATREMIA AND MAGNESIUM LEVELS) Current Hospital Diet Patient's current hospital diet: Regular Diet Discharge Diet Recommended Diet: Regular Diet Diet Texture: Pureed (blended smooth) Pending Studies Studies pending at discharge: no Physician Orders On Transfer Special Precautions: FALL AND ASPIRATION PRECAUTIONS Vital Signs: EVERY 8HRS Medical Emergencies . Who to Call and When: Medical Emergencies: If at any time you feel your situation is an emergency, please call 911 immediately. . Non-Emergent Contact Non-Emergency issues call your: Primary Care Provider . . "Provider Documentation" section prepared by Ton Rankin. Core Measure Problem Core Measures: None
--- NOTE | 2016-08-27 14:39 | Progress Note ---
Internal Med Progress Note Date of Service: Aug 27, 2016. Provider Documentation: RESTING COMFORTABLY LESS SHAKY TODAY AFEBRILE EATING FINE AMBULATED OK IN PT Exam: General-alert and awake . Non verbal ENT-normal hearing Neck-no neck masses Lungs-cta b/l no wheezing or crackles Heart-s1 and s2 heard regular rate and rhythm no murmurs Abdomen-soft bowel sounds present non tender no distension Extremities-no edema no erythema Neuro-alert and awake moves extremities ASSESSMENT & PLAN: Sepsis with Metabolic Encephalopathy Secondary to urinary tract infection. CXr b/l Pneumonia? proteus in urine Was On iv Zosyn and Vancomycin and Levaquin ID on board hemodynamics stable currently cx no growth so far currently only on Levaquin seems stable cxr today improved discharged on po Levaquin Resp distress mostly from volume overload from iv fluids for sepsis required high oxygen received lasix echo grade 1 diastolic dysfunction-otherwise unremarkable currently stable on 2lts doing ok off of oxygen Hypernatremia to encourage to drink water will f/u labs 146 today f/u labs with pcp to encourage water intake Mental retardation. He has been in a assisted. somewhat restless on iv morphine prn will monitor Seizure disorder. He has not had any seizure for many many years. on Lamictal will monitor Hypothyroidism on Synthroid Dysphagia, On pureed diet and medications should be given with applesauce and/or yogurt. He also takes Boost. Gastrointestinal prophylaxis with Protonix. Discharged home Vital Signs: Date Time Temp Pulse Resp B/P Pulse Ox O2 Delivery O2 Flow Rate FiO2 08/27/16 12:00 Room Air 08/27/16 11:55 36.9 96 18 126/67 93 Room Air 08/27/16 08:00 Room Air 08/27/16 07:44 36.9 102 18 111/70 93 Room Air 08/27/16 06:45 36.6 100 18 121/67 92 08/27/16 04:27 36.6 101 18 109/67 93 Room Air 08/27/16 04:00 Room Air 08/26/16 23:59 Room Air 08/26/16 23:22 36.9 97 18 122/69 93 Room Air 08/26/16 20:00 Room Air 08/26/16 19:53 36.5 102 18 135/78 92 Room Air 08/26/16 15:51 36.4 100 20 122/70 90 Room Air 08/26/16 15:20 Nasal Cannula 2.0 Lab Results: Results Past 24 Hours Test 08/27/16 07:55 Range/Units White Blood Count 14.32 4.8-10.8 K/uL Red Blood Count 4.98 4.7-6.1 M/uL Hemoglobin 14.7 14.0-18.0 g/dL Hematocrit 43.0 42-52 % Mean Corpuscular Volume 86.3 80-100 fL Mean Corpuscular Hemoglobin 29.5 25-34 pg Mean Corpuscular Hemoglobin Concent 34.2 32-36 g/dl Platelet Count 373 130-400 K/uL Mean Platelet Volume 9.2 7.4-10.4 fL Neutrophils (%) (Auto) 83.0 % Lymphocytes (%) (Auto) 5.8 % Monocytes (%) (Auto) 7.9 % Eosinophils (%) (Auto) 0.4 % Basophils (%) (Auto) 0.1 % Neutrophils # (Auto) 11.88 1.4-6.5 K/uL Lymphocytes # (Auto) 0.83 1.2-3.4 K/uL Monocytes # (Auto) 1.13 0.11-0.59 K/uL Eosinophils # (Auto) 0.06 0-0.5 K/uL Basophils # (Auto) 0.02 0-0.2 K/uL RDW Standard Deviation 44.4 36.4-46.3 fL RDW Coefficient of Variation 14.4 11.5-14.5 % Immature Granulocyte % (Auto) 2.8 % Immature Granulocyte # (Auto) 0.40 0.00-0.02 K/uL Sodium Level 146 136-145 mmol/L Potassium Level 4.0 3.5-5.1 mmol/L Chloride Level 109 98-107 mmol/L Carbon Dioxide Level 28 21-32 mmol/L Anion Gap 9.0 3-11 mmol/L Blood Urea Nitrogen 24 7-18 mg/dl Creatinine 1.20 0.60-1.40 mg/dl Est Creatinine Clear Calc Drug Dose 40.4 ml/min Estimated GFR () 76.3 Estimated GFR (Non- 65.8 BUN/Creatinine Ratio 20.1 10-20 Random Glucose 170 70-99 mg/dl Calcium Level 8.8 8.5-10.1 mg/dl Magnesium Level 2.7 1.8-2.4 mg/dl
[2016-08-27 15:10] VITALS: BP 126/67; PULSE 96; TEMP 36.9; O2SAT 93
--- NOTE | 2016-08-27 16:15 | Discharge Summary ---
Discharge Summary Date of Service Aug 27, 2016. Discharge Summary Admission Date: Aug 19, 2016 at 19:01 Discharge Date: Aug 27, 2016 Discharge Disposition: assisted facility (retirement with skills) Principal Diagnosis: SEPSIS UTI PNEUMONIA? RESP DISTRESS Secondary Diagnoses/Problems: mental retardation, hepatitis B carrier, hypothyroidism, seizure disorder and history of dysphagia Procedures: CT HEAD: No significant change compared to the prior study. No acute intracranial abnormality. CXR: No acute process VENOUS DOPPLER: No DVT within the right or left lower extremity. CT ABD/PELVIS: 1. No definite bowel wall thickening or obstruction. 2. Normal caliber appendix. 3. No renal stones or hydronephrosis. 4. Mild body wall edema. 5. Rodriguez catheter within the bladder. 6. Large amount of well-formed stool seen within the colon. 7. Moderate right and small left pleural effusions. Bilateral lower lobe consolidations favor compressive atelectasis from the pleural effusions. However, a pneumonia could also have a similar appearance. 8. The study is limited from a technical standpoint as described above Consultations: CRITICAL CARE Medication Reconciliation New Medications: Levofloxacin (Levaquin) 750 Mg Tab 1 TAB PO Q2D, #3 TAB Lactulose (Lactulose) 30 Gm/45 Ml Syrp 30 GM PO BID PRN for Constipation for 30 Days Metoprolol Tartrate (Lopressor) 25 Mg Tab 12.5 MG PO BID, #30 TAB 1 Refill Continued Medications: Acetaminophen (Tylenol 8 Hour Arthritis) 650 Mg Tab 650 MG PO Q6H PRN for Fever or Headache Aripiprazole (Abilify) 5 Mg Tab 5 MG PO DAILY Aspirin (Aspirin Chewable) 81 Mg Chew 81 MG PO DAILY, TAB Benztropine Mesylate (Benztropine Mesylate) 2 Mg Tab 1 TAB PO TID for 30 Days, #90 TAB 1 Refill Docusate Sodium (Docusate Sodium) 100 Mg Cap 100 MG PO BID Entecavir (Baraclude) 0.5 Mg Tab 0.5 MG PO DAILY TAKE ON EMPTY STOMACH Lamotrigine (Lamictal) 200 Mg Tab 200 MG PO BID, TAB Loperamide Hcl (Imodium) 2 Mg Cap 4 MG PO ONSET OF LOOSE STOOL, CAP Lorazepam (Ativan) 1 Mg Tab 1 MG PO BID Multiple Vitamin (Multivitamin) 1 Tab Tab 1 TABLET PO DAILY, TAB Nutritional Supplements (Boost) 1 Liq Liq 1 CAN PO DAILY Pantoprazole (Protonix) 40 Mg Tab 40 MG PO BID, #30 TAB Polyethylene Glycol 3350 (Miralax) 1 Pow Pow 17 GM PO DAILY DISSOLVE ONE HEAPING TEASPOONFUL IN 8 OZ OF WATER OR JUICE Pseudoephedrine (Sudafed) 30 Mg Tab 30 MG PO Q4 PRN for CONGESTION, TAB Sodium Fluoride (Dental) (Prevident Rinse) 0.2 % Lottie 1 DOSE MT UD PREPARE RINSING SOLUTION AND USE PER DIRECTIONS TWICE DAILY Trazodone Hcl (Desyrel) 50 Mg Tab 50 MG PO HS, TAB Discontinued Medications: Aluminum/Magnesium/Simeth (Maalox Max Susp) Susp 30 ML PO QID PRN for PRN Magnesium Hydroxide (Milk Of Magnesia) 30 Ml Susp 30 ML PO QID PRN for UPSET STOMACH, ML Admission Information HPI (per Admitting provider): He is a 60-year-old male with significant medical history of mental retardation, hepatitis B carrier, hypothyroidism, seizure disorder and history of dysphagia. Apparently, lives in a retirement and is taken care of by a caregiver. The caregiver noted that he has not been eating or drinking normally since yesterday. He has had more shaking of the limbs and he was needed to be fed, which is unusual. This morning, the shaking and confusion was worse and she noted that the patient felt very warm. From that point, he was brought to the Emergency Room for further evaluation. No history of nausea, vomiting, abdominal distention or any pain. No history of any problem with urine and/or bowel, though he is incontinent. No rash, no ulcers in the extremities and no swelling of the legs. He does not have any weakness involving any side in particular. In the Emergency Room, he was noted to have a temperature of 38.3. His blood pressure went down to 96/61, his pulse about 84, saturation 96 on three liters, his white count was noted to be high at 13,000 with a lactate elevated to more than 3 and Urinary tract infection. From that point, he was admitted to telemetry unit with a possible diagnosis of sepsis secondary to urinary tract infection. Physical Exam (per Admitting): GENERAL: On examination in the Emergency Room, he was not having any acute distress. He is nonverbal. He was having shakiness involving the upper extremities which is usual for him. VITAL SIGNS: Temperature 38.3, pulse was 84, blood pressure 96/61 and saturation 96% on three liters nasal cannula. HEENT: Unremarkable. NECK: Supple. No JVD, no bruits. CHEST: Clear to auscultation bilaterally. HEART: S1, S2 regular. No murmur appreciated. ABDOMEN: Soft, benign, slightly distended, nontender, no organomegaly. RECTAL: Deferred. EXTREMITIES: Negative for any edema. MUSCULOSKELETAL: Did not show any acute arthritis involving any joint. CENTRAL NERVOUS SYSTEM: Alert, awake. He is mentally retarded and nonverbal. Hospital Course Sepsis with Metabolic Encephalopathy Secondary to urinary tract infection. CXr b/l Pneumonia? proteus in urine Was On iv Zosyn and Vancomycin and Levaquin ID on board hemodynamics stable currently cx no growth so far currently only on Levaquin seems stable cxr today improved discharged on po Levaquin Resp distress mostly from volume overload from iv fluids for sepsis required high oxygen received lasix echo grade 1 diastolic dysfunction-otherwise unremarkable currently stable on 2lts doing ok off of oxygen Hypernatremia to encourage to drink water will f/u labs 146 today f/u labs with pcp to encourage water intake Mental retardation. He has been in a retirement. somewhat restless on iv morphine prn will monitor Seizure disorder. He has not had any seizure for many many years. on Lamictal will monitor Hypothyroidism on Synthroid Dysphagia, On pureed diet and medications should be given with applesauce and/or yogurt. He also takes Boost. Gastrointestinal prophylaxis with Protonix. Discharged home Total time spent on discharge = 40MINUTES This includes examination of the patient, discharge planning, medication reconciliation, and communication with other providers. Discharge Instructions Discharge Instructions Date of Service Aug 27, 2016. Admission Reason for Admission: Sepsis Due To Urinary Tract Infection Discharge Discharge Diagnosis / Problem: sepsis, uti, pneumonia? Discharge Goals Goal(s): Decrease discomfort, Improve function Activity Recommendations Activity Level: Up Ad Shanon, Assistance Required Therapies: Physical Therapy, Occupational Therapy . Additional Information Patient informed of condition: Yes (MR) Advance Directives: Yes DNR: Yes Level of Care: Other (retirement with skills) Communicable Disease: No Prognosis: Stable Rodriguez Catheter: No Instructions / Follow-Up Instructions / Follow-Up FOLLOWUP WITH FAMILY DOCTOR Diana Pappas ON August AT 10:45AM. PLEASE NOT TO GIVE MAGNESIUM CONTAINING COMPOUNDS LIKE MILK OF MAGNESIA, MAALOX OR MAGNESIUM CITRATE MAGNESIUM LEVELS ARE HIGH. PLEASE ENCOURAGE WATER INTAKE TO PREVENT DEHYDRATION. LAB: BMP WITH MG LEVELS IN 5-7 DAYS AND FOLLOW RESULTS WITH FAMILY DOCTOR( FOR HYPERNATREMIA AND MAGNESIUM LEVELS) Current Hospital Diet Patient's current hospital diet: Regular Diet Discharge Diet Recommended Diet: Regular Diet Diet Texture: Pureed (blended smooth) Pending Studies Studies pending at discharge: no Physician Orders On Transfer Special Precautions: FALL AND ASPIRATION PRECAUTIONS Vital Signs: EVERY 8HRS Medical Emergencies . Who to Call and When: Medical Emergencies: If at any time you feel your situation is an emergency, please call 911 immediately. . Non-Emergent Contact Non-Emergency issues call your: Primary Care Provider . . "Provider Documentation" section prepared by Ton Rankin. Core Measure Problem Core Measures: None
== END 2016-08-27 15:38 | disposition home or self-care (01) | DRG 871 ==
LOC: ENRESERVTM → ENRESERVDT → EDBD 15:00 → C.EDB 15:01 → C.2T 19:01 → C.MS2W 08-20 14:35 → C.MED 08-20 18:24 → C.MSICU 08-21 19:09 → C.2T 08-23 13:37
PROVIDERS: ADMIT Internal Medicine; ATTEND Internal Medicine
DX: A41.9 Sepsis, unspecified organism (principal); G93.41 Metabolic encephalopathy; J18.9 Pneumonia, unspecified organism; N39.0 Urinary tract infection, site not specified; B19.10 Unspecified viral hepatitis B without hepatic coma; E87.0 Hyperosmolality and hypernatremia; G40.909 Epilepsy, unspecified, not intractable, without status epilepticus; E03.9 Hypothyroidism, unspecified; B96.4 Proteus (mirabilis) (morganii) as the cause of diseases classified elsewhere; F79 Unspecified intellectual disabilities; R13.10 Dysphagia, unspecified

== ENCOUNTER 2017-04-20 08:08 | Emergency (ER) | payer OTHER ==
[~2017-04-20 08:08] MED LIST changes: +ABL/5 PO; +ACET650T97 PO; -ALUMSUS2 PO; +ATV/1 PO; +DOCU100C31 PO; +ENTE0.5T PO; +LCTL45 PO; -LORA0.5T12 PO; +LPR25 PO; -MAGNSUS5 PO; +NUTR-7 PO; +POLY335019 PO; -POLY335040 PO; -SENN-51 PO; -TRIH2TAB2 PO; +[UNRECOGNIZED DRUG - CODE] MT
[2017-04-20 08:11] VITALS: BP 132/73
--- NOTE | 2017-04-20 08:47 | EMERGENCY ROOM VISIT NOTE ---
History Report prepared by Mary: Cassandra Casanova Under the Supervision of: Luis HarrisO. First contact with patient: 08:32 Chief Complaint: HEAD INJURY (MINOR) Stated Complaint: FELL, CUT ON HEAD History of Present Illness The patient is a 61 year old male who presents to the Emergency Room with complaints of a sudden head injury occurring this morning. Per his caregiver, the patient scraped his head on a night table when getting out of bed this morning. Per his caregiver, the patient did not lose consciousness. Source of History: treating provider Onset: this morning Position: head Quality: other (injury ) Timing: other (sudden ) Associated Symptoms: No LOC Review of Systems See HPI for pertinent positives & negatives. A total of 10 systems reviewed and were otherwise negative. Past Medical & Surgical Medical Problems: (1) Dysphagia (2) Hepatitis (3) Hypothyroidism (4) Mental retardation (5) Pneumonia Family History Patient reports no known family medical history. Social History Smoking Status: Never Smoker Alcohol Use: none Drug Use: none Marital Status: single Housing Status: assisted living Occupation Status: disabled Current/Historical Medications Scheduled Aripiprazole (Abilify), 5 MG PO DAILY Aspirin (Aspirin Chewable), 81 MG PO DAILY Benztropine Mesylate (Benztropine Mesylate), 1 TAB PO TID Docusate Sodium (Docusate Sodium), 100 MG PO BID Entecavir (Baraclude), 0.5 MG PO DAILY Lamotrigine (Lamictal), 200 MG PO BID Loperamide Hcl (Imodium), 4 MG PO ONSET OF LOOSE STOOL Lorazepam (Ativan), 1 MG PO BID Metoprolol Tartrate (Lopressor), 12.5 MG PO BID Multiple Vitamin (Multivitamin), 1 TABLET PO DAILY Nutritional Supplements (Boost), 1 CAN PO DAILY Pantoprazole (Protonix), 40 MG PO BID Polyethylene Glycol 3350 (Miralax), 17 GM PO DAILY Sodium Fluoride (Dental) (Prevident Rinse), 1 DOSE MT UD Trazodone Hcl (Desyrel), 50 MG PO HS Scheduled PRN Acetaminophen (Tylenol 8 Hour Arthritis), 650 MG PO Q6H PRN for Fever or Headache Lactulose (Lactulose), 30 GM PO BID PRN for Constipation Pseudoephedrine (Sudafed), 30 MG PO Q4 PRN for CONGESTION Allergies Coded Allergies: Haloperidol (Verified Allergy, Mild, 05/14/16) Loxapine (Verified Allergy, Mild, 05/14/16) Thioridazine (Verified Allergy, Mild, 05/14/16) Clonazepam (Unverified Allergy, Unknown, UNKNOWN, 05/14/16) Sulfamethoxazole w/Trimethoprim (Unverified Allergy, Unknown, UNKNOWN, 05/14) Zonisamide (Unverified Allergy, Unknown, UNKNOWN, 05/14/16) Diazepam (Verified Adverse Reaction, Mild, 05/14/16) Imipramine (Verified Adverse Reaction, Mild, 05/14/16) Risperidone (Verified Adverse Reaction, Mild, 05/14/16) Physical Exam Vital Signs Date Time Temp Pulse Resp B/P (MAP) Pulse Ox O2 Delivery O2 Flow Rate FiO2 04/20/17 08:11 20 132/73 Room Air Physical Exam CONSTITUTIONAL/VITAL SIGNS: Reviewed / noted above. GENERAL: Non-toxic in appearance. INTEGUMENTARY: Warm, dry, and [place]. HEAD: 3 cm skin tear to the right parietal scalp, no contamination, minimal bleeding. Small contusion to the left frontal region. EYES: without scleral icterus or trauma. ENT/OROPHARYNX: clear and moist. LYMPHADENOPATHY/NECK: Is supple without lymphadenopathy or meningismus. RESPIRATORY: Lungs clear and equal. CARDIOVASCULAR: Regular rate and rhythm. GI/ABDOMEN: Soft and nontender. No organomegaly or pulsatile mass. No rebound or guarding. Normal bowel sounds. EXTREMITIES: Warm and well perfused. BACK: No CVA tenderness. NEUROLOGICAL: Intact without focal deficits. PSYCHIATRIC: normal affect. MUSCULOSKELETAL: Normally developed with good muscle tone. Medical Decision & Procedures ED Course 0834: Previous medical records were reviewed. The patient was evaluated in room B4B. A complete history and physical examination was performed. 0845: On reevaluation, the patient is resting. I discussed the results and findings with his caregiver. His caregiver verbalized agreement of the treatment plan. He was discharged home. Medical Decision Differential includes close head injury, intracranial bleed, facial trauma, cervical spine trauma, chest and thoracic trauma, abdominal and intra-abdominal trauma, spine neurologic trauma, extremity trauma. This is a 61-year-old male who presents to the ED with a chief complaint of a scalp injury. The patient was getting out of bed and attempted to put his hand on the dresser when he missed the dresser and this caused him to fall. He bumped his left frontal forehead area and caused a skin tear to the right parietal scalp. The skin tear was approximated over the affected area mechanically with good coverage. This does not require sutures. There is a small contusion to the left forehead. There was no loss of consciousness. Patient's exam was normal. The patient is acting normal. He is mentally handicapped. He is nonverbal. The patient is acting himself according to caregiver. He is felt to be stable for discharge. Tetanus shot is up-to-date. Medication Reconcilliation Current Medication List: was personally reviewed by me Blood Pressure Screening Patient's blood pressure: Normal blood pressure Impression Primary Impression: Skin tear Additional Impression: Forehead contusion Scribe Attestation The scribe's documentation has been prepared under my direction and personally reviewed by me in its entirety. I confirm that the note above accurately reflects all work, treatment, procedures, and medical decision making performed by me. Departure Information Dispostion Home / Self-Care Referrals No Doctor, Assigned (PCP) Forms HOME CARE DOCUMENTATION FORM, IMPORTANT VISIT INFORMATION Patient Instructions ED Head Injury Closed, [facility] Additional Instructions Watch scalp wound for signs of infection. Return for any concerns. Problem Qualifiers
[2017-04-20] MEDS ORDERED: LEVO75TA PO (08:50)
[2017-04-20] MEDS ORDERED: METO25TA56 PO (08:50)
[2017-04-20] MEDS ORDERED: BENZ-88 PO (08:50)
[2017-04-20] MEDS ORDERED: SENN-91 PO (08:50)
== END 2017-04-20 08:50 | disposition home or self-care (01) ==
LOC: C.EDB 08:12
DX: S01.01XA Laceration without foreign body of scalp, initial encounter (principal); S00.83XA Contusion of other part of head, initial encounter; W01.198A Fall on same level from slipping, tripping and stumbling with subsequent striking against other object, initial encounter; F79 Unspecified intellectual disabilities; Z87.01 Personal history of pneumonia (recurrent); Z79.82 Long term (current) use of aspirin

== ENCOUNTER 2017-09-09 10:36 | Emergency (ER) | payer OTHER ==
[~2017-09-09] VITALS: Ht 152.4 cm; Wt 46.5 kg
[~2017-09-09 10:36] MED LIST changes: -ABL/5 PO; +BENZ-88 PO; -BENZ2TAB6 PO; -IMD/2 PO; -LCTL45 PO; +LEVO75TA PO; -LPR25 PO; +METO25TA56 PO; +PANT1TAB3 PO; -PANT1TAB48 PO; -PSEU30TA20 PO; +SENN-91 PO; -[UNRECOGNIZED DRUG - CODE] MT
[2017-09-09 10:43] VITALS: TEMP 36.7; Ht 152.4 cm; Wt 46.5 kg
[2017-09-09] MEDS ORDERED: SODIUM CHLORIDE 0.9% 1000ML 1,000 ML IV STA (11:14)
[2017-09-09 11:37] LABS: BASO % 0.1 %; BASO ABS # 0.01 K/uL (0-0.2); HEMATOCRIT 39.5 % (42-52); HEMOGLOBIN 13.4 g/dL (14.0-18.0); IG# 0.04 K/uL (0.00-0.02); LYMPH % 5.5 %; LYMPH ABS # 0.45 K/uL (1.2-3.4); MEAN CELL VOLUME 89.4 fL (80-100); MEAN CORPUSCULAR HEMOGLOBIN 30.3 pg (25-34); MEAN CORPUSCULAR HGB CONC 33.9 g/dl (32-36); MEAN PLATELET VOLUME 8.5 fL (7.4-10.4); MONO % 6.8 %; MONO ABS # 0.55 K/uL (0.11-0.59); NEUT % 87.1 %; NEUT ABS # 7.07 K/uL (1.4-6.5); PLATELET COUNT 163 K/uL (130-400); RED CELL DISTRIBUTION WIDTH CV 13.7 % (11.5-14.5); RED CELL DISTRIBUTION WIDTH SD 45.6 fL (36.4-46.3); WHITE BLOOD COUNT 8.12 K/uL (4.8-10.8)
--- NOTE | 2017-09-09 11:37 | EMERGENCY ROOM VISIT NOTE ---
History Report prepared by Mary: Breezy Padilla Under the Supervision of: Dr. Pieter Tsai M.D. First contact with patient: 11:01 Chief Complaint: FALL Stated Complaint: FALL/ABRASION History of Present Illness The patient is a 61 year old male who presents to the Emergency Room with complaints of a sudden fall occurring prior to arrival. Per the nursing staff the patient fell from standing, and he has been more tired than usual. History is limited secondary to baseline mental status and non-verbal. Source of History: nursing staff History Limited By: other (baseline mental status and non-verbal) Onset: prior to arrival Position: other (global) Quality: other Timing: other (sudden ) Review of Systems History is limited secondary to baseline mental status and non-verbal. Past Medical & Surgical Medical Problems: (1) Dysphagia (2) Hepatitis (3) Hypothyroidism (4) Mental retardation (5) Pneumonia Family History Patient reports no known family medical history. Social History Smoking Status: Never Smoker Alcohol Use: none Drug Use: none Marital Status: single Housing Status: assisted living Occupation Status: disabled Current/Historical Medications Scheduled Aripiprazole (Abilify), 5 MG PO DAILY Aspirin (Aspirin Chewable), 81 MG PO DAILY Benztropine Mesylate (Benztropine Mesylate), 1 MG PO TID Cefdinir (Omnicef), 300 MG PO Q12H Docusate Sodium (Docusate Sodium), 100 MG PO BID Entecavir (Baraclude), 0.5 MG PO DAILY Lamotrigine (Lamictal), 200 MG PO BID Levothyroxine Sodium (Synthroid), 75 MCG PO DAILY Lorazepam (Ativan), 1 MG PO BID Lorazepam (Ativan), 0.5 MG PO HS Metoprolol Tartrate (Lopressor) (Lopressor), 25 MG PO BID Multiple Vitamin (Multivitamin), 1 TABLET PO DAILY Nutritional Supplements (Boost), 1 CAN PO DAILY Pantoprazole (Protonix), 40 MG PO BID Sennosides-Docusate Sodium (Senna S), 1 TAB PO BID Trazodone Hcl (Desyrel), 50 MG PO HS Scheduled PRN Acetaminophen (Tylenol 8 Hour Arthritis), 650 MG PO Q6H PRN for Fever or Headache Polyethylene Glycol 3350 (Miralax), 17 GM PO DAILY PRN for Constipation Allergies Coded Allergies: Haloperidol (Verified Allergy, Mild, 04/20/17) Loxapine (Verified Allergy, Mild, 04/20/17) Thioridazine (Verified Allergy, Mild, 04/20/17) Clonazepam (Unverified Allergy, Unknown, UNKNOWN, 04/20/17) Sulfamethoxazole w/Trimethoprim (Unverified Allergy, Unknown, UNKNOWN, 04/20/17) Zonisamide (Unverified Allergy, Unknown, UNKNOWN, 04/20/17) Diazepam (Verified Adverse Reaction, Mild, 04/20/17) Imipramine (Verified Adverse Reaction, Mild, 04/20/17) Risperidone (Verified Adverse Reaction, Mild, 04/20/17) Physical Exam Vital Signs Date Time Temp Pulse Resp B/P (MAP) Pulse Ox O2 Delivery O2 Flow Rate FiO2 09/09/17 13:52 72 16 115/70 93 09/09/17 13:19 90 16 93 Room Air 09/09/17 10:43 36.7 96 22 120/62 93 Room Air Physical Exam GENERAL: Awake, alert, fatigued-appearing, in no distress HENT: 2cm left forehead abrasion. Normocephalic. Dry mucous membranes. Oropharynx otherwise unremarkable. EYES: Normal conjunctiva. Sclera non-icteric. NECK: Supple. No nuchal rigidity. FROM. No JVD. RESPIRATORY: Clear to auscultation. CARDIAC: Regular rate, normal rhythm. Extremities warm and well perfused. Pulses equal. ABDOMEN: Soft, non-distended. No tenderness to palpation. No rebound or guarding. No masses. RECTAL: Deferred. MUSCULOSKELETAL: Chest examination reveals no tenderness. The back is symmetrical on inspection without obvious abnormality. There is no CVA tenderness to palpation. No joint edema. LOWER EXTREMITIES: Calves are equal size bilaterally and non-tender. No edema. No discoloration. NEURO: Non-verbal at baseline moving all extremities equally. Following commands. SKIN: No rash or jaundice noted. Medical Decision & Procedures ER Provider Diagnostic Interpretation: Radiology results as stated below per my review and radiologist interpretation: HEAD WITHOUT CONTRAST (CT) CLINICAL HISTORY: 61 years-old Male presenting with pain, brain lesions, fall. TECHNIQUE: Multidetector CT imaging of the head was performed without the use of intravenous contrast. IV contrast: None. A dose lowering technique was used consistent with the principles of ALARA (as low as reasonably achievable). COMPARISON: 08/19/2016. CT DOSE (mGy.cm): The estimated cumulative dose is 923.15. FINDINGS: Fiscal Accountant topogram: Unremarkable. Proportional ventricular and sulcal prominence, likely age-related parenchymal volume loss. Periventricular and subcortical white matter hypoattenuation, nonspecific but likely indicative of chronic small vessel ischemic change. No mass effect or midline shift. No hemorrhage or acute territorial infarct. No extra-axial fluid collection. Paranasal sinuses and mastoid air cells clear. Calvarium intact. IMPRESSION: 1. Chronic small vessel ischemic change. No acute intracranial abnormality. Electronically signed by: Manjit Kingsley M.D. 09/09/2017 11:52 AM Dictated Date/Time: 09/09/2017 11:48 AM CHEST ONE VIEW PORTABLE CLINICAL HISTORY: 61 years-old Male presenting with ABDOMINAL PAIN/GI. TECHNIQUE: Portable upright AP view of the chest was obtained. COMPARISON: 08/27/2016. FINDINGS: Cardiomediastinal silhouette normal. No focal opacity. No large effusion or pneumothorax. Osseous structures normal. Upper abdomen normal. IMPRESSION: 1. No acute cardiopulmonary disease. Electronically signed by: Manjit Kingsley M.D. 09/09/2017 11:48 AM Dictated Date/Time: 09/09/2017 11:45 AM CERVICAL SPINE W/O CT DOSE: 923.15 mGy.cm CLINICAL HISTORY: 61 years-old Male with pain fall. Acute neck pain status post fall COMPARISON: CT cervical spine 02/05/2013. TECHNIQUE: Multiple axial CT images of the cervical spine were obtained without contrast. A dose lowering technique was utilized adhering to the principles of ALARA. FINDINGS: Mastoid air cells and middle ear cavities are clear. Mild mucoperiosteal thickening of the maxillary sinuses. No acute cervical spine fracture or subluxation is identified. Moderate to severe intervertebral disc space narrowing at C6-C7 is unchanged. 3 mm anterolisthesis C5 on C6 has slightly progressed from comparison, likely secondary to underlying severe facet arthrosis at this level. Moderate to severe facet arthropathy at C4-C5 and on the right at C2-C3. Moderate multilevel facet arthropathy is noted in addition to moderate multilevel endplate spurring. Degenerative changes overall have slightly increased from comparison. Evaluation of central canal and neuroforaminal stenosis is better conducted by MRI. Soft tissues are unremarkable. Lung apices are clear. IMPRESSION: 1. No acute fracture or subluxation identified. 2. Progressively worsened degenerative changes about the cervical spine as detailed above. The above report was generated using voice recognition software. It may contain grammatical, syntax or spelling errors. Electronically signed by: Dwight Chamberlain M.D. 09/09/2017 11:57 AM Dictated Date/Time: 09/09/2017 11:52 AM Laboratory Results 09/09/17 11:25 Red Blood Count 4.42, Mean Corpuscular Volume 89.4, Mean Corpuscular Hemoglobin 30.3, Mean Corpuscular Hemoglobin Concent 33.9, Mean Platelet Volume 8.5, Neutrophils (%) (Auto) 87.1, Lymphocytes (%) (Auto) 5.5, Monocytes (%) (Auto) 6.8, Eosinophils (%) (Auto) 0.0, Basophils (%) (Auto) 0.1, Neutrophils # (Auto) 7.07, Lymphocytes # (Auto) 0.45, Monocytes # (Auto) 0.55, Eosinophils # (Auto) 0.00, Basophils # (Auto) 0.01 09/09/17 11:25 Test 09/09/17 11:25 09/09/17 12:40 White Blood Count 8.12 K/uL (4.8-10.8) Red Blood Count 4.42 M/uL (4.7-6.1) Hemoglobin 13.4 g/dL (14.0-18.0) Hematocrit 39.5 % (42-52) Mean Corpuscular Volume 89.4 fL (80-100) Mean Corpuscular Hemoglobin 30.3 pg (25-34) Mean Corpuscular Hemoglobin Concent 33.9 g/dl (32-36) Platelet Count 163 K/uL (130-400) Mean Platelet Volume 8.5 fL (7.4-10.4) Neutrophils (%) (Auto) 87.1 % Lymphocytes (%) (Auto) 5.5 % Monocytes (%) (Auto) 6.8 % Eosinophils (%) (Auto) 0.0 % Basophils (%) (Auto) 0.1 % Neutrophils # (Auto) 7.07 K/uL (1.4-6.5) Lymphocytes # (Auto) 0.45 K/uL (1.2-3.4) Monocytes # (Auto) 0.55 K/uL (0.11-0.59) Eosinophils # (Auto) 0.00 K/uL (0-0.5) Basophils # (Auto) 0.01 K/uL (0-0.2) RDW Standard Deviation 45.6 fL (36.4-46.3) RDW Coefficient of Variation 13.7 % (11.5-14.5) Immature Granulocyte % (Auto) 0.5 % Immature Granulocyte # (Auto) 0.04 K/uL (0.00-0.02) Anion Gap 5.0 mmol/L (3-11) Est Creatinine Clear Calc Drug Dose 47.0 ml/min Estimated GFR () 84.1 Estimated GFR (Non- 72.6 BUN/Creatinine Ratio 12.2 (10-20) Calcium Level 8.2 mg/dl (8.5-10.1) Magnesium Level 2.3 mg/dl (1.8-2.4) Total Bilirubin 0.3 mg/dl (0.2-1) Direct Bilirubin mg/dl (0-0.2) Aspartate Amino Transf (AST/SGOT) 44 U/L (15-37) Alanine Aminotransferase (ALT/SGPT) 51 U/L (12-78) Alkaline Phosphatase 112 U/L (45-117) Total Protein 6.5 gm/dl (6.4-8.2) Albumin 2.7 gm/dl (3.4-5.0) Lipase 178 U/L (73-393) Chemistry Specimen Hemolysis Urine Color DK YELLOW Urine Appearance CLOUDY (CLEAR) Urine pH 6.5 (4.5-7.5) Urine Specific [place] 1.033 (1.000-1.030) Urine Protein 2+ (NEG) Urine Glucose (UA) NEG (NEG) Urine Ketones TRACE (NEG) Urine Occult Blood 1+ (NEG) Urine Nitrite POS (NEG) Urine Bilirubin NEG (NEG) Urine Urobilinogen NEG (NEG) Urine Leukocyte Esterase LARGE (NEG) Urine WBC (Auto) >30 /hpf (0-5) Urine RBC (Auto) 5-10 /hpf (0-4) Urine Hyaline Casts (Auto) 1-5 /lpf (0-5) Urine Epithelial Cells (Auto) 0-5 /lpf (0-5) Urine Bacteria (Auto) 4+ (NEG) Urine Pathogenic Casts /lpf (0) Laboratory results reviewed by me Medications Administered Medications (Trade) Dose Ordered Sig/Idris Route Start Time Stop Time Status Last Admin Dose Admin Sodium Chloride 1,000 ml @ 999 mls/hr Q1H1M STAT IV 09/09/17 11:14 09/09/17 12:14 DC 09/09/17 11:14 999 MLS/HR Ceftriaxone Sodium (Rocephin Inj) 1 gm NOW STAT IV 09/09/17 12:53 09/09/17 12:54 DC 09/09/17 13:17 1 GM ECG Per My Interpretation Indication: other (fall) Rate (beats per minute): 93 Rhythm: normal sinus Findings: no acute ischemic change (however limited due to artifact), left axis deviation, other (poor baseline) ED Course 1104: The patient was evaluated in room A11. A complete history and physical exam was performed. 1337: I reevaluated the patient. He is doing well, and he is ready for discharge. Medical Decision I reviewed the patient's past medical history, medications, and the nursing notes as described above. Differential diagnosis: Etiologies such as metabolic, infection, hypo/hyperglycemia, electrolyte abnormalities, cardiac sources, intracerebral event, toxicologic, neurologic, as well as others were entertained. The patient is a 61-year-old gentleman with a past medical history of developmental delay who presents emergency department from his correction after having a unwitnessed fall in the setting of decreased activity per hpi. On arrival the patient is nonverbal at his baseline moving all extremities and following commands.. There is a 2 cm abrasion to the left forehead. UA positive for UTI. Labs otherwise unremarkable including WBC within normal limits. CT head negative. CT C-spine without any acute findings and otherwise degenerative changes. Patient was given IV dose of ceftriaxone and will discharge on oral regimen of Cedinir. Medication Reconcilliation Current Medication List: was personally reviewed by me Blood Pressure Screening Patient's blood pressure: Normal blood pressure Impression Primary Impression: Urinary tract infection Scribe Attestation The scribe's documentation has been prepared under my direction and personally reviewed by me in its entirety. I confirm that the note above accurately reflects all work, treatment, procedures, and medical decision making performed by me. Departure Information Dispostion Home / Self-Care Prescriptions Cefdinir (OMNICEF) 300 Mg Cap 300 MG PO Q12H for 10 Days, #20 CAP Prov: iPeter Tsai M.D. 09/09/17 Referrals Diana Nicole M.D. (PCP) Forms HOME CARE DOCUMENTATION FORM, IMPORTANT VISIT INFORMATION Patient Instructions My [facility], Urinary Tract Infecs Men Additional Instructions Please follow up with your primary care physician in the next week for re- evaluation. You have a urinary tract infection. Otherwise, your exam, EKG, chest xray, lab results, and CT scan did not show signs of an emergent condition at this time. Acetaminophen or ibuprofen for pain and fevers as needed. Cefdinir as directed. Drink plenty of fluids to ensure hydration. Return to the emergency department for worsening symptoms as described in the accompanying instructions.
--- NOTE | 2017-09-09 11:49 | DIAGNOSTIC IMAGING REPORT ---
CHEST ONE VIEW PORTABLE CLINICAL HISTORY: 61 years-old Male presenting with ABDOMINAL PAIN/GI. TECHNIQUE: Portable upright AP view of the chest was obtained. COMPARISON: 08/27/2016. FINDINGS: Cardiomediastinal silhouette normal. No focal opacity. No large effusion or pneumothorax. Osseous structures normal. Upper abdomen normal. IMPRESSION: 1. No acute cardiopulmonary disease. Electronically signed by: Manjit Kingsley M.D. 09/09/2017 11:48 AM Dictated Date/Time: 09/09/2017 11:45 AM
--- NOTE | 2017-09-09 11:53 | DIAGNOSTIC IMAGING REPORT ---
HEAD WITHOUT CONTRAST (CT) CLINICAL HISTORY: 61 years-old Male presenting with pain, brain lesions, fall. TECHNIQUE: Multidetector CT imaging of the head was performed without the use of intravenous contrast. IV contrast: None. A dose lowering technique was used consistent with the principles of ALARA (as low as reasonably achievable). COMPARISON: 08/19/2016. CT DOSE (mGy.cm): The estimated cumulative dose is 923.15. FINDINGS: Mixer Driver topogram: Unremarkable. Proportional ventricular and sulcal prominence, likely age-related parenchymal volume loss. Periventricular and subcortical white matter hypoattenuation, nonspecific but likely indicative of chronic small vessel ischemic change. No mass effect or midline shift. No hemorrhage or acute territorial infarct. No extra-axial fluid collection. Paranasal sinuses and mastoid air cells clear. Calvarium intact. IMPRESSION: 1. Chronic small vessel ischemic change. No acute intracranial abnormality. Electronically signed by: Manjit Kingsley M.D. 09/09/2017 11:52 AM Dictated Date/Time: 09/09/2017 11:48 AM
--- NOTE | 2017-09-09 11:59 | DIAGNOSTIC IMAGING REPORT ---
CERVICAL SPINE W/O CT DOSE: 923.15 mGy.cm CLINICAL HISTORY: 61 years-old Male with pain fall. Acute neck pain status post fall COMPARISON: CT cervical spine 02/05/2013. TECHNIQUE: Multiple axial CT images of the cervical spine were obtained without contrast. A dose lowering technique was utilized adhering to the principles of ALARA. FINDINGS: Mastoid air cells and middle ear cavities are clear. Mild mucoperiosteal thickening of the maxillary sinuses. No acute cervical spine fracture or subluxation is identified. Moderate to severe intervertebral disc space narrowing at C6-C7 is unchanged. 3 mm anterolisthesis C5 on C6 has slightly progressed from comparison, likely secondary to underlying severe facet arthrosis at this level. Moderate to severe facet arthropathy at C4-C5 and on the right at C2-C3. Moderate multilevel facet arthropathy is noted in addition to moderate multilevel endplate spurring. Degenerative changes overall have slightly increased from comparison. Evaluation of central canal and neuroforaminal stenosis is better conducted by MRI. Soft tissues are unremarkable. Lung apices are clear. IMPRESSION: 1. No acute fracture or subluxation identified. 2. Progressively worsened degenerative changes about the cervical spine as detailed above. The above report was generated using voice recognition software. It may contain grammatical, syntax or spelling errors. Electronically signed by: Dwight Chamberlain M.D. 09/09/2017 11:57 AM Dictated Date/Time: 09/09/2017 11:52 AM
[2017-09-09 12:14] LABS: ALBUMIN 2.7 gm/dl (3.4-5.0); CALCIUM 8.2 mg/dl (8.5-10.1); CREATININE 1.1 mg/dl (0.60-1.40); POTASSIUM 4.4 mmol/L (3.5-5.1); TOTAL PROTEIN 6.5 gm/dl (6.4-8.2)
[2017-09-09] MEDS ORDERED: ABL/5 PO (12:50)
[2017-09-09] MEDS ORDERED: ATV/1 PO ×2 (12:50)
[2017-09-09] MEDS ORDERED: CEFTRIAXONE SOD INJ 1 GM ADDVIAL IV STA (12:53)
[2017-09-09] MEDS ORDERED: CEFD300C2 PO (13:24)
[2017-09-09 13:52] VITALS: BP 115/70; PULSE 72; O2SAT 93
--- NOTE | 2017-09-11 12:44 | Pharmacy Progress Note ---
ED Pharmacist Culture FollowUp Date of Service: September 11, 2017. Patient was sent home with a prescription for Cefdinir 300mg PO BID x 10 days, which should cover the kleb pneumoniae growing from the patient's urine culture.
== END 2017-09-09 13:54 | disposition home or self-care (01) ==
LOC: EDBD 10:36 → C.EDA 10:38
DX: S00.81XA Abrasion of other part of head, initial encounter (principal); W19.XXXA Unspecified fall, initial encounter; N39.0 Urinary tract infection, site not specified; F79 Unspecified intellectual disabilities; Z79.82 Long term (current) use of aspirin; K75.9 Inflammatory liver disease, unspecified; E03.9 Hypothyroidism, unspecified; Z88.8 Allergy status to other drugs, medicaments and biological substances

== ENCOUNTER 2017-10-05 08:30 | Emergency (ER) | payer OTHER ==
[~2017-10-05] VITALS: Ht 152.4 cm; Wt 101.5 kg
[~2017-10-05 08:30] MED LIST changes: +ABL/5 PO
--- NOTE | 2017-10-05 08:36 | EMERGENCY ROOM VISIT NOTE ---
History Report prepared by Mary: Angie Howell Under the Supervision of: Dr. Nick Light M.D. First contact with patient: 08:30 Stated Complaint: OVERDOSE History of Present Illness The patient is a 61 year old male who presents to the Emergency Room with complaints of an overdose beginning this morning. As per EMS, the patient was given another person's medication instead of his own. They report the patient lives at [facility] and has a history of seizures and is currently taking Lamictal. They states he did not have a seizure in the ambulance. EMS brought a copy of the patient's medication list as well as a copy of the medication list for Ms. Ann (the patient at the facility whose medications he received). Patient received a dose of Ms. Banuelos AM medications, Lamictal 150 mg, carbamazepine 300 mg, aspirin 81 mg, Synthroid 100 mcg, Keppra 750 mg. Per the patient's medication list, he is supposed to receive Lamictal 200 mg, levothyroxine 75 mcg and aspirin 81 mg in the morning; thus the patient received an extra dose of carbamazepine and Keppra that was not supposed to be his. HPI and ROS limited due to the patient's condition. Source of History: patient, EMS History Limited By: other (patient's condition) Onset: this morning Position: head, other (upper and lower extremities) Quality: other (overdose) Review of Systems See HPI for pertinent positives and negatives. HPI and ROS limited due to the patient's baseline condition Past Medical & Surgical Medical Problems: (1) Dysphagia (2) Hepatitis (3) Hypothyroidism (4) Mental retardation (5) Pneumonia Family History Patient reports no known family medical history. Social History Smoking Status: Unknown if Ever Smoked Smokeless Tobacco Use: Unknown Housing Status: fdc Occupation Status: retired Current/Historical Medications Scheduled Aripiprazole (Abilify), 5 MG PO QAM Aspirin (Aspirin Chewable), 81 MG PO QAM Benztropine Mesylate (Benztropine Mesylate), 1 MG PO TID Docusate Sodium (Docusate Sodium), 100 MG PO BID Entecavir (Baraclude), 0.5 MG PO QAM Lamotrigine (Lamictal), 200 MG PO BID Levothyroxine Sodium (Synthroid), 75 MCG PO QAM Lorazepam (Ativan), 1 MG PO BID Lorazepam (Ativan), 0.5 MG PO HS Metoprolol Tartrate (Lopressor) (Lopressor), 25 MG PO BID Multiple Vitamin (Multivitamin), 1 TABLET PO QAM Nutritional Supplements (Boost), 1 CAN PO QAM Pantoprazole (Protonix), 40 MG PO BID Sennosides-Docusate Sodium (Senna S), 1 TAB PO BID Trazodone Hcl (Desyrel), 50 MG PO HS Scheduled PRN Acetaminophen (Tylenol 8 Hour Arthritis), 650 MG PO Q6H PRN for Fever or Headache Polyethylene Glycol 3350 (Miralax), 17 GM PO DAILY PRN for Constipation Allergies Coded Allergies: Haloperidol (Verified Allergy, Mild, UNK, 10/04/17) Loxapine (Verified Allergy, Mild, EXTRA PAROXYSMAL SYMPTOMS, 10/04/17) Thioridazine (Verified Allergy, Mild, ABNORMAL KIDNEY FUNCTION, 10/04/17) Clonazepam (Unverified Allergy, Unknown, LOSS OF MOTOR FUNCTION, STROKE LIKE SYMPTOMS, 10/04/17) Sulfamethoxazole w/Trimethoprim (Unverified Allergy, Unknown, UNSTEADY GAIT, 10/04/17) Zonisamide (Unverified Allergy, Unknown, UNKNOWN, 10/04/17) Diazepam (Verified Adverse Reaction, Mild, INEFFECTIVE, 10/04/17) Imipramine (Verified Adverse Reaction, Mild, INEFFECTIVE, 10/04/17) Risperidone (Verified Adverse Reaction, Mild, UNSTEADY, 10/04/17) Ondansetron (Verified Adverse Reaction, Unknown, LEANS TO ONE SIDE, ) Physical Exam Vital Signs Date Time Temp Pulse Resp B/P (MAP) Pulse Ox O2 Delivery O2 Flow Rate FiO2 10/05/17 09:22 80 18 133/79 95 Room Air 10/05/17 08:48 36.2 93 18 127/87 95 Room Air 10/05/17 08:44 82 Physical Exam Physical Exam GENERAL: He appears well-developed and well-nourished. He does not appear distressed. ____ HENT: Exam performed. Head: Normocephalic and atraumatic. Right Ear: External ear normal. No mastoid tenderness. Left Ear: External ear normal. No mastoid tenderness. Mouth/Throat: The oropharynx is clear and moist. No trismus in the jaw. No dental abscesses or uvula swelling. No oropharyngeal exudate or tonsillar abscesses. ____ EYES: Conjunctivae and EOM are normal. Pupils are equal, round, and reactive to light. Right eye exhibits no discharge. Left eye exhibits no discharge. No scleral icterus. ____ NECK: Normal range of motion. Neck supple. No JVD present. No spinous process tenderness present. No carotid bruit present. No rigidity. No tracheal deviation and normal range of motion present. No Brudzinski's sign and no Kernig 's sign noted. ____ CV: Normal rate, regular rhythm, normal heart sounds and intact distal pulses. There is no peripheral edema. Palpable radial pulses bue. ____ PULM/CHEST: Effort normal and breath sounds normal. No respiratory distress. No stridor. He has no wheezes. He has no rales. Chest Wall: He exhibits no tenderness. ____ ABD: The abdomen is soft. Bowel sounds are normal. He has no distension. No mass is present. There is no tenderness. There is no rebound, no guarding, no Reardon's sign and no tenderness at McBurney's point. Rovsig negative MUSC/SKEL: Normal range of motion. There is no peripheral edema, tenderness or deformity. LYMPH: No cervical adenopathy. ____ NEURO: He has normal strength. No cranial nerve deficit or sensory deficit. Medical Decision & Procedures Laboratory Results Test 10/05/17 08:38 Bedside Glucose 106 mg/dl (70-99) Laboratory results reviewed by me ECG Per My Interpretation Indication: other (overdose) Rate (beats per minute): 92 Rhythm: normal sinus Findings: other (NE, QTR, QTC within normal limits, no ST elevation or depression, baseline artifact due to the patients tremor) ED Course 0830: The patient was evaluated in room A12. A complete history and physical exam was performed. 0853: I discussed the patient's case with Poison Control and explained to them what happened, that he received another patient's medications including a dose of Keppra as well as carbamazepine that he has never taken before and was not supposed to receive. They stated there was no risk of toxic ingestion, overdose , or adverse effects. No labs need to be done and the patient can be safely discharged back to the [facility]. Medical Decision I discussed the patient's case with Poison Control and explained to them what happened, that he received another patient's medications including a dose of Keppra as well as carbamazepine that he has never taken before and was not supposed to receive. They stated there was no risk of toxic ingestion, overdose , or adverse effects. No labs need to be done and the patient can be safely discharged back to the [facility]. Medication Reconcilliation Current Medication List: was personally reviewed by me Blood Pressure Screening Patient's blood pressure: Normal blood pressure Blood pressure disposition: Did not require urgent referral Consults Time Called: 0852 Consulting Physician: Poison Control Returned Call: 0853 I discussed the patient's case with Poison Control. They stated there was no risk of toxic ingestion, overdose, or adverse effects. No labs need to be done and the patient can be safely discharged back to the [facility]. Impression Primary Impression: Accidental drug ingestion Scribe Attestation The scribe's documentation has been prepared under my direction and personally reviewed by me in its entirety. I confirm that the note above accurately reflects all work, treatment, procedures, and medical decision making performed by me. The chart was completed utilizing [employer] voice recognition software. Grammatical errors, random word insertions, pronoun errors, and incomplete sentences are an occasional consequence of this system due to software limitations, ambient noise, and hardware issues. Any formal questions or concerns about the content, text, or information contained within the body of this dictation should be directly addressed to the physician for clarification. Departure Information Dispostion Home / Self-Care Forms HOME CARE DOCUMENTATION FORM, IMPORTANT VISIT INFORMATION, WORK / SCHOOL INSTRUCTIONS Problem Qualifiers Primary Impression: Accidental drug ingestion Encounter type: initial encounter Qualified Codes: T50.901A - Poisoning by unspecified drugs, medicaments and biological substances, accidental ( unintentional), initial encounter
[2017-10-05 08:48] VITALS: TEMP 36.2; Ht 152.4 cm; Wt 101.5 kg
[2017-10-05 09:22] VITALS: BP 133/79; PULSE 80; O2SAT 95
== END 2017-10-05 09:24 | disposition other institution (70) ==
LOC: EDBD 08:30 → C.EDA 08:33
DX: T42.1X1A Poisoning by iminostilbenes, accidental (unintentional), initial encounter (principal); T42.71XA Poisoning by unspecified antiepileptic and sedative-hypnotic drugs, accidental (unintentional), initial encounter; F79 Unspecified intellectual disabilities; Z79.82 Long term (current) use of aspirin; Z79.899 Other long term (current) drug therapy; Z88.8 Allergy status to other drugs, medicaments and biological substances; Z88.2 Allergy status to sulfonamides

== ENCOUNTER 2022-01-06 20:28 | Inpatient (IN) ==
[2022-01-06] MEDS ORDERED: ALBUT/IPRATROP 3MG/0.5MG NEB 3 ML VIAL NEB STA (20:39)
[2022-01-06] MEDS ORDERED: FAMOTIDINE 20MG IV PUSH 20 MG/5 ML SYR IV STA (20:39)
[2022-01-06] MEDS ORDERED: PROMETHAZINE 25 MG/51 ML BAG IV STA (20:39)
[2022-01-06] MEDS ORDERED: SODIUM CHLORIDE 0.9% 500 ML IV ONE (20:44)
--- NOTE | 2022-01-06 20:48 | Emergency Department Note ---
Impression & Plan COVID-19, Hypoxia, Aspiration into respiratory tract ED Provider Note NAME: MARLENI FORD AGE: 66 SEX: M ARRIVES VIA: Ambulance INFORMANT: prison staff, EMS ED PROVIDER(S): Pieter Tsai MD CHIEF COMPLAINT: Aspiration PLAN: Disposition: Admit MEDICAL DECISION MAKING: The patient is a 66-year-old gentleman with a past medical history of intellectual delay, hypertension, hypothyroidism, chronic aspiration, parkinsonism, who presents to the emergency department from his care home with concern for aspiration after having dinner and subsequently in the [place] having a coughing fit that persisted leading to emesis. Per EMS report he was in the mid 70s on room air placed on nonrebreather improved to mid 90s and now low to mid 90s on nasal cannula. They do report he has had a mild cough over the past several days but otherwise. Prior to the episode today staff denies any fevers, chills, nausea, vomiting, diarrhea or urinary symptoms. The patient is minimally to nonverbal at baseline. On arrival, the patient is uncomfortable but no acute distress, afebrile stable vital signs. He will will have episodes of coughing that is intractable requiring suction at the bedside by RN. He appears clinically dry. Lungs with scant rhonchi bilaterally. EKG without overt acute ischemia. CXR demonstrates left basilar consolidation with small left pleural effusion suggestive of pneumonia/aspiration pneumonitis. WBC 11.2K nonspecific. H/H 30.9/43.7 without recent values for comparison. Chemistry without metabolic acidosis. BUN/creatinine> 20 consistent with patient's clinically dry appearance. Electrolytes and LFTs unremarkable. High- sensitivity troponin 5.7, within normal limits. BNP 111, nonspecific. COVID-19 PCR was positive. Upon reevaluation the patient was somewhat improved following IV fluid hydration, famotidine, Phenergan, DuoNeb. O2 saturation however low 90s on room air. Given the patient's intermittent hypoxia in the setting of his aspiration risk now in the setting of COVID-19 infection reasonable to admit the patient for further management. Staff member at the bedside agrees with this plan. Patient was ordered for dexamethasone. ABX per admitting team. Given mildly elevated BNP and history of volume overload IV fluid hydration administered cautiously as patient is hemodynamically stable. Case was discussed with Dr. Wong, [facility] hospitalist, who will evaluate the patient for admission. Triage Nursing notes reviewed and agree them. Prior medical records reviewed Vital Signs: reviewed and remarkable for tachypnea. Differential diagnosis: Reactive airway disease, pneumonia, pneumothorax, COPD, CHF, infections, cardiac ischemia, pulmonary embolism, musculoskeletal, gastrointestinal, as well as other pathologies. ER treatment provided: See below. Diagnostics interpreted by me: ECG: Normal sinus rhythm, 97 bpm, no ectopy, no overt ST elevation or depression, QTC 495, QRS 90. Cardiac Monitoring: An order for continuous cardiac monitoring was placed and demonstrated Normal sinus rhythm, 97 bpm, no ectopy. Laboratory studies: See below Imaging studies: See below Consultation(s): Case was discussed with Dr. Wong, [facility] hospitalist, who will evaluate the patient for admission. HPI: The patient is a 66-year-old gentleman with a past medical history of intellectual delay, hypertension, hypothyroidism, chronic aspiration, parkinsonism, who presents to the emergency department from his care home with concern for aspiration after having dinner and subsequently in the [place] having a coughing fit that persisted leading to emesis. Per EMS report he was in the mid 70s on room air placed on nonrebreather improved to mid 90s and now low to mid 90s on nasal cannula. They do report he has had a mild cough over the past several days but otherwise. Prior to the episode today staff denies any fevers, chills, nausea, vomiting, diarrhea or urinary symptoms. The patient is minimally to nonverbal at baseline. ROS: See above HPI for pertinent positives & negatives. A total of 10 systems reviewed and were otherwise negative. VITALS:See Below PHYSICAL EXAMINATION: GENERAL: Awake, alert, acute on chronically ill-appearing, in no distress HENT: Normocephalic, atraumatic. Oropharynx with dry mucous membranes and otherwise unremarkable. EYES: Normal conjunctiva. Sclera non-icteric. NECK: Supple. No nuchal rigidity. FROM. No JVD. RESPIRATORY: Scant rhonchi bilaterally. CARDIAC: Regular rate, normal rhythm. Extremities warm and well perfused. Pulses equal. ABDOMEN: Soft, non-distended. No tenderness to palpation. No rebound or guarding. No masses. RECTAL: Deferred. MUSCULOSKELETAL: Chest examination reveals no tenderness. The back is symmetrical on inspection without obvious abnormality. There is no CVA tenderness to palpation. No joint edema. LOWER EXTREMITIES: Calves are equal size bilaterally and non-tender. No edema. No discoloration. NEURO: No focal sensory or motor deficits noted. Nonverbal. SKIN: No rash or jaundice noted. Pieter Tsai MD Past Med/Surg History Medical History Dysphagia Intellectual disability Nonverbal Sepsis Surgical History No pertinent past surgical history Family History Other No pertinent family history Social History Smoking Status: Unknown if ever smoked Hx Alcohol Use: No Hx Substance Use: No Preferred Language: Maltese Communication Ability: Unable Top Inventory Control Executive Required: No Beliefs That Will Affect Care: None Current Living Situation: Boarding Home Current Living Situation Comment: [facility] Feels Safe at Home: Yes Assistive Devices: None Allergies Allergies Allergy/AdvReac Type Severity Reaction Status Date / Time cefdinir [From Omnicef] Allergy Intermediate ELEVATES Verified 03/01/21 21:26 LFT'S clonazepam Allergy Intermediate LOSS OF Verified 03/01/21 21:26 MOTOR FUNCTION, STROKE LIKE SYMPTOMS sulfamethoxazole Allergy Intermediate UNSTEADY Verified 03/01/21 21:26 GAIT, INCREASED HALLUCINATIONS, PROFUSE SWEATING trimethoprim Allergy Intermediate UNSTEADY Verified 03/01/21 21:26 GAIT, INCREASED HALLUCINATIONS, PROFUSE SWEATING. zonisamide Allergy Intermediate LEANS TO Verified 03/01/21 21:26 ONE SIDE, NEUROLOGICAL SIDE EFFECT. haloperidol Allergy Mild EXTRA Verified 03/01/21 21:26 PYRAMIDAL SYMPTOMS loxapine Allergy Mild EXTRA Verified 03/01/21 21:26 PAROXYSMAL SYMPTOMS thioridazine Allergy Mild ABNORMAL Verified 03/01/21 21:26 KIDNEY FUNCTION diazepam AdvReac Mild INEFFECTIVE Verified 03/01/21 21:26 imipramine AdvReac Mild INEFFECTIVE Verified 03/01/21 21:26 risperidone AdvReac Mild UNSTEADY Verified 03/01/21 21:26 ondansetron AdvReac Unknown LEANS TO Verified 03/01/21 21:26 ONE SIDE Home Meds Home Medications Medication Instructions Recorded Confirmed aripiprazole 5 mg tablet 5 mg PO DAILY 02/09/18 01/06/22 benztropine 1 mg tablet 1 mg PO TID 02/09/18 01/06/22 entecavir 0.5 mg tablet (Baraclude) 0.5 mg PO DAILYBB 02/09/18 01/06/22 lamotrigine 200 mg tablet 200 mg PO BID 02/09/18 01/06/22 levothyroxine 75 mcg tablet 75 mcg PO DAILY 02/09/18 01/06/22 lorazepam 1 mg tablet 1 mg PO AMPM 02/09/18 01/06/22 metoprolol tartrate 25 mg tablet 12.5 mg PO BID 02/09/18 01/06/22 finasteride 5 mg tablet 5 mg PO DAILY 02/24/19 01/06/22 carbidopa 25 mg-levodopa 100 mg 1 tab PO TID 08/03/20 01/06/22 tablet omeprazole 20 mg tablet,delayed 20 mg PO BID 03/01/21 01/06/22 release sennosides 8.6 mg tablet 8.6 mg PO BID 03/01/21 01/06/22 trazodone 50 mg tablet 100 mg PO HS 03/01/21 01/06/22 docusate sodium 50 mg/5 mL oral 10 ml PO DAILY 07/30/21 01/06/22 liquid (Silace) aspirin 81 mg chewable tablet 81 mg PO DAILY 01/06/22 01/06/22 bisacodyl 10 mg rectal suppository 10 mg SD UD PRN no BM for 3 days 01/06/22 01/06/22 dextromethorphan-guaifenesin 10 10 ml PO Q4H PRN Cough 01/06/22 01/06/22 mg-100 mg/5 mL oral syrup magnesium hydroxide 400 mg/5 mL 30 ml PO UD PRN no BM in 2 days 01/06/22 01/06/22 oral suspension (Milk of Magnesia) multivitamin with folic acid 400 1 tab PO DAILY 01/06/22 01/06/22 mcg tablet (Daily-Conrad (with folic acid)) polyethylene glycol 3350 17 17 g PO BID 01/06/22 01/06/22 gram/dose oral powder (Miralax) sodium phosphates 19 gram-7 118 ml SD UD PRN no BM in 4 days 01/06/22 01/06/22 gram/118 mL enema (Fleet Enema) Results & Data (ED) Vital Signs Vital Signs - 24 hr 01/06/22 20:40 01/06/22 20:58 01/06/22 20:58 Temperature 36.6 C Temperature Source Oral Pulse Rate 91 H Pulse Rate [Left Apical] Respiratory Rate 26 H 26 H Respiratory Effort / Characteristics Non-Labored Respiratory Depth Normal Blood Pressure 142/68 H Blood Pressure [Right Arm] Blood Pressure Mean 92 Blood Pressure Mean [Right Arm] Blood Pressure Position Lying Pulse Oximetry 94 93 94 Oxygen Delivery Method Room Air Room Air Room Air Sepsis Recent Fever Within 48 Hours No Sepsis New/Unexplained Change in Mental Status No Sepsis Action Taken by Nursing No Action Required 01/06/22 23:19 01/07/22 01:00 Temperature Temperature Source Pulse Rate Pulse Rate [Left Apical] 78 57 L Respiratory Rate 20 20 Respiratory Effort / Characteristics Non-Labored Non-Labored Respiratory Depth Normal Normal Blood Pressure Blood Pressure [Right Arm] 142/68 H 121/74 Blood Pressure Mean Blood Pressure Mean [Right Arm] 92 89 Blood Pressure Position Pulse Oximetry 92 94 Oxygen Delivery Method Room Air Room Air Sepsis Recent Fever Within 48 Hours Sepsis New/Unexplained Change in Mental Status Sepsis Action Taken by Nursing Laboratory Data Result diagrams: 01/07/22 05:24 01/07/22 05:24 Lab Results 01/06/22 01/06/22 01/06/22 Range/Units 20:39 20:39 20:52 WBC 11.28 H (4.8-10.8) K/ul RBC 4.87 (4.63-6.08) M/uL Hgb 13.9 L (14.0-18.0) g/dl Hct 43.7 (40.1-51.0) % MCV 89.7 (80.0-100.0) fL MCH 28.5 (25.0-34.0) pg MCHC 31.8 L (32.0-36.0) g/dL RDW Std Deviation 44.2 (36.4-46.3) fL RDW Coeff of Marbin 13.4 (11.5-14.5) % Plt Count 316 (130-400) K/uL MPV 8.8 L (9.4-12.4) fL Immature Gran % (Auto) 0.6 % Neut % (Auto) 74.6 % Lymph % (Auto) 13.7 % Rosebud % (Auto) 8.5 % Eos % (Auto) 2.0 % Baso % (Auto) 0.6 % Neut # (Auto) 8.42 H (1.4-6.5) K/uL Lymph # (Auto) 1.54 (1.2-3.4) K/uL Rosebud # (Auto) 0.96 H (0.24-0.82) K/uL Eos # (Auto) 0.22 (0-0.50) K/uL Baso # (Auto) 0.07 (0-0.2) K/uL Immature Gran # (Auto) 0.07 H (0.00-0.02) K/uL Sodium 141 (136-145) mmol/L Potassium 4.3 (3.5-5.1) mmol/L Chloride 106 (98-107) mmol/L Carbon Dioxide 26 (21-32) mmol/L Anion Gap 9 (3-11) BUN 20 (6-23) mg/dl Creatinine 0.98 (0.6-1.4) mg/dl Est Cr Clr Drug Dosing Not Reportable Est GFR ( Amer) 93.4 ml/min Est GFR (Non-Af Amer) 80.6 ml/min BUN/Creatinine Ratio 20.4 H (10-20) Glucose 99 (70-99(Fasting)) mg/dl Lactate (0.4-2.0) mmol/L Calcium 9.1 (8.5-10.1) mg/dl Phosphorus 4.2 (2.5-4.9) mg/dl Magnesium 2.3 (1.7-2.4) mg/dl Total Bilirubin 0.4 (0.2-1.0) mg/dl AST 17 (13-39) U/L ALT 6 L (7-52) U/L Alkaline Phosphatase 90 (34-104) U/L Troponin I High Sens 5.7 (0-20) pg/ml B-Natriuretic Peptide 111 H (0-100) pg/ml Total Protein 6.9 (6.0-8.3) gm/dl Albumin 3.9 (3.4-5.0) gm/dl Globulin 3.0 (2.5-4.0) gm/dl Albumin/Globulin Ratio 1.3 (0.9-2) Lipase 42 (11-82) U/L SARS-CoV-2 (PCR) (Negative) 01/06/22 01/07/22 Range/Units 20:56 00:28 WBC (4.8-10.8) K/ul RBC (4.63-6.08) M/uL Hgb (14.0-18.0) g/dl Hct (40.1-51.0) % MCV (80.0-100.0) fL MCH (25.0-34.0) pg MCHC (32.0-36.0) g/dL RDW Std Deviation (36.4-46.3) fL RDW Coeff of Marbin (11.5-14.5) % Plt Count (130-400) K/uL MPV (9.4-12.4) fL Immature Gran % (Auto) % Neut % (Auto) % Lymph % (Auto) % Rosebud % (Auto) % Eos % (Auto) % Baso % (Auto) % Neut # (Auto) (1.4-6.5) K/uL Lymph # (Auto) (1.2-3.4) K/uL Rosebud # (Auto) (0.24-0.82) K/uL Eos # (Auto) (0-0.50) K/uL Baso # (Auto) (0-0.2) K/uL Immature Gran # (Auto) (0.00-0.02) K/uL Sodium (136-145) mmol/L Potassium (3.5-5.1) mmol/L Chloride (98-107) mmol/L Carbon Dioxide (21-32) mmol/L Anion Gap (3-11) BUN (6-23) mg/dl Creatinine (0.6-1.4) mg/dl Est Cr Clr Drug Dosing Est GFR ( Amer) ml/min Est GFR (Non-Af Amer) ml/min BUN/Creatinine Ratio (10-20) Glucose (70-99(Fasting)) mg/dl Lactate 0.4 (0.4-2.0) mmol/L Calcium (8.5-10.1) mg/dl Phosphorus (2.5-4.9) mg/dl Magnesium (1.7-2.4) mg/dl Total Bilirubin (0.2-1.0) mg/dl AST (13-39) U/L ALT (7-52) U/L Alkaline Phosphatase (34-104) U/L Troponin I High Sens (0-20) pg/ml B-Natriuretic Peptide (0-100) pg/ml Total Protein (6.0-8.3) gm/dl Albumin (3.4-5.0) gm/dl Globulin (2.5-4.0) gm/dl Albumin/Globulin Ratio (0.9-2) Lipase (11-82) U/L SARS-CoV-2 (PCR) POSITIVE A* (Negative) Administered Medications Ampicillin Sodium/Sulbactam Sodium 3,000 mg/ Sodium Chloride 108 mls @ 200 mls/hr IV Q6H JOAQUIN Stop: 01/14/22 05:59 Last Infusion: 01/07/22 06:29 Dose: 0 mls/hr Documented By: Admin: 01/07/22 05:50 Dose: 200 mls/hr Documented By: NASIM Levothyroxine Sodium (Levothyroxine Sodium 75 Mcg Tablet) 75 mcg PO DAILYBB JOAQUIN Stop: 02/06/22 06:29 Last Admin: 01/07/22 05:49 Dose: 75 mcg Documented By: NASIM Lorazepam (Lorazepam 1 Mg Tab) 1 mg PO BID JOAQUIN Stop: 02/06/22 02:09 Last Admin: 01/07/22 03:33 Dose: 1 mg Documented By: NASIM Discontinued Medications Albuterol (Albut/Ipratrop 3mg/0.5mg Neb 3 Ml Vial) 3 ml NEB NOW STA; Protocol Stop: 01/06/22 20:40 Last Admin: 01/06/22 21:00 Dose: 3 ml Documented By: GUSTAVO Dexamethasone Sodium Phosphate (DexamethasonePf 10 Mg/Ml Vial) 10 mg IV NOW ONE Stop: 01/06/22 23:54 Last Admin: 01/07/22 00:26 Dose: 10 mg Documented By: RUBY Famotidine (Pepcid 20mg Iv Push) 20 mg in 5 mls @ 2.5 mls/min IV NOW STA Stop: 01/06/22 20:40 Last Admin: 01/06/22 21:00 Dose: 2.5 mls/min Documented By: GUSTAVO Promethazine HCl (Phenergan) 25 mg in 51 mls @ 204 mls/hr IV NOW STA Stop: 01/06/22 20:53 Last Infusion: 01/06/22 21:58 Dose: 0 mls/hr Documented By: Admin: 01/06/22 21:00 Dose: 204 mls/hr Documented By: GUSTAVO Sodium Chloride (Nss) 500 mls @ 999 mls/hr IV .Q31M ONE Stop: 01/06/22 21:14 Last Infusion: 01/06/22 21:58 Dose: 0 mls/hr Documented By: Admin: 01/06/22 21:31 Dose: 999 mls/hr Documented By: RAJ Ampicillin Sodium/Sulbactam Sodium 3,000 mg/ Sodium Chloride 108 mls @ 200 mls/hr IV NOW STA Stop: 01/07/22 00:33 Last Infusion: 01/07/22 01:07 Dose: 0 mls/hr Documented By: Admin: 01/07/22 00:32 Dose: 200 mls/hr Documented By: TW Imaging Data Radiologist's Impression: Chest X-Ray 01/06/22 20:39 SINGLE VIEW CHEST CLINICAL HISTORY: Cough. FINDINGS: An AP, portable, upright chest radiograph is compared to study dated 08/06/2020. The examination is degraded by portable technique and patient rotation. The cardiomediastinal silhouette is unremarkable noting atherosclerotic calcification of the thoracic aorta. There is left basilar consolidation and a small left pleural effusion. Atelectasis is noted at the right lung base. No pneumothorax is seen. The skeletal structures are osteopenic. The bony thorax is grossly intact. IMPRESSION: There is left basilar consolidation and a small left pleural effusion. The appearance is typical for pneumonia/aspiration pneumonitis. Clinical correlation will be required and radiographic follow-up to resolution is recommended. ACT 112: Negative or not required by law. Electronically signed by: Marty Ram M.D. 01/06/2022 10:57 PM Discharge Plan Visit Data Chief Complaint: Shortness of Breath/Dyspnea ED Provider: Pieter Tsai Discharge Problem: COVID-19, Hypoxia, Aspiration into respiratory tract Patient Disposition: Admitted As Inpatient Discharge Instructions Interventions: ED Discharge Assessment Last Done: 01/07/22 02:18
[2022-01-06 21:33] LABS: Basophils # (auto) 0.07 K/uL (0-0.2); Basophils % (auto) 0.6 %; Eosinophils # (auto) 0.22 K/uL (0-0.50); Hematocrit (blood only) 43.7 % (40.1-51.0); Hemoglobin 13.9 g/dl (14.0-18.0); Immature Granulocytes # (auto) 0.07 K/uL (0.00-0.02); Immature Granulocytes % (auto) 0.6 %; Lymphocytes # (auto) 1.54 K/uL (1.2-3.4); Lymphocytes % (auto) 13.7 %; Mean Corpuscular Hemoglobin 28.5 pg (25.0-34.0); Mean Corpuscular Hgb Conc 31.8 g/dL (32.0-36.0); Mean Corpuscular Volume 89.7 fL (80.0-100.0); Mean Platelet Volume 8.8 fL (9.4-12.4); Monocytes # (auto) 0.96 K/uL (0.24-0.82); Monocytes % (auto) 8.5 %; Neutrophils # (auto) 8.42 K/uL (1.4-6.5); Neutrophils % (auto) 74.6 %; Platelet Count 316 K/uL (130-400); RDW Coefficient of Variation 13.4 % (11.5-14.5); RDW Standard Deviation 44.2 fL (36.4-46.3); Red Blood Count 4.87 M/uL (4.63-6.08); White Blood Count 11.28 K/ul (4.8-10.8)
[2022-01-06 21:44] LABS: Troponin I High Sensitivity 5.7 pg/ml (0-20)
[2022-01-06 21:45] LABS: Alanine Aminotransferase 6 U/L (7-52); Albumin Globulin Ratio 1.3 (0.9-2); Albumin Level 3.9 gm/dl (3.4-5.0); Alkaline Phosphatase 90 U/L (34-104); Anion Gap 9 (3-11); Aspartate Aminotransferase 17 U/L (13-39); BUN Creatinine Ratio 20.4 (10-20); Bilirubin,Total 0.4 mg/dl (0.2-1.0); Blood Urea Nitrogen 20 mg/dl (6-23); Calcium 9.1 mg/dl (8.5-10.1); Carbon Dioxide 26 mmol/L (21-32); Chloride 106 mmol/L (98-107); Est GFR (African American) 93.4 ml/min; Est GFR (Non-African American) 80.6 ml/min; Glucose 99 mg/dl (70-99(Fasting)); Lipase 42 U/L (11-82); Magnesium 2.3 mg/dl (1.7-2.4); Phosphorus 4.2 mg/dl (2.5-4.9); Potassium 4.3 mmol/L (3.5-5.1); Sodium 141 mmol/L (136-145); Total Protein 6.9 gm/dl (6.0-8.3)
--- NOTE | 2022-01-06 22:59 | XRay Report ---
SINGLE VIEW CHEST CLINICAL HISTORY: Cough. FINDINGS: An AP, portable, upright chest radiograph is compared to study dated 08/06/2020. The examina tion is degraded by portable technique and patient rotation. The cardiomediastinal silhouette is unr emarkable noting atherosclerotic calcification of the thoracic aorta. There is left basilar consolida tion and a small left pleural effusion. Atelectasis is noted at the right lung base. No pneumothorax is seen. The skeletal structures are osteopenic. The bony thorax is grossly intact. IMPRESSION: There is left basilar consolidation and a small left pleural effusion. The appearance is typical for pneumonia/aspiration pneumonitis. Clinical correlation will be required and radiographic follow-up to resolution is recommended. ACT 112: Negative or not required by law. Electronically signed by: Marty Ram M.D. 01/06/2022 10:57 PM
[2022-01-06] MEDS ORDERED: dexAMETHasone**PF** 10 MG/ML VIAL IV ONE (23:53)
[2022-01-07] MEDS ORDERED: AMPICILLIN/SULBACTAM SOD 3,000 MG in 0.9 % SODIUM CHLORIDE 100 ML IV STA (00:01)
--- NOTE | 2022-01-07 01:13 | History & Physical Report ---
Date of Service January 07, 2022 Assessment & Plan (1) SOB (shortness of breath): Plan: O2 sats of 70s at home Significant improvement post EMS/ER intervention Lowest O2 sats at the ER 92 on room air Multifactorial: Aspiration pneumonia, hx dysphagia, aspiration risk (past history PEG tube placement which patient had repeatedly pulled out) COVID-19 illness Possible sepsis hx intellectual impairment Parkinson's disease/seizure disorder, at baseline BPH chronic hepatitis B on Entecavir. Stable as of recent outpatient [facility] Medical telemetry CS, Unasyn for aspiration pneumonia Decadron course for severe COVID-19 pneumonia on the basis of O2 sats less than 94 on room air Nebs as needed Pulmonary consult if without improvement Aspiration precautions, swallow eval DVT prophylaxis. Heparin subcu Full code for now as per guardian, Ms. Xiomara Kim. (contact #[phone]) Patient DNR status from 2017 [facility] discharge documentation relayed to Ms. Kim. She will look up any existing directives from patient's long term residence and will update morning provider accordingly. Text document was generated using [employer] voice recognition software. It may contain grammatical or spelling errors. Kindly contact undersigned for clarification of any documentation item in question. History of Present Illness Chief Complaint: Vomiting, cough, hypoxemia Primary Care Provider: Diana Nicole MD History obtained from patient caregiver and records. Unable to obtain history from patient secondary to intellectual impairment. Medical history significant for intellectual impairment, aspiration risk/dysphagia, Parkinson's disease, seizure disorder, BPH, GERD, chronic hepatitis B on Entecavir. Last confinement 2017 for sepsis secondary to UTI. Few days history of cough symptoms are prominent on eating at long term. No fever, no chills. No shortness of breath. Patient tends to eat fast as per caregiver. Home COVID-19 test was negative as per guardian. Patient completed COVID-19 vaccination. Patient seen at PCPs office 2 days ago. Patient encouraged to eat slowly. Consideration for referral to speech pathologist as per note. Worsening coughing fit at home. Subsequent emesis and respiratory distress. O2 sats noted to be 70s on room air upon EMS arrival. Patient put on nonrebreather mask. Patient received Decadron and neb treatment at the ER. Patient looking much better as per caregiver. Medical History as above Surgical History : PEG tube placement Family History : Could not be obtained due to intellectual impairment Personal/Social history : Non-smoker, no EtOH intake, long term resident Allergies Allergy/AdvReac Type Severity Reaction Status Date / Time cefdinir [From Omnicef] Allergy Intermediate ELEVATES Verified 03/01/21 21:26 LFT'S clonazepam Allergy Intermediate LOSS OF Verified 03/01/21 21:26 MOTOR FUNCTION, STROKE LIKE SYMPTOMS sulfamethoxazole Allergy Intermediate UNSTEADY Verified 03/01/21 21:26 GAIT, INCREASED HALLUCINATIONS, PROFUSE SWEATING trimethoprim Allergy Intermediate UNSTEADY Verified 03/01/21 21:26 GAIT, INCREASED HALLUCINATIONS, PROFUSE SWEATING. zonisamide Allergy Intermediate LEANS TO Verified 03/01/21 21:26 ONE SIDE, NEUROLOGICAL SIDE EFFECT. haloperidol Allergy Mild EXTRA Verified 03/01/21 21:26 PYRAMIDAL SYMPTOMS loxapine Allergy Mild EXTRA Verified 03/01/21 21:26 PAROXYSMAL SYMPTOMS thioridazine Allergy Mild ABNORMAL Verified 03/01/21 21:26 KIDNEY FUNCTION diazepam AdvReac Mild INEFFECTIVE Verified 03/01/21 21:26 imipramine AdvReac Mild INEFFECTIVE Verified 03/01/21 21:26 risperidone AdvReac Mild UNSTEADY Verified 03/01/21 21:26 ondansetron AdvReac Unknown LEANS TO Verified 03/01/21 21:26 ONE SIDE Home Medications Medication Instructions Recorded Confirmed Type aripiprazole 5 mg tablet 5 mg PO DAILY 02/09/18 01/06/22 History benztropine 1 mg tablet 1 mg PO TID 02/09/18 01/06/22 History entecavir 0.5 mg tablet (Baraclude) 0.5 mg PO DAILYBB 02/09/18 01/06/22 History lamotrigine 200 mg tablet 200 mg PO BID 02/09/18 01/06/22 History levothyroxine 75 mcg tablet 75 mcg PO DAILY 02/09/18 01/06/22 History lorazepam 1 mg tablet 1 mg PO AMPM 02/09/18 01/06/22 History metoprolol tartrate 25 mg tablet 12.5 mg PO BID 02/09/18 01/06/22 History finasteride 5 mg tablet 5 mg PO DAILY 02/24/19 01/06/22 History carbidopa 25 mg-levodopa 100 mg 1 tab PO TID 08/03/20 01/06/22 History tablet omeprazole 20 mg tablet,delayed 20 mg PO BID 03/01/21 01/06/22 History release sennosides 8.6 mg tablet 8.6 mg PO BID 03/01/21 01/06/22 History trazodone 50 mg tablet 100 mg PO HS 03/01/21 01/06/22 History docusate sodium 50 mg/5 mL oral 10 ml PO DAILY 07/30/21 01/06/22 History liquid (Silace) aspirin 81 mg chewable tablet 81 mg PO DAILY 01/06/22 01/06/22 History bisacodyl 10 mg rectal suppository 10 mg LA UD PRN no BM for 3 days 01/06/22 01/06/22 History dextromethorphan-guaifenesin 10 10 ml PO Q4H PRN Cough 01/06/22 01/06/22 History mg-100 mg/5 mL oral syrup magnesium hydroxide 400 mg/5 mL 30 ml PO UD PRN no BM in 2 days 01/06/22 01/06/22 History oral suspension (Milk of Magnesia) multivitamin with folic acid 400 1 tab PO DAILY 01/06/22 01/06/22 History mcg tablet (Daily-Conrad (with folic acid)) polyethylene glycol 3350 17 17 g PO BID 01/06/22 01/06/22 History gram/dose oral powder (Miralax) sodium phosphates 19 gram-7 118 ml LA UD PRN no BM in 4 days 01/06/22 01/06/22 History gram/118 mL enema (Fleet Enema) Past Med/Surg History Medical History Dysphagia Intellectual disability Nonverbal Sepsis Surgical History No pertinent past surgical history Family History Other No pertinent family history Social History Smoking Status: Unknown if ever smoked Hx Alcohol Use: No Hx Substance Use: No Preferred Language: Welsh Communication Ability: Unable [employer] Gauger Required: No Beliefs That Will Affect Care: None Current Living Situation: Boarding Home Current Living Situation Comment: Skills Feels Safe at Home: Yes Assistive Devices: None Review of Systems Review of Systems: Could not be reliably obtained secondary to intellectual impairment Physical Exam Physical Exam: GENERAL: uncomfortable, underweight/frail looking, no respiratory distress SKIN: Normal color, warm HEENT: Morales-Sanchez palpebral conjunctivae, no ptosis, dry buccal mucosa NECK : Supple, no tenderness CHEST : Decreased breath sounds, occasional expiratory wheezes, no tenderness HEART : RRR, no obvious murmurs ABDOMEN: no distention, nontender EXTREMITIES : No LE swelling/tenderness, no other conspicuous deformities noted NEUROLOGIC : incoherent, no facial asymmetry, episodic tongue thrusting, somewhat restless Results & Data Results & Data ([facility]) Vital Signs (Past 12 Hours) Vital Signs Temp Pulse Pulse Resp BP BP Pulse Ox 01/06/22 23:19 78 20 142/68 H 92 01/06/22 20:58 26 H 94 01/06/22 20:58 93 01/06/22 20:40 36.6 C 91 H 26 H 142/68 H 94 O2 Del Method 01/06/22 23:19 Room Air 01/06/22 20:58 Room Air 01/06/22 20:58 Room Air 01/06/22 20:40 Room Air Laboratory Results Laboratory Results WBC 11.28 K/ul (4.8-10.8) H 01/06/22 20:39 RBC 4.87 M/uL (4.63-6.08) 01/06/22 20:39 Hgb 13.9 g/dl (14.0-18.0) L 01/06/22 20:39 Hct 43.7 % (40.1-51.0) 01/06/22 20:39 MCV 89.7 fL (80.0-100.0) 01/06/22 20:39 MCH 28.5 pg (25.0-34.0) 01/06/22 20:39 MCHC 31.8 g/dL (32.0-36.0) L 01/06/22 20:39 RDW Std Deviation 44.2 fL (36.4-46.3) 01/06/22 20:39 RDW Coeff of Marbin 13.4 % (11.5-14.5) 01/06/22 20:39 Plt Count 316 K/uL (130-400) 01/06/22 20:39 MPV 8.8 fL (9.4-12.4) L 01/06/22 20:39 Immature Gran % (Auto) 0.6 % 01/06/22 20:39 Neut % (Auto) 74.6 % 01/06/22 20:39 Lymph % (Auto) 13.7 % 01/06/22 20:39 [place] % (Auto) 8.5 % 01/06/22 20:39 Eos % (Auto) 2.0 % 01/06/22 20:39 Baso % (Auto) 0.6 % 01/06/22 20:39 Neut # (Auto) 8.42 K/uL (1.4-6.5) H 01/06/22 20:39 Lymph # (Auto) 1.54 K/uL (1.2-3.4) 01/06/22 20:39 [place] # (Auto) 0.96 K/uL (0.24-0.82) H 01/06/22 20:39 Eos # (Auto) 0.22 K/uL (0-0.50) 01/06/22 20:39 Baso # (Auto) 0.07 K/uL (0-0.2) 01/06/22 20:39 Immature Gran # (Auto) 0.07 K/uL (0.00-0.02) H 01/06/22 20:39 Sodium 141 mmol/L (136-145) 01/06/22 20:39 Potassium 4.3 mmol/L (3.5-5.1) 01/06/22 20:39 Chloride 106 mmol/L (98-107) 01/06/22 20:39 Carbon Dioxide 26 mmol/L (21-32) 01/06/22 20:39 Anion Gap 9 (3-11) 01/06/22 20:39 BUN 20 mg/dl (6-23) 01/06/22 20:39 Creatinine 0.98 mg/dl (0.6-1.4) 01/06/22 20:39 Est Cr Clr Drug Dosing Not Reportable 01/06/22 20:39 Est GFR ( Amer) 93.4 ml/min 01/06/22 20:39 Est GFR (Non-Af Amer) 80.6 ml/min 01/06/22 20:39 BUN/Creatinine Ratio 20.4 (10-20) H 01/06/22 20:39 Glucose 99 mg/dl (70-99(Fasting)) 01/06/22 20:39 Lactate 0.4 mmol/L (0.4-2.0) 01/07/22 00:28 Calcium 9.1 mg/dl (8.5-10.1) 01/06/22 20:39 Phosphorus 4.2 mg/dl (2.5-4.9) 01/06/22 20:39 Magnesium 2.3 mg/dl (1.7-2.4) 01/06/22 20:39 Total Bilirubin 0.4 mg/dl (0.2-1.0) 01/06/22 20:39 AST 17 U/L (13-39) 01/06/22 20:39 ALT 6 U/L (7-52) L 01/06/22 20:39 Alkaline Phosphatase 90 U/L (34-104) 01/06/22 20:39 Troponin I High Sens 5.7 pg/ml (0-20) 01/06/22 20:39 B-Natriuretic Peptide 111 pg/ml (0-100) H 01/06/22 20:52 Total Protein 6.9 gm/dl (6.0-8.3) 01/06/22 20:39 Albumin 3.9 gm/dl (3.4-5.0) 01/06/22 20:39 Globulin 3.0 gm/dl (2.5-4.0) 01/06/22 20:39 Albumin/Globulin Ratio 1.3 (0.9-2) 01/06/22 20:39 Lipase 42 U/L (11-82) 01/06/22 20:39 SARS-CoV-2 (PCR) POSITIVE (Negative) A* 01/06/22 20:56 Impressions Chest X-Ray 01/06/22 20:39 SINGLE VIEW CHEST CLINICAL HISTORY: Cough. FINDINGS: An AP, portable, upright chest radiograph is compared to study dated 08/06/2020. The examination is degraded by portable technique and patient rotation. The cardiomediastinal silhouette is unremarkable noting atherosclerotic calcification of the thoracic aorta. There is left basilar consolidation and a small left pleural effusion. Atelectasis is noted at the right lung base. No pneumothorax is seen. The skeletal structures are osteopenic. The bony thorax is grossly intact. IMPRESSION: There is left basilar consolidation and a small left pleural effusion. The appearance is typical for pneumonia/aspiration pneumonitis. Clinical correlation will be required and radiographic follow-up to resolution is recommended. ACT 112: Negative or not required by law. Electronically signed by: Marty Ram M.D. 01/06/2022 10:57 PM Diagnostic Findings EKG as per my interpretation : Rate 95, NSR, LAD, LAFB, T wave abnormalities lateral and septal leads
[2022-01-07] MEDS ORDERED: LEVALBUTEROL 1.25MG/0.5ML NEB INH PRN (02:10)
[2022-01-07] MEDS ORDERED: XOPENEX/ATROVENT 1.25mg/0.5MG NEB COMBO NEB PRN (02:10)
[2022-01-07] MEDS ORDERED: SOD PHOSPHATE/SOD BIPHOSPHATE ENEMA 132 ML BTL PR PRN (02:10)
[2022-01-07] MEDS ORDERED: PROMETHAZINE HCL 6.25 MG in SODIUM CHLORIDE 0.9% 50 ML IV PRN (02:10)
[2022-01-07] MEDS ORDERED: ACETAMINOPHEN 325 MG TAB PO PRN (02:10)
[2022-01-07] MEDS ORDERED: IPRATROPIUM BROMIDE NEB SOLN 0.02% 2.5 ML VIAL INH PRN (02:10)
[2022-01-07] MEDS: LORazepam 1 MG TAB PO SCH ×3 (03:33→20:24)
[2022-01-07] MEDS: LEVOTHYROXINE SODIUM 75 MCG TABLET PO SCH (05:49)
[2022-01-07] MEDS: AMPICILLIN/SULBACTAM SOD 3,000 MG in 0.9 % SODIUM CHLORIDE 100 ML IV SCH ×4 (05:50→20:14)
[2022-01-07 06:13] LABS: Hematocrit (blood only) 41.7 % (40.1-51.0); Hemoglobin 13.3 g/dl (14.0-18.0); Mean Corpuscular Hemoglobin 28.8 pg (25.0-34.0); Mean Corpuscular Hgb Conc 31.9 g/dL (32.0-36.0); Mean Corpuscular Volume 90.3 fL (80.0-100.0); Mean Platelet Volume 8.8 fL (9.4-12.4); Platelet Count 258 K/uL (130-400); RDW Coefficient of Variation 13.6 % (11.5-14.5); RDW Standard Deviation 45.1 fL (36.4-46.3); Red Blood Count 4.62 M/uL (4.63-6.08); White Blood Count 8.43 K/ul (4.8-10.8)
[2022-01-07 06:49] LABS: Basophils # (auto) 0.03 K/uL (0-0.2); Basophils % (auto) 0.4 %; Eosinophils # (auto) 0.01 K/uL (0-0.50); Eosinophils % (auto) 0.1 %; Immature Granulocytes # (auto) 0.02 K/uL (0.00-0.02); Immature Granulocytes % (auto) 0.2 %; Lymphocytes # (auto) 0.41 K/uL (1.2-3.4); Lymphocytes % (auto) 4.9 %; Monocytes # (auto) 0.13 K/uL (0.24-0.82); Monocytes % (auto) 1.5 %; Neutrophils # (auto) 7.83 K/uL (1.4-6.5); Neutrophils % (auto) 92.9 %
[2022-01-07 06:56] LABS: Anion Gap 6 (3-11); BUN Creatinine Ratio 19.3 (10-20); Blood Urea Nitrogen 17 mg/dl (6-23); Calcium 8.6 mg/dl (8.5-10.1); Carbon Dioxide 28 mmol/L (21-32); Chloride 106 mmol/L (98-107); Creatinine Clr Calc Pharmacy 44.7 ml/min; Est GFR (African American) 104.5 ml/min; Est GFR (Non-African American) 90.1 ml/min; Glucose 117 mg/dl (70-99(Fasting)); Sodium 140 mmol/L (136-145)
[2022-01-07] MEDS: CARBIDOPA/LEVODOPA 25/100MG TAB PO SCH ×3 (08:07→20:15)
[2022-01-07] MEDS: ARIPiprazole 5 MG TAB PO SCH (08:25)
[2022-01-07] MEDS: ASPIRIN 81 MG ECTAB PO SCH (08:25)
[2022-01-07] MEDS: BENZTROPINE MESYLATE 1 MG TAB PO SCH ×3 (08:26→20:18)
[2022-01-07] MEDS: dexAMETHasone 6 MG in SYRINGE 0 ML IV SCH (08:26)
[2022-01-07] MEDS: DOCUSATE SODIUM SYRUP 100 MG/10 ML UDC PO SCH (08:26)
[2022-01-07] MEDS: lamoTRIgine 100 MG TAB PO SCH ×2 (08:27→20:19)
[2022-01-07] MEDS: FINASTERIDE 5 MG TAB PO SCH (08:27)
[2022-01-07] MEDS: METOPROLOL TARTRATE 25 MG TAB PO SCH ×2 (08:28→20:21)
[2022-01-07] MEDS: PANTOprazole 40 MG TAB PO SCH ×2 (08:36→20:20)
[2022-01-07] MEDS: MULTIVITAMIN TAB PO SCH (08:36)
[2022-01-07] MEDS: POLYETHYLENE (MIRALAX) 17 GM PACK PO SCH ×2 (08:37→20:22)
[2022-01-07] MEDS: SENNA 8.6 MG TAB PO SCH ×2 (08:37→20:22)
[2022-01-07] MEDS ORDERED: DOCUSATE SODIUM SYRUP 100 MG/10 ML UDC PO SCH (09:00)
[2022-01-07] MEDS ORDERED: ENOXAPARIN INJ 40 MG/0.4 ML SYR SQ SCH (09:00)
--- NOTE | 2022-01-07 12:12 | Hospitalist Progress Note ---
Date of Service January 07, 2022 Assessment & Plan (1) Aspiration pneumonia: (2) Hypoxia: (3) COVID-19: Plan 66 year old male with intellectual impairment from senior living who was sent to the ED for oxygen saturation in 70s and resolved with EMS/ER intervention and has remained stable. Being treated for aspiration PNA. CXR- There is left basilar consolidation and a small left pleural effusion. The appearance is typical for pneumonia/aspiration pneumonitis. Clinical correlation will be required and radiographic follow-up to resolution is recommended. Aspiration PNA- CXR noted. continue unasyn. Plan for video swallow study tomorrow per [facility]. Diet recommendations per [employer]. Repeat CXR in 4-6 weeks to ensure resolution. - H/o dysphagia and had PEG tube but pulled repeatedly in past Hypoxia- resolved. saturating well in room air. No respiratory distress Covid 19- currently does not require Covid 19 specific treatment. Monitor. If hypoxic, will start on remdesevir. started on remdesevir on admission due to hypoxia. Seizure disorder- continue lamictal. seizure precautions. Chronic Hep B- on entecavir. stable as per OP GI note. Parkinson's disease- on sinemet BPH- on proscar DVT ppx- sc lovenox Dispo- continue iv unasyn. Video swallow study tomorrow Admission and Anticipated Discharge Date Admission Date: January 07, 2022 Subjective Seen and examined at bedside. He is awake, alert but not able to provide ROS due to his underlying cognitive/developmental issues. Does not follow commands. Non verbal. No fever, dyspnea, vomiting. Looks comfortable. Physical Exam Physical Exam: General: Lying comfortably in bed, not in distress, on room air, keeps nodding his head Chest: Fair breath sounds bilaterally, no wheezes or crackles CVS: Regular rate and rhythm, normal heart sounds, no murmur Abdomen: Soft, non tender, not distended, normal bowel sounds Neuro: Awake, alert, non verbal, does not follow commands Extremities: No edema Results & Data Results & Data ([facility]) Vital Signs (Past 12 Hours) Vital Signs Temp Pulse Pulse Resp BP Pulse Ox O2 Del Method 01/07/22 07:58 36.6 C 84 16 107/61 94 Room Air 01/07/22 07:10 79 01/07/22 03:51 77 01/07/22 03:11 Room Air 01/07/22 02:51 36.4 C L 80 14 128/61 91 Room Air 01/07/22 01:00 57 L 20 121/74 94 Room Air Laboratory Results Short CBC 01/06/22 01/07/22 Range/Units 20:39 05:24 WBC 11.28 H 8.43 (4.8-10.8) K/ul Hgb 13.9 L 13.3 L (14.0-18.0) g/dl Hct 43.7 41.7 (40.1-51.0) % Plt Count 316 258 (130-400) K/uL BMP 01/06/22 01/07/22 01/07/22 20:39 05:24 07:50 Sodium 141 140 Potassium 4.3 TNP 4.7 Chloride 106 106 Carbon Dioxide 26 28 BUN 20 17 Creatinine 0.98 0.88 Glucose 99 117 H Calcium 9.1 8.6 Liver Function 01/06/22 Range/Units 20:39 Total Bilirubin 0.4 (0.2-1.0) mg/dl AST 17 (13-39) U/L ALT 6 L (7-52) U/L Alkaline Phosphatase 90 (34-104) U/L Albumin 3.9 (3.4-5.0) gm/dl Medications Administered Current Inpatient Medications Acetaminophen (Acetaminophen 325 Mg Tab) 650 mg PO Q4H PRN PRN Reason: Pain or Fever Stop: 02/06/22 02:09 Aripiprazole (Aripiprazole 5 Mg Tab) 5 mg PO DAILY JOAQUIN Stop: 02/06/22 08:59 Last Admin: 01/07/22 08:25 Dose: 5 mg Aspirin (Aspirin 81 Mg Ectab) 81 mg PO DAILY JOAQUIN Stop: 02/06/22 08:59 Last Admin: 01/07/22 08:25 Dose: 81 mg Benztropine Mesylate (Benztropine Mesylate 1 Mg Tab) 1 mg PO TID JOAQUIN Stop: 02/06/22 08:59 Last Admin: 01/07/22 08:26 Dose: 1 mg Carbidopa/Levodopa (Carbidopa/Levodopa 25/100mg Tab) 1 tab PO 0800,1600,2000 JOAQUIN Stop: 02/06/22 07:59 Last Admin: 01/07/22 08:07 Dose: 1 tab Docusate Sodium (Docusate Sodium Syrup 100 Mg/10 Ml Udc) 100 mg PO DAILY JOAQUIN Stop: 02/06/22 08:59 Last Admin: 01/07/22 08:26 Dose: 100 mg Enoxaparin Sodium (Enoxaparin Inj 40 Mg/0.4 Ml Syr) 40 mg SQ QAM JOAQUIN Stop: 02/06/22 08:59 Last Admin: 01/07/22 08:27 Dose: 40 mg Finasteride (Finasteride 5 Mg Tab) 5 mg PO DAILY JOAQUIN Stop: 02/06/22 08:59 Last Admin: 01/07/22 08:27 Dose: 5 mg Dexamethasone 6 mg/ Syringe 1.5 mls @ 1 mls/min IV DAILY JOAQUIN Stop: 02/06/22 08:59 Last Admin: 01/07/22 08:26 Dose: 1 mls/min Promethazine HCl 6.25 mg/ (Sodium Chloride) 50.25 mls @ 201 mls/hr IV Q6H PRN PRN Reason: Nausea And Vomiting Stop: 02/06/22 02:09 Ampicillin Sodium/Sulbactam Sodium 3,000 mg/ Sodium Chloride 108 mls @ 200 mls/hr IV Q6H JOAQUIN Stop: 01/14/22 05:59 Last Infusion: 01/07/22 06:29 Dose: Infused Ipratropium [place] (Ipratropium [place] Neb Soln 0.02% 2.5 Ml Vial) 0.5 mg INH Q4H PRN PRN Reason: SOB/WHEEZING Stop: 02/06/22 02:09 Lamotrigine (Lamotrigine 100 Mg Tab) 200 mg PO BID [facility] Stop: 02/06/22 08:59 Last Admin: 01/07/22 08:27 Dose: 200 mg Levalbuterol HCl (Levalbuterol 1.25mg/0.5ml Neb) 1.25 mg INH Q4H PRN PRN Reason: SOB/WHEEZING Stop: 02/06/22 02:09 Levothyroxine Sodium (Levothyroxine Sodium 75 Mcg Tablet) 75 mcg PO DAILYBB [facility] Stop: 02/06/22 06:29 Last Admin: 01/07/22 05:49 Dose: 75 mcg Lorazepam (Lorazepam 1 Mg Tab) 1 mg PO BID [facility] Stop: 02/06/22 02:09 Last Admin: 01/07/22 08:27 Dose: 1 mg Metoprolol Tartrate (Metoprolol Tartrate 25 Mg Tab) 12.5 mg PO BID [facility] Stop: 02/06/22 08:59 Last Admin: 01/07/22 08:28 Dose: 12.5 mg Miscellaneous (Baraclude~Order Awaiting Action) 1 each N/A QS JOAQUIN Stop: 02/06/22 07:59 Last Admin: 01/07/22 08:07 Dose: Not Given Multivitamins (Multivitamin Tab) 1 tab PO DAILY JOAQUIN Stop: 02/06/22 08:59 Last Admin: 01/07/22 08:36 Dose: 1 tab Pantoprazole Sodium (Pantoprazole 40 Mg Tab) 40 mg PO BID JOAQUIN Stop: 02/06/22 08:59 Last Admin: 01/07/22 08:36 Dose: 40 mg Polyethylene Glycol (Polyethylene (Miralax) 17 Gm Pack) 17 gm PO BID JOAQUIN Stop: 02/06/22 08:59 Last Admin: 01/07/22 08:37 Dose: 17 gm Sennosides (Senna 8.6 Mg Tab) 8.6 mg PO BID JOAQUIN Stop: 02/06/22 08:59 Last Admin: 01/07/22 08:37 Dose: 8.6 mg Sodium Biphosphate/Sodium Phosphate (Sod Phosphate/Sod Biphosphate Enema 132 Ml Btl) 118 ml IN UD PRN PRN Reason: no BM in 4 days Stop: 02/06/22 02:09 Trazodone HCl (Trazodone Hcl 100 Mg Tab) 100 mg PO HS [facility] Stop: 02/06/22 20:59 (1) Aspiration pneumonia Aspiration pneumonia type: unspecified Laterality: unspecified laterality Lung location: unspecified part of lung Qualified Code(s): J69.0 - Pneumonitis due to inhalation of food and vomit
--- NOTE | 2022-01-07 19:57 | Electrocardiogram Report ---
Test Reason : Blood Pressure : / mmHG Vent. Rate : 097 BPM Atrial Rate : 097 BPM P-R Int : 124 ms QRS Dur : 090 ms QT Int : 360 ms P-R-T Axes : 038 -73 056 degrees QTc Int : 458 ms Poor data quality, interpretation may be adversely affected Normal sinus rhythm Left axis deviation Abnormal ECG When compared with ECG of 03-AUG-2020 12:15, T wave inversion no longer evident in Inferior leads Confirmed by Sadi Vasquez ([id number]) on 01/07/2022 7:57:31 PM Referred By: REFERRED SELF Confirmed By:Sadi Vasquez
[2022-01-07] MEDS: traZODone HCL 100 MG TAB PO SCH (20:23)
[2022-01-08] MEDS: HEPARIN SOD 5,000 UNIT/0.5 ML VIAL SQ SCH ×3 (06:14→21:01)
[2022-01-08] MEDS: AMPICILLIN/SULBACTAM SOD 3,000 MG in 0.9 % SODIUM CHLORIDE 100 ML IV SCH ×4 (06:14→23:45)
[2022-01-08] MEDS: LEVOTHYROXINE SODIUM 75 MCG TABLET PO SCH (06:15)
[2022-01-08] MEDS: FINASTERIDE 5 MG TAB PO SCH (07:27)
[2022-01-08] MEDS: PANTOprazole 40 MG TAB PO SCH ×2 (07:27→21:00)
[2022-01-08] MEDS: MULTIVITAMIN TAB PO SCH (07:27)
[2022-01-08] MEDS: ARIPiprazole 5 MG TAB PO SCH (07:27)
[2022-01-08] MEDS: SENNA 8.6 MG TAB PO SCH ×2 (07:27→20:58)
[2022-01-08] MEDS: CARBIDOPA/LEVODOPA 25/100MG TAB PO SCH ×3 (07:28→20:57)
[2022-01-08] MEDS: lamoTRIgine 100 MG TAB PO SCH ×2 (07:28→21:00)
[2022-01-08] MEDS: ASPIRIN 81 MG ECTAB PO SCH (07:28)
[2022-01-08] MEDS: METOPROLOL TARTRATE 25 MG TAB PO SCH ×2 (07:29→20:58)
[2022-01-08] MEDS: DOCUSATE SODIUM SYRUP 100 MG/10 ML UDC PO SCH (07:29)
[2022-01-08] MEDS: BENZTROPINE MESYLATE 1 MG TAB PO SCH ×3 (07:29→21:01)
[2022-01-08] MEDS: POLYETHYLENE (MIRALAX) 17 GM PACK PO SCH ×2 (07:30→20:57)
[2022-01-08 07:45] LABS: Hematocrit (blood only) 39.8 % (40.1-51.0); Hemoglobin 12.6 g/dl (14.0-18.0); Mean Corpuscular Hemoglobin 28.4 pg (25.0-34.0); Mean Corpuscular Hgb Conc 31.7 g/dL (32.0-36.0); Mean Corpuscular Volume 89.8 fL (80.0-100.0); Mean Platelet Volume 8.8 fL (9.4-12.4); Platelet Count 221 K/uL (130-400); RDW Coefficient of Variation 13.4 % (11.5-14.5); RDW Standard Deviation 44.1 fL (36.4-46.3); Red Blood Count 4.43 M/uL (4.63-6.08); White Blood Count 8.68 K/ul (4.8-10.8)
[2022-01-08 08:29] LABS: BUN Creatinine Ratio 20.2 (10-20); Calcium 8.8 mg/dl (8.5-10.1); Creatinine Clr Calc Pharmacy 41.6 ml/min; Est GFR (African American) 98.2 ml/min; Est GFR (Non-African American) 84.7 ml/min; Magnesium 2.2 mg/dl (1.7-2.4); Phosphorus 2.6 mg/dl (2.5-4.9); Potassium 4.1 mmol/L (3.5-5.1)
[2022-01-08] MEDS: dexAMETHasone 6 MG in SYRINGE 0 ML IV SCH (09:59)
[2022-01-08] MEDS: LORazepam 1 MG TAB PO SCH ×2 (09:59→21:06)
--- NOTE | 2022-01-08 13:56 | Fluoroscopy Report ---
FL video swallow HISTORY: Cough with left lower lobe pneumonia. assess for aspiration TECHNIQUE: Video fluoroscopic evaluation of swallowing was performed in the AP and lateral projection s by the speech pathology staff. The patient is fed nectar-thick and thin liquid barium, and barium p udding. FLUOROSCOPY TIME: 2.5 minutes. A cine loop submitted. COMPARISON STUDY: Video swallow 07/22/2020. FINDINGS: Difficult study to interpret due to the significant motion artifact. However, there appears to be multiple episodes of aspiration during the examination due to the poor pharyngeal constriction and decreased epiglottic deflection. IMPRESSION: 1. Difficult study to interpret due to the significant motion artifact. However, there appears to be multiple episodes of aspiration during the examination due to the poor pharyngeal constriction and de creased epiglottic deflection. 2. Please see the speech pathologist report for detailed findings and recommendations. ACT 112: Negative or not required by law. Electronically signed by: Jaya Hines M.D. 01/08/2022 1:55 PM
--- NOTE | 2022-01-08 16:49 | Hospitalist Progress Note ---
Date of Service January 08, 2022 Assessment & Plan (1) Aspiration pneumonia: (2) Hypoxia: (3) COVID-19: Plan 66 year old male with intellectual impairment from care home who was sent to the ED for oxygen saturation in 70s and resolved with EMS/ER intervention and has remained stable. Being treated for aspiration PNA. CXR- There is left basilar consolidation and a small left pleural effusion. The appearance is typical for pneumonia/aspiration pneumonitis. Clinical correlation will be required and radiographic follow-up to resolution is recommended. Aspiration PNA - CXR noted. continue unasyn. Repeat CXR in 4-6 weeks to ensure resolution. - VFSS today shows faustina aspiration. Not safe for po at this point- will need reeval. Will need to discuss about PEG reinsertion and tube feeding with guardian if he continues to do poorly. Of note, he had PEG tube in the past but pulled repeatedly. If so, might discuss about permissive aspiration with feeding. Hypoxia- resolved. saturating well in room air. No respiratory distress Covid 19- currently does not require Covid 19 specific treatment. Monitor. If hypoxic, will start on remdesevir. started on remdesevir on admission due to hypoxia. Seizure disorder- continue lamictal. seizure precautions. Chronic Hep B- on entecavir. stable as per OP GI note. Parkinson's disease- on sinemet BPH- on proscar Undernutrition- BMI 14.2. Dietitian eval DVT ppx- sc lovenox Dispo- continue iv unasyn. NPO as VFSS study shows aspiration. Need to reeval vs discuss PEG tube options for enteral nutrition. Start PPN if delayed. Admission and Anticipated Discharge Date Admission Date: January 07, 2022 Subjective He is non verbal and does not follow commands. He is stable compared to yesterday. No fever, shortness of breath, vomiting. On room air, not in any distress. Physical Exam Physical Exam: General: Sitting in chair, not in distress, on room air, keeps nodding his head Chest: Fair breath sounds bilaterally, no wheezes or crackles CVS: Regular rate and rhythm, normal heart sounds, no murmur Abdomen: Soft, non tender, not distended, normal bowel sounds Neuro: Awake, alert, non verbal, does not follow commands Extremities: No edema Results & Data Results & Data ([facility]) Vital Signs (Past 12 Hours) Vital Signs Temp Pulse Pulse Resp BP BP Pulse Ox 01/08/22 15:38 89 01/08/22 15:05 36.2 C L 84 26 H 113/63 90 01/08/22 10:39 36.6 C 91 H 20 116/68 93 01/08/22 09:05 01/08/22 07:25 36.5 C 72 16 123/38 L 95 01/08/22 07:13 47 L O2 Del Method 01/08/22 15:38 01/08/22 15:05 Room Air 01/08/22 10:39 Room Air 01/08/22 09:05 Room Air 01/08/22 07:25 Room Air 01/08/22 07:13 Laboratory Results Short CBC 01/08/22 Range/Units 07:12 WBC 8.68 (4.8-10.8) K/ul Hgb 12.6 L (14.0-18.0) g/dl Hct 39.8 L (40.1-51.0) % Plt Count 221 (130-400) K/uL BMP 01/08/22 07:12 Sodium 142 Potassium 4.1 Chloride 106 Carbon Dioxide 31 BUN 19 Creatinine 0.94 Glucose 81 Calcium 8.8 Diagnostic Findings Videofluoroscopic Swallow 01/08/22 11:11 FL video swallow HISTORY: Cough with left lower lobe pneumonia. assess for aspiration TECHNIQUE: Video fluoroscopic evaluation of swallowing was performed in the AP and lateral projections by the speech pathology staff. The patient is fed nectar-thick and thin liquid barium, and barium pudding. FLUOROSCOPY TIME: 2.5 minutes. A cine loop submitted. COMPARISON STUDY: Video swallow 07/22/2020. FINDINGS: Difficult study to interpret due to the significant motion artifact. However, there appears to be multiple episodes of aspiration during the examination due to the poor pharyngeal constriction and decreased epiglottic deflection. IMPRESSION: 1. Difficult study to interpret due to the significant motion artifact. However, there appears to be multiple episodes of aspiration during the examination due to the poor pharyngeal constriction and decreased epiglottic deflection. 2. Please see the speech pathologist report for detailed findings and recommendations. ACT 112: Negative or not required by law. Electronically signed by: Jaya Hines M.D. 01/08/2022 1:55 PM Medications Administered Current Inpatient Medications Acetaminophen (Acetaminophen 325 Mg Tab) 650 mg PO Q4H PRN PRN Reason: Pain or Fever Stop: 02/06/22 02:09 Aripiprazole (Aripiprazole 5 Mg Tab) 5 mg PO DAILY JOAQUIN Stop: 02/06/22 08:59 Last Admin: 01/08/22 07:27 Dose: 5 mg Aspirin (Aspirin 81 Mg Ectab) 81 mg PO DAILY JOAQUIN Stop: 02/06/22 08:59 Last Admin: 01/08/22 07:28 Dose: 81 mg Benztropine Mesylate (Benztropine Mesylate 1 Mg Tab) 1 mg PO TID JOAQUIN Stop: 02/06/22 08:59 Last Admin: 01/08/22 15:51 Dose: 1 mg Carbidopa/Levodopa (Carbidopa/Levodopa 25/100mg Tab) 1 tab PO 0800,1600,2000 JOAQUIN Stop: 02/06/22 07:59 Last Admin: 01/08/22 15:51 Dose: 1 tab Docusate Sodium (Docusate Sodium Syrup 100 Mg/10 Ml Udc) 100 mg PO DAILY JOAQUIN Stop: 02/06/22 08:59 Last Admin: 01/08/22 07:29 Dose: 100 mg Finasteride (Finasteride 5 Mg Tab) 5 mg PO DAILY JOAQUIN Stop: 02/06/22 08:59 Last Admin: 01/08/22 07:27 Dose: 5 mg Heparin Sodium (Porcine) (Heparin Sod 5,000 Unit/0.5 Ml Vial) 5,000 units SQ Q8 JOAQUIN Stop: 02/07/22 05:59 Last Admin: 01/08/22 14:17 Dose: 5,000 units Dexamethasone 6 mg/ Syringe 1.5 mls @ 1 mls/min IV DAILY JOAQUIN Stop: 02/06/22 08:59 Last Admin: 01/08/22 09:59 Dose: 1 mls/min Promethazine HCl 6.25 mg/ (Sodium Chloride) 50.25 mls @ 201 mls/hr IV Q6H PRN PRN Reason: Nausea And Vomiting Stop: 02/06/22 02:09 Ampicillin Sodium/Sulbactam Sodium 3,000 mg/ Sodium Chloride 108 mls @ 200 mls/hr IV Q6H JOAQUIN Stop: 01/14/22 05:59 Last Infusion: 01/08/22 12:40 Dose: Infused Ipratropium Eden (Ipratropium Eden Neb Soln 0.02% 2.5 Ml Vial) 0.5 mg INH Q4H PRN PRN Reason: SOB/WHEEZING Stop: 02/06/22 02:09 Lamotrigine (Lamotrigine 100 Mg Tab) 200 mg PO BID JOAQUIN Stop: 02/06/22 08:59 Last Admin: 01/08/22 07:28 Dose: 200 mg Levalbuterol HCl (Levalbuterol 1.25mg/0.5ml Neb) 1.25 mg INH Q4H PRN PRN Reason: SOB/WHEEZING Stop: 02/06/22 02:09 Levothyroxine Sodium (Levothyroxine Sodium 75 Mcg Tablet) 75 mcg PO DAILYBB REPLACED BY [facility] Stop: 02/06/22 06:29 Last Admin: 01/08/22 06:15 Dose: 75 mcg Lorazepam (Lorazepam 1 Mg Tab) 1 mg PO BID JOAQUIN Stop: 02/06/22 02:09 Last Admin: 01/08/22 09:59 Dose: 1 mg Metoprolol Tartrate (Metoprolol Tartrate 25 Mg Tab) 12.5 mg PO BID JOAQUIN Stop: 02/06/22 08:59 Last Admin: 01/08/22 07:29 Dose: 12.5 mg Miscellaneous (Baraclude~Order Awaiting Action) 1 each N/A QS JOAQUIN Stop: 02/06/22 07:59 Last Admin: 01/08/22 15:51 Dose: Not Given Multivitamins (Multivitamin Tab) 1 tab PO DAILY JOAQUIN Stop: 02/06/22 08:59 Last Admin: 01/08/22 07:27 Dose: 1 tab Pantoprazole Sodium (Pantoprazole 40 Mg Tab) 40 mg PO BID JOAQUIN Stop: 02/06/22 08:59 Last Admin: 01/08/22 07:27 Dose: 40 mg Polyethylene Glycol (Polyethylene (Miralax) 17 Gm Pack) 17 gm PO BID REPLACED BY [facility] Stop: 02/06/22 08:59 Last Admin: 01/08/22 07:30 Dose: Not Given Sennosides (Senna 8.6 Mg Tab) 8.6 mg PO BID JOAQUIN Stop: 02/06/22 08:59 Last Admin: 01/08/22 07:27 Dose: 8.6 mg Sodium Biphosphate/Sodium Phosphate (Sod Phosphate/Sod Biphosphate Enema 132 Ml Btl) 118 ml OR UD PRN PRN Reason: no BM in 4 days Stop: 02/06/22 02:09 Trazodone HCl (Trazodone Hcl 100 Mg Tab) 100 mg PO HS JOAQUIN Stop: 02/06/22 20:59 Last Admin: 01/07/22 20:23 Dose: 100 mg (1) Aspiration pneumonia Aspiration pneumonia type: unspecified Laterality: unspecified laterality Lung location: unspecified part of lung Qualified Code(s): J69.0 - Pneumonitis due to inhalation of food and vomit
[2022-01-08] MEDS: D5W AND 1/2NSS 1,000 ML IV SCH (18:07)
[2022-01-08] MEDS: traZODone HCL 100 MG TAB PO SCH (21:01)
[2022-01-09] MEDS: AMPICILLIN/SULBACTAM SOD 3,000 MG in 0.9 % SODIUM CHLORIDE 100 ML IV SCH ×3 (05:42→18:37)
[2022-01-09] MEDS: HEPARIN SOD 5,000 UNIT/0.5 ML VIAL SQ SCH ×3 (05:42→21:06)
[2022-01-09 06:28] LABS: Anion Gap 6 (3-11); Blood Urea Nitrogen 18 mg/dl (6-23); Calcium 8.8 mg/dl (8.5-10.1); Carbon Dioxide 27 mmol/L (21-32); Chloride 106 mmol/L (98-107); Creatinine Clr Calc Pharmacy 39.1 ml/min; Est GFR (African American) 91.1 ml/min; Est GFR (Non-African American) 78.6 ml/min; Glucose 85 mg/dl (70-99(Fasting)); Sodium 139 mmol/L (136-145)
[2022-01-09] MEDS: LEVOTHYROXINE SODIUM 75 MCG TABLET PO SCH (06:44)
[2022-01-09 07:56] LABS: Hematocrit (blood only) 38.7 % (40.1-51.0); Hemoglobin 12.5 g/dl (14.0-18.0); Mean Corpuscular Hemoglobin 28.8 pg (25.0-34.0); Mean Corpuscular Hgb Conc 32.3 g/dL (32.0-36.0); Mean Corpuscular Volume 89.2 fL (80.0-100.0); Mean Platelet Volume 8.9 fL (9.4-12.4); Platelet Count 239 K/uL (130-400); RDW Coefficient of Variation 13.4 % (11.5-14.5); RDW Standard Deviation 43.9 fL (36.4-46.3); Red Blood Count 4.34 M/uL (4.63-6.08); White Blood Count 9.36 K/ul (4.8-10.8)
[2022-01-09] MEDS: dexAMETHasone 6 MG in SYRINGE 0 ML IV SCH (08:14)
[2022-01-09] MEDS ORDERED: LORazepam 0.5 MG in SYRINGE 0.25 ML IV PRN (12:40)
[2022-01-09] MEDS: DOCUSATE SODIUM SYRUP 100 MG/10 ML UDC PO SCH (13:41)
[2022-01-09] MEDS: METOPROLOL TARTRATE 25 MG TAB PO SCH ×2 (13:41→20:16)
[2022-01-09] MEDS: MULTIVITAMIN TAB PO SCH (13:41)
[2022-01-09] MEDS: BENZTROPINE MESYLATE 1 MG TAB PO SCH ×3 (13:42→20:16)
[2022-01-09] MEDS: FINASTERIDE 5 MG TAB PO SCH (13:42)
[2022-01-09] MEDS: CARBIDOPA/LEVODOPA 25/100MG TAB PO SCH ×3 (13:42→20:16)
[2022-01-09] MEDS: ASPIRIN 81 MG ECTAB PO SCH (13:42)
[2022-01-09] MEDS: PANTOprazole 40 MG TAB PO SCH ×2 (13:42→20:17)
[2022-01-09] MEDS: lamoTRIgine 100 MG TAB PO SCH ×2 (13:42→20:16)
[2022-01-09] MEDS: ARIPiprazole 5 MG TAB PO SCH (13:42)
[2022-01-09] MEDS: POLYETHYLENE (MIRALAX) 17 GM PACK PO SCH ×2 (13:43→20:17)
[2022-01-09] MEDS: SENNA 8.6 MG TAB PO SCH ×2 (13:43→20:17)
[2022-01-09] MEDS: D5W AND 1/2NSS 1,000 ML IV SCH (13:46)
[2022-01-09] MEDS: LORazepam 1 MG TAB PO SCH ×2 (13:46→20:16)
--- NOTE | 2022-01-09 14:38 | Hospitalist Progress Note ---
Date of Service January 09, 2022 Assessment & Plan (1) Aspiration pneumonia: (2) Hypoxia: (3) COVID-19: Plan 66 year old male with intellectual impairment from assisted who was sent to the ED for oxygen saturation in 70s and resolved with EMS/ER intervention and has remained stable. Being treated for aspiration PNA. CXR- There is left basilar consolidation and a small left pleural effusion. The appearance is typical for pneumonia/aspiration pneumonitis. Clinical correlation will be required and radiographic follow-up to resolution is recommended. Aspiration PNA - CXR noted. continue unasyn. Repeat CXR in 4-6 weeks to ensure resolution. - VFSS today shows faustina aspiration. Not safe for po at this point- will need reeval. Plan: Discussed with patient's primary contact listed in facesheet ( Afsaneh Kim) regarding patient's aspiration risks and further care. Patient has been noted to be aspirating while he was at the facility. He was being fed one-to-one by the staff there and was noted to be coughing multiple times. He had PEG tube placed in the past but pulled it out. Discussed goals of care; she agreed that patient would benefit with comfort care measures rather than then putting him through more procedures. His sister also has intellectual disability and is at a facility. Medical decisions are made by the caretakers. It is unknown if patient has a appointed legal guardian. We will consult palliative to help clarify goals of care going forward and possible hospice referral. For now, the meds would be given crushed in applesauce as it was being done previously at the facility. Hypoxia- resolved. saturating well in room air. No respiratory distress Covid 19- currently does not require Covid 19 specific treatment. Monitor. If hypoxic, will start on remdesevir. started on remdesevir on admission due to hypoxia. Seizure disorder- continue lamictal. seizure precautions. Chronic Hep B- on entecavir. stable as per OP GI note. Parkinson's disease- on sinemet BPH- on proscar Undernutrition- BMI 14.2. Dietitian eval DVT ppx- sc lovenox Dispo- continue iv unasyn. NPO fo now. meds crushed in applesauce. further interventions based on goals of care. Admission and Anticipated Discharge Date Admission Date: January 07, 2022 Subjective Patient seen and examined at bedside. He is lying down on the bed comfortably. He is nonverbal and does not follow any commands. No fever, shortness of breath. In room air. Review of Systems Review of Systems: Unobtainable due to cognitive status Physical Exam Physical Exam: General: lying on the bed comfortably; not in any distress. Chest: Fair breath sounds bilaterally, no wheezes or crackles CVS: Regular rate and rhythm, normal heart sounds, no murmur Abdomen: Soft, non tender, not distended, normal bowel sounds Neuro: Awake, alert, non verbal, does not follow commands Extremities: No edema Results & Data Results & Data ([facility]) Vital Signs (Past 12 Hours) Vital Signs Temp Pulse Pulse Resp BP BP Pulse Ox 01/09/22 13:00 36.5 C 62 16 120/69 96 01/09/22 08:07 36.4 C L 98 H 18 115/62 95 01/09/22 07:59 01/09/22 07:14 96 H 01/09/22 05:04 36.4 C L 93 H 20 114/79 98 O2 Del Method 01/09/22 13:00 Room Air 01/09/22 08:07 Room Air 01/09/22 07:59 Room Air 01/09/22 07:14 01/09/22 05:04 Room Air Diagnostic Findings Laboratory Results WBC 9.36 K/ul (4.8-10.8) 01/09/22 07:29 RBC 4.34 M/uL (4.63-6.08) L 01/09/22 07:29 Hgb 12.5 g/dl (14.0-18.0) L 01/09/22 07:29 Hct 38.7 % (40.1-51.0) L 01/09/22 07:29 MCV 89.2 fL (80.0-100.0) 01/09/22 07:29 MCH 28.8 pg (25.0-34.0) 01/09/22 07:29 MCHC 32.3 g/dL (32.0-36.0) 01/09/22 07:29 RDW Std Deviation 43.9 fL (36.4-46.3) 01/09/22 07:29 RDW Coeff of Marbin 13.4 % (11.5-14.5) 01/09/22 07:29 Plt Count 239 K/uL (130-400) 01/09/22 07:29 MPV 8.9 fL (9.4-12.4) L 01/09/22 07:29 Immature Gran % (Auto) 0.2 % 01/07/22 05:24 Neut % (Auto) 92.9 % 01/07/22 05:24 Lymph % (Auto) 4.9 % 01/07/22 05:24 Pettis % (Auto) 1.5 % 01/07/22 05:24 Eos % (Auto) 0.1 % 01/07/22 05:24 Baso % (Auto) 0.4 % 01/07/22 05:24 Neut # (Auto) 7.83 K/uL (1.4-6.5) H 01/07/22 05:24 Lymph # (Auto) 0.41 K/uL (1.2-3.4) L 01/07/22 05:24 Pettis # (Auto) 0.13 K/uL (0.24-0.82) L 01/07/22 05:24 Eos # (Auto) 0.01 K/uL (0-0.50) 01/07/22 05:24 Baso # (Auto) 0.03 K/uL (0-0.2) 01/07/22 05:24 Immature Gran # (Auto) 0.02 K/uL (0.00-0.02) 01/07/22 05:24 Absolute Nucleated RBC Cancelled 01/09/22 05:40 Nucleated RBC % (auto) Cancelled 01/09/22 05:40 Platelet Estimate Cancelled 01/09/22 05:40 Sodium 139 mmol/L (136-145) 01/09/22 05:40 Potassium 5.3 mmol/L (3.5-5.1) H D 01/09/22 05:47 Chloride 106 mmol/L (98-107) 01/09/22 05:40 Carbon Dioxide 27 mmol/L (21-32) 01/09/22 05:40 Anion Gap 6 (3-11) 01/09/22 05:40 BUN 18 mg/dl (6-23) 01/09/22 05:40 Creatinine 1.00 mg/dl (0.6-1.4) 01/09/22 05:40 Est Cr Clr Drug Dosing 39.1 ml/min 01/09/22 05:40 Est GFR ( Amer) 91.1 ml/min 01/09/22 05:40 Est GFR (Non-Af Amer) 78.6 ml/min 01/09/22 05:40 BUN/Creatinine Ratio 18.0 (10-20) 01/09/22 05:40 Glucose 85 mg/dl (70-99(Fasting)) 01/09/22 05:40 POC Glucose 94 mg/dl (70-99) 01/07/22 02:27 Lactate 0.4 mmol/L (0.4-2.0) 01/07/22 00:28 Calcium 8.8 mg/dl (8.5-10.1) 01/09/22 05:40 Phosphorus 2.6 mg/dl (2.5-4.9) D 01/08/22 07:12 Magnesium 2.2 mg/dl (1.7-2.4) 01/08/22 07:12 Total Bilirubin 0.4 mg/dl (0.2-1.0) 01/06/22 20:39 AST 17 U/L (13-39) 01/06/22 20:39 ALT 6 U/L (7-52) L 01/06/22 20:39 Alkaline Phosphatase 90 U/L (34-104) 01/06/22 20:39 Troponin I High Sens 5.7 pg/ml (0-20) 01/06/22 20:39 B-Natriuretic Peptide 111 pg/ml (0-100) H 01/06/22 20:52 Total Protein 6.9 gm/dl (6.0-8.3) 01/06/22 20:39 Albumin 3.9 gm/dl (3.4-5.0) 01/06/22 20:39 Globulin 3.0 gm/dl (2.5-4.0) 01/06/22 20:39 Albumin/Globulin Ratio 1.3 (0.9-2) 01/06/22 20:39 Lipase 42 U/L (11-82) 01/06/22 20:39 SARS-CoV-2 (PCR) POSITIVE (Negative) A* 01/06/22 20:56 Impressions Chest X-Ray 01/06/22 20:39 SINGLE VIEW CHEST CLINICAL HISTORY: Cough. FINDINGS: An AP, portable, upright chest radiograph is compared to study dated 08/06/2020. The examination is degraded by portable technique and patient rotation. The cardiomediastinal silhouette is unremarkable noting atherosclerotic calcification of the thoracic aorta. There is left basilar consolidation and a small left pleural effusion. Atelectasis is noted at the right lung base. No pneumothorax is seen. The skeletal structures are osteopenic. The bony thorax is grossly intact. IMPRESSION: There is left basilar consolidation and a small left pleural effusion. The appearance is typical for pneumonia/aspiration pneumonitis. Clinical correlation will be required and radiographic follow-up to resolution is recommended. ACT 112: Negative or not required by law. Electronically signed by: Marty Ram M.D. 01/06/2022 10:57 PM Videofluoroscopic Swallow 01/08/22 11:11 FL video swallow HISTORY: Cough with left lower lobe pneumonia. assess for aspiration TECHNIQUE: Video fluoroscopic evaluation of swallowing was performed in the AP and lateral projections by the speech pathology staff. The patient is fed nectar-thick and thin liquid barium, and barium pudding. FLUOROSCOPY TIME: 2.5 minutes. A cine loop submitted. COMPARISON STUDY: Video swallow 07/22/2020. FINDINGS: Difficult study to interpret due to the significant motion artifact. However, there appears to be multiple episodes of aspiration during the examination due to the poor pharyngeal constriction and decreased epiglottic deflection. IMPRESSION: 1. Difficult study to interpret due to the significant motion artifact. However, there appears to be multiple episodes of aspiration during the examination due to the poor pharyngeal constriction and decreased epiglottic deflection. 2. Please see the speech pathologist report for detailed findings and recommendations. ACT 112: Negative or not required by law. Electronically signed by: Jaya Hines M.D. 01/08/2022 1:55 PM (1) Aspiration pneumonia Aspiration pneumonia type: unspecified Laterality: unspecified laterality Lung location: unspecified part of lung Qualified Code(s): J69.0 - Pneumonitis due to inhalation of food and vomit
[2022-01-09] MEDS: traZODone HCL 100 MG TAB PO SCH (20:17)
[2022-01-10] MEDS: AMPICILLIN/SULBACTAM SOD 3,000 MG in 0.9 % SODIUM CHLORIDE 100 ML IV SCH ×4 (00:05→17:28)
[2022-01-10] MEDS: HEPARIN SOD 5,000 UNIT/0.5 ML VIAL SQ SCH ×3 (05:47→20:01)
[2022-01-10] MEDS: LEVOTHYROXINE SODIUM 75 MCG TABLET PO SCH (05:47)
[2022-01-10 06:39] LABS: Hematocrit (blood only) 40.8 % (40.1-51.0); Hemoglobin 13.4 g/dl (14.0-18.0); Mean Corpuscular Hemoglobin 28.6 pg (25.0-34.0); Mean Corpuscular Hgb Conc 32.8 g/dL (32.0-36.0); Mean Corpuscular Volume 87.2 fL (80.0-100.0); Mean Platelet Volume 9.1 fL (9.4-12.4); Platelet Count 256 K/uL (130-400); RDW Coefficient of Variation 13.2 % (11.5-14.5); RDW Standard Deviation 41.8 fL (36.4-46.3); Red Blood Count 4.68 M/uL (4.63-6.08); White Blood Count 11.16 K/ul (4.8-10.8)
[2022-01-10] MEDS: ARIPiprazole 5 MG TAB PO SCH (07:10)
[2022-01-10] MEDS: CARBIDOPA/LEVODOPA 25/100MG TAB PO SCH ×3 (07:10→20:02)
[2022-01-10] MEDS: LORazepam 1 MG TAB PO SCH ×2 (07:11→20:02)
[2022-01-10] MEDS: MULTIVITAMIN TAB PO SCH (07:11)
[2022-01-10] MEDS: lamoTRIgine 100 MG TAB PO SCH ×2 (07:11→20:02)
[2022-01-10] MEDS: FINASTERIDE 5 MG TAB PO SCH (07:11)
[2022-01-10] MEDS: METOPROLOL TARTRATE 25 MG TAB PO SCH ×2 (07:11→20:02)
[2022-01-10] MEDS: DOCUSATE SODIUM SYRUP 100 MG/10 ML UDC PO SCH (07:11)
[2022-01-10] MEDS: ASPIRIN 81 MG ECTAB PO SCH (07:11)
[2022-01-10] MEDS: BENZTROPINE MESYLATE 1 MG TAB PO SCH ×3 (07:11→20:02)
[2022-01-10] MEDS: PANTOprazole 40 MG TAB PO SCH ×2 (07:11→20:02)
[2022-01-10 07:12] LABS: BUN Creatinine Ratio 20.7 (10-20); Calcium 8.8 mg/dl (8.5-10.1); Creatinine Clr Calc Pharmacy 44.9 ml/min; Est GFR (Non-African American) 90.6 ml/min; Potassium 3.7 mmol/L (3.5-5.1)
[2022-01-10] MEDS: SENNA 8.6 MG TAB PO SCH ×2 (07:12→20:02)
[2022-01-10] MEDS: POLYETHYLENE (MIRALAX) 17 GM PACK PO SCH ×2 (07:12→20:02)
[2022-01-10] MEDS: dexAMETHasone 6 MG in SYRINGE 0 ML IV SCH (09:00)
[2022-01-10] MEDS: D5W AND 1/2NSS 1,000 ML IV SCH (12:03)
--- NOTE | 2022-01-10 14:10 | Hospitalist Progress Note ---
Date of Service January 10, 2022 Assessment & Plan (1) Aspiration pneumonia: (2) Hypoxia: (3) COVID-19: Plan 66 year old male with intellectual impairment from detention who was sent to the ED for oxygen saturation in 70s and resolved with EMS/ER intervention and has remained stable. Being treated for aspiration PNA. CXR- There is left basilar consolidation and a small left pleural effusion. The appearance is typical for pneumonia/aspiration pneumonitis. Clinical correlation will be required and radiographic follow-up to resolution is recommended. Aspiration PNA - CXR noted. continue unasyn day 08/17. - VFSS today shows faustina aspiration. Not safe for po Plan: Discussed with patient's primary contact listed in facesheet ( Afsaneh Kim) regarding patient's aspiration risks and further care on 01/09 and again on 01/10. Patient has been noted to be aspirating while he was at the facility. He was being fed one-to-one by the staff there and was noted to be coughing multiple times. He had PEG tube placed in the past but pulled it out. Discussed goals of care; she agreed that patient would benefit with comfort care measures rather than then putting him through more procedures. His sister also has intellectual disability and is at a facility. Medical decisions are made by the caretakers. It is unknown if patient has a appointed legal guardian. Consulted palliative to assist with goals of care. For now, the meds would be given crushed in applesauce as it was being done previously at the facility. Hypoxia- resolved. saturating well in room air. No respiratory distress Covid 19- currently does not require Covid 19 specific treatment. Monitor. Seizure disorder- continue lamictal. seizure precautions. Chronic Hep B- on entecavir. stable as per OP GI note. Parkinson's disease- on sinemet BPH- on proscar Undernutrition- BMI 14.2. Dietitian eval DVT ppx- sc lovenox Dispo- continue iv unasyn. NPO fo now. meds crushed in applesauce. Admission and Anticipated Discharge Date Admission Date: January 07, 2022 Subjective Patient seen and examined at bedside. Patient is comfortably lying on the bed; not in any acute distress. He is afebrile and continues to be on room air. Review of Systems Review of Systems: Unobtainable due to cognitive status Physical Exam Physical Exam: General: lying on the bed comfortably; not in any distress. Chest: Fair breath sounds bilaterally, no wheezes or crackles CVS: Regular rate and rhythm, normal heart sounds, no murmur Abdomen: Soft, non tender, not distended, normal bowel sounds Neuro: Awake, alert, non verbal, does not follow commands Extremities: No edema Results & Data Results & Data ([facility]) Vital Signs (Past 12 Hours) Vital Signs Temp Pulse Pulse Resp BP BP Pulse Ox 01/10/22 09:00 74 01/10/22 08:00 36.0 C L 88 18 116/66 94 01/10/22 03:38 35.8 C L 67 18 149/73 H 94 O2 Del Method 01/10/22 09:00 01/10/22 08:00 Room Air 01/10/22 03:38 Room Air Laboratory Results Laboratory Results WBC 11.16 K/ul (4.8-10.8) H 01/10/22 06:18 RBC 4.68 M/uL (4.63-6.08) 01/10/22 06:18 Hgb 13.4 g/dl (14.0-18.0) L 01/10/22 06:18 Hct 40.8 % (40.1-51.0) 01/10/22 06:18 MCV 87.2 fL (80.0-100.0) 01/10/22 06:18 MCH 28.6 pg (25.0-34.0) 01/10/22 06:18 MCHC 32.8 g/dL (32.0-36.0) 01/10/22 06:18 RDW Std Deviation 41.8 fL (36.4-46.3) 01/10/22 06:18 RDW Coeff of Marbin 13.2 % (11.5-14.5) 01/10/22 06:18 Plt Count 256 K/uL (130-400) 01/10/22 06:18 MPV 9.1 fL (9.4-12.4) L 01/10/22 06:18 Immature Gran % (Auto) 0.2 % 01/07/22 05:24 Neut % (Auto) 92.9 % 01/07/22 05:24 Lymph % (Auto) 4.9 % 01/07/22 05:24 Carson % (Auto) 1.5 % 01/07/22 05:24 Eos % (Auto) 0.1 % 01/07/22 05:24 Baso % (Auto) 0.4 % 01/07/22 05:24 Neut # (Auto) 7.83 K/uL (1.4-6.5) H 01/07/22 05:24 Lymph # (Auto) 0.41 K/uL (1.2-3.4) L 01/07/22 05:24 Carson # (Auto) 0.13 K/uL (0.24-0.82) L 01/07/22 05:24 Eos # (Auto) 0.01 K/uL (0-0.50) 01/07/22 05:24 Baso # (Auto) 0.03 K/uL (0-0.2) 01/07/22 05:24 Immature Gran # (Auto) 0.02 K/uL (0.00-0.02) 01/07/22 05:24 Absolute Nucleated RBC Cancelled 01/09/22 05:40 Nucleated RBC % (auto) Cancelled 01/09/22 05:40 Platelet Estimate Cancelled 01/09/22 05:40 Sodium 140 mmol/L (136-145) 01/10/22 06:18 Potassium 3.7 mmol/L (3.5-5.1) D 01/10/22 06:18 Chloride 104 mmol/L (98-107) 01/10/22 06:18 Carbon Dioxide 25 mmol/L (21-32) 01/10/22 06:18 Anion Gap 11 (3-11) 01/10/22 06:18 BUN 18 mg/dl (6-23) 01/10/22 06:18 Creatinine 0.87 mg/dl (0.6-1.4) 01/10/22 06:18 Est Cr Clr Drug Dosing 44.9 ml/min 01/10/22 06:18 Est GFR ( Amer) 105.0 ml/min 01/10/22 06:18 Est GFR (Non-Af Amer) 90.6 ml/min 01/10/22 06:18 BUN/Creatinine Ratio 20.7 (10-20) H 01/10/22 06:18 Glucose 70 mg/dl (70-99(Fasting)) 01/10/22 06:18 POC Glucose 94 mg/dl (70-99) 01/07/22 02:27 Lactate 0.4 mmol/L (0.4-2.0) 01/07/22 00:28 Calcium 8.8 mg/dl (8.5-10.1) 01/10/22 06:18 Phosphorus 2.6 mg/dl (2.5-4.9) D 01/08/22 07:12 Magnesium 2.2 mg/dl (1.7-2.4) 01/08/22 07:12 Total Bilirubin 0.4 mg/dl (0.2-1.0) 01/06/22 20:39 AST 17 U/L (13-39) 01/06/22 20:39 ALT 6 U/L (7-52) L 01/06/22 20:39 Alkaline Phosphatase 90 U/L (34-104) 01/06/22 20:39 Troponin I High Sens 5.7 pg/ml (0-20) 01/06/22 20:39 B-Natriuretic Peptide 111 pg/ml (0-100) H 01/06/22 20:52 Total Protein 6.9 gm/dl (6.0-8.3) 01/06/22 20:39 Albumin 3.9 gm/dl (3.4-5.0) 01/06/22 20:39 Globulin 3.0 gm/dl (2.5-4.0) 01/06/22 20:39 Albumin/Globulin Ratio 1.3 (0.9-2) 01/06/22 20:39 Lipase 42 U/L (11-82) 01/06/22 20:39 SARS-CoV-2 (PCR) POSITIVE (Negative) A* 01/06/22 20:56 Impressions Chest X-Ray 01/06/22 20:39 SINGLE VIEW CHEST CLINICAL HISTORY: Cough. FINDINGS: An AP, portable, upright chest radiograph is compared to study dated 08/06/2020. The examination is degraded by portable technique and patient rotation. The cardiomediastinal silhouette is unremarkable noting atherosclerotic calcification of the thoracic aorta. There is left basilar consolidation and a small left pleural effusion. Atelectasis is noted at the right lung base. No pneumothorax is seen. The skeletal structures are osteopenic. The bony thorax is grossly intact. IMPRESSION: There is left basilar consolidation and a small left pleural effusion. The appearance is typical for pneumonia/aspiration pneumonitis. Clinical correlation will be required and radiographic follow-up to resolution is recommended. ACT 112: Negative or not required by law. Electronically signed by: Marty Ram M.D. 01/06/2022 10:57 PM Videofluoroscopic Swallow 01/08/22 11:11 FL video swallow HISTORY: Cough with left lower lobe pneumonia. assess for aspiration TECHNIQUE: Video fluoroscopic evaluation of swallowing was performed in the AP and lateral projections by the speech pathology staff. The patient is fed nectar-thick and thin liquid barium, and barium pudding. FLUOROSCOPY TIME: 2.5 minutes. A cine loop submitted. COMPARISON STUDY: Video swallow 07/22/2020. FINDINGS: Difficult study to interpret due to the significant motion artifact. However, there appears to be multiple episodes of aspiration during the examination due to the poor pharyngeal constriction and decreased epiglottic deflection. IMPRESSION: 1. Difficult study to interpret due to the significant motion artifact. However, there appears to be multiple episodes of aspiration during the examination due to the poor pharyngeal constriction and decreased epiglottic deflection. 2. Please see the speech pathologist report for detailed findings and recommendations. ACT 112: Negative or not required by law. Electronically signed by: Jaya Hines M.D. 01/08/2022 1:55 PM (1) Aspiration pneumonia Aspiration pneumonia type: unspecified Laterality: unspecified laterality Lung location: unspecified part of lung Qualified Code(s): J69.0 - Pneumonitis due to inhalation of food and vomit
[2022-01-10] MEDS: traZODone HCL 100 MG TAB PO SCH (20:02)
[2022-01-11] MEDS: AMPICILLIN/SULBACTAM SOD 3,000 MG in 0.9 % SODIUM CHLORIDE 100 ML IV SCH ×3 (00:32→12:14)
[2022-01-11] MEDS: HEPARIN SOD 5,000 UNIT/0.5 ML VIAL SQ SCH ×2 (05:15→13:27)
[2022-01-11] MEDS: D5W AND 1/2NSS 1,000 ML IV SCH (05:15)
[2022-01-11] MEDS: LEVOTHYROXINE SODIUM 75 MCG TABLET PO SCH (05:15)
[2022-01-11 06:16] LABS: Hematocrit (blood only) 38.2 % (40.1-51.0); Hemoglobin 12.7 g/dl (14.0-18.0); Mean Corpuscular Hemoglobin 28.7 pg (25.0-34.0); Mean Corpuscular Hgb Conc 33.2 g/dL (32.0-36.0); Mean Corpuscular Volume 86.4 fL (80.0-100.0); Mean Platelet Volume 9.4 fL (9.4-12.4); Platelet Count 257 K/uL (130-400); RDW Coefficient of Variation 13.2 % (11.5-14.5); RDW Standard Deviation 41.2 fL (36.4-46.3); Red Blood Count 4.42 M/uL (4.63-6.08); White Blood Count 10.76 K/ul (4.8-10.8)
[2022-01-11 06:46] LABS: BUN Creatinine Ratio 22.4 (10-20); Calcium 8.4 mg/dl (8.5-10.1); Creatinine Clr Calc Pharmacy 51.4 ml/min; Est GFR (Non-African American) 95.7 ml/min; Potassium 3.6 mmol/L (3.5-5.1)
[2022-01-11] MEDS: CARBIDOPA/LEVODOPA 25/100MG TAB PO SCH (08:24)
[2022-01-11] MEDS: dexAMETHasone 6 MG in SYRINGE 0 ML IV SCH (09:45)
[2022-01-11] MEDS: LORazepam 1 MG TAB PO SCH (10:20)
[2022-01-11] MEDS: lamoTRIgine 100 MG TAB PO SCH (10:20)
[2022-01-11] MEDS: FINASTERIDE 5 MG TAB PO SCH (10:20)
[2022-01-11] MEDS: ARIPiprazole 5 MG TAB PO SCH (10:20)
[2022-01-11] MEDS: BENZTROPINE MESYLATE 1 MG TAB PO SCH ×2 (10:20→13:38)
[2022-01-11] MEDS: DOCUSATE SODIUM SYRUP 100 MG/10 ML UDC PO SCH (10:20)
[2022-01-11] MEDS: ASPIRIN 81 MG ECTAB PO SCH (10:20)
[2022-01-11] MEDS: METOPROLOL TARTRATE 25 MG TAB PO SCH (10:21)
[2022-01-11] MEDS: POLYETHYLENE (MIRALAX) 17 GM PACK PO SCH (10:21)
[2022-01-11] MEDS: PANTOprazole 40 MG TAB PO SCH (10:21)
[2022-01-11] MEDS: SENNA 8.6 MG TAB PO SCH (10:21)
[2022-01-11] MEDS: MULTIVITAMIN TAB PO SCH (10:21)
--- NOTE | 2022-01-11 13:10 | Palliative Care Consultation ---
Date of Consultation January 11, 2022 Assessment & Plan (1) SOB (shortness of breath): Improved. On room air. (2) Dysphagia: Has not previously tolerated PEG tube. Dysphagia type: unspecified Qualified Code(s): R13.10 - Dysphagia, unspecified (3) Palliative care encounter: I spoke with Afsanehzahraa Kim at [facility] about Sadi' care. She has been involved in his care since he came to [facility]. She is aware that he has been having aspiration and is confident that he would not tolerate having another PEG tube. She has discussed this with the staff at [facility] and all are in agreement that the best course of action for Sadi would be to allow him to "live his best life" until his dying time. We discussed permissive aspiration which would allow him to enjoy eating which gives him much pleasure. They understand the risk of ongoing aspiration. All are also in agreement that repeated hospitalization is disruptive and stressful for Sadi and would not be in his best interest. We discussed having hospice support for him at home to ensure comfort and symptom management if he should develop recurrent aspiration pneumonia. Given his frailty and risk of recurrent aspiration, with or without enteral feedings, he is likely to have recurrent pneumonia and the likelihood that he would have successful resuscitation is low. It would be futile and cause him discomfort. This was discussed with Dr. Tang who agrees. His code status has been changed to DNR and plan is to return home with hospice care and permissive aspiration. Notified case management. (4) Aspiration pneumonia: Aspiration pneumonia type: unspecified Laterality: unspecified laterality Lung location: unspecified part of lung Qualified Code(s): J69.0 - Pneumonitis due to inhalation of food and vomit (5) COVID-19: (6) Acute hypoxemic respiratory failure: History of Present Illness Reason for Consultation: goals of care Requesting Physician: Dr. Tang Attending Physician: Giorgio Tang MD History of Present Illness 66 yo gentleman with intellectual disability who presented with hypoxic respiratory failure and aspiration pneumonia. He also tested positive for covid 19 on admission. He has a previous history of dysphagia with aspiration and has had enteral feedings in the past but self removed his PEG tube. He did have a videofluroscopic swallowing study which was limited but indicated multiple episodes of aspiration. He has been eating a regular diet at his shelter and staff have noted some chronic coughing but no other signs or symptoms of aspiration. He reportedly has a good appetite and enjoys eating. He has however, had ongoing weight loss with a 19lb weight loss since July of 2020. He is nonverbal but is resting comfortably. He tolerates routine care per RN. Allergies Allergy/AdvReac Type Severity Reaction Status Date / Time cefdinir [From Omnicef] Allergy Intermediate ELEVATES Verified 03/01/21 21:26 LFT'S clonazepam Allergy Intermediate LOSS OF Verified 03/01/21 21:26 MOTOR FUNCTION, STROKE LIKE SYMPTOMS sulfamethoxazole Allergy Intermediate UNSTEADY Verified 03/01/21 21:26 GAIT, INCREASED HALLUCINATIONS, PROFUSE SWEATING trimethoprim Allergy Intermediate UNSTEADY Verified 03/01/21 21:26 GAIT, INCREASED HALLUCINATIONS, PROFUSE SWEATING. zonisamide Allergy Intermediate LEANS TO Verified 03/01/21 21:26 ONE SIDE, NEUROLOGICAL SIDE EFFECT. haloperidol Allergy Mild EXTRA Verified 03/01/21 21:26 PYRAMIDAL SYMPTOMS loxapine Allergy Mild EXTRA Verified 03/01/21 21:26 PAROXYSMAL SYMPTOMS thioridazine Allergy Mild ABNORMAL Verified 03/01/21 21:26 KIDNEY FUNCTION diazepam AdvReac Mild INEFFECTIVE Verified 03/01/21 21:26 imipramine AdvReac Mild INEFFECTIVE Verified 03/01/21 21:26 risperidone AdvReac Mild UNSTEADY Verified 03/01/21 21:26 ondansetron AdvReac Unknown LEANS TO Verified 03/01/21 21:26 ONE SIDE Home Medications Medication Instructions Recorded Confirmed Type aripiprazole 5 mg tablet 5 mg PO DAILY 02/09/18 01/06/22 History benztropine 1 mg tablet 1 mg PO TID 02/09/18 01/06/22 History entecavir 0.5 mg tablet (Baraclude) 0.5 mg PO DAILYBB 02/09/18 01/06/22 History lamotrigine 200 mg tablet 200 mg PO BID 02/09/18 01/06/22 History levothyroxine 75 mcg tablet 75 mcg PO DAILY 02/09/18 01/06/22 History lorazepam 1 mg tablet 1 mg PO AMPM 02/09/18 01/06/22 History metoprolol tartrate 25 mg tablet 12.5 mg PO BID 02/09/18 01/06/22 History finasteride 5 mg tablet 5 mg PO DAILY 02/24/19 01/06/22 History carbidopa 25 mg-levodopa 100 mg 1 tab PO TID 08/03/20 01/06/22 History tablet omeprazole 20 mg tablet,delayed 20 mg PO BID 03/01/21 01/06/22 History release sennosides 8.6 mg tablet 8.6 mg PO BID 03/01/21 01/06/22 History trazodone 50 mg tablet 100 mg PO HS 03/01/21 01/06/22 History docusate sodium 50 mg/5 mL oral 10 ml PO DAILY 07/30/21 01/06/22 History liquid (Silace) aspirin 81 mg chewable tablet 81 mg PO DAILY 01/06/22 01/06/22 History bisacodyl 10 mg rectal suppository 10 mg FL UD PRN no BM for 3 days 01/06/22 01/06/22 History dextromethorphan-guaifenesin 10 10 ml PO Q4H PRN Cough 01/06/22 01/06/22 History mg-100 mg/5 mL oral syrup magnesium hydroxide 400 mg/5 mL 30 ml PO UD PRN no BM in 2 days 01/06/22 01/06/22 History oral suspension (Milk of Magnesia) multivitamin with folic acid 400 1 tab PO DAILY 01/06/22 01/06/22 History mcg tablet (Daily-Conrad (with folic acid)) polyethylene glycol 3350 17 17 g PO BID 01/06/22 01/06/22 History gram/dose oral powder (Miralax) sodium phosphates 19 gram-7 118 ml FL UD PRN no BM in 4 days 01/06/22 01/06/22 History gram/118 mL enema (Fleet Enema) Patient History Medical History Dysphagia Intellectual disability Nonverbal Sepsis Surgical History No pertinent past surgical history Family History Other No pertinent family history Social History Smoking Status: Unknown if ever smoked Hx Alcohol Use: No Hx Substance Use: No Preferred Language: Greenlandic Communication Ability: Unable Ton Container Filler Required: No Beliefs That Will Affect Care: None Current Living Situation: Boarding Home Current Living Situation Comment: Skills Feels Safe at Home: Yes Assistive Devices: Wheelchair Review of Systems Review of Systems: Unobtainable due to cognitive status ESAS Pain by observation 0/3 Dyspnea by observation 0/3 PPS 30% Physical Exam Constitutional: + thin and + frail appearing Respiratory: normal respiratory effort; no labored breathing Cardiovascular: Rate/Rhythm: regular rate and regular rhythm Musculoskeletal: Extremities: + muscle atrophy Neurologic: Speech / Cognition: + abnormal cognition Results & Data ([facility]) Vital Signs (Past 12 Hours) Vital Signs Temp Pulse Pulse Resp BP BP Pulse Ox 01/11/22 11:29 97.9 F 82 22 122/65 90 01/11/22 07:30 01/11/22 07:59 97.5 F L 59 L 18 136/75 94 01/11/22 07:33 40 L 01/11/22 04:22 97.5 F L 64 20 122/65 94 O2 Del Method 01/11/22 11:29 Room Air 01/11/22 07:30 Room Air 01/11/22 07:59 Room Air 01/11/22 07:33 01/11/22 04:22 PG Care Time/CCT Total # of Minutes Spent Total Time Spent: 90 Total Time Spent with Patient: Total time spent is greater than 50% in coordination of care (as documented) at patient's floor/unit and/or counseling patient: goals of care, code status, hospice, symptom management, coordination of care Coding Level of Care Code 98327 Initial Inpt Care Lvl 3 Diagnoses SOB (shortness of breath) R06.02 Dysphagia R13.10 Dysphagia type: unspecified Palliative care encounter Z51.5 Aspiration pneumonia J69.0 Aspiration pneumonia type: unspecified Laterality: unspecified laterality Lung location: unspecified part of lung COVID-19 U07.1 Acute hypoxemic respiratory failure J96.01
[2022-01-11] MEDS ORDERED: LORazepam 0.25 MG in SYRINGE 0.125 ML IV STA (13:17)
[2022-01-11] MEDS ORDERED: LORazepam 1 MG in SYRINGE 0.5 ML IV PRN (13:22)
--- NOTE | 2022-01-11 13:53 | Hospitalist Progress Note ---
Date of Service January 11, 2022 Assessment & Plan (1) Aspiration pneumonia: (2) Hypoxia: (3) COVID-19: Plan 66 year old male with intellectual impairment from long-term who was sent to the ED for oxygen saturation in 70s and resolved with EMS/ER intervention and has remained stable. Being treated for aspiration PNA. CXR- There is left basilar consolidation and a small left pleural effusion. The appearance is typical for pneumonia/aspiration pneumonitis. Clinical correlation will be required and radiographic follow-up to resolution is recommended. Aspiration PNA Covid 19 infection, asymptomatic Seizure disorder Parkinson's disease BPH Severe Malnutrition Plan: Discussion done with Afsaneh Kim at [facility] and with palliative care team. Given his frailty and risk for recurrent aspiration; he will likely have recurrent episode of pneumonia and his chances for successful resuscitation are low. It is futile and would only cause him discomfort. CODE STATUS to be changed to DNR. Patient to be discharged with home with hospice care aspiration. DVT ppx- sc lovenox Dispo- home with hospice care Admission and Anticipated Discharge Date Admission Date: January 07, 2022 Subjective Patient seen and examined at bedside. Is comfortably lying in the bed. Nonverbal and minimally interactive. Review of Systems Review of Systems: All systems reviewed & are unremarkable except as noted in Subjective Physical Exam Physical Exam: General: lying on the bed comfortably; not in any distress. Chest: Fair breath sounds bilaterally, no wheezes or crackles CVS: Regular rate and rhythm, normal heart sounds, no murmur Abdomen: Soft, non tender, not distended, normal bowel sounds Neuro: Awake, alert, non verbal, does not follow commands Extremities: No edema Results & Data Results & Data ([facility]) Vital Signs (Past 12 Hours) Vital Signs Temp Pulse Pulse Resp BP BP Pulse Ox 01/11/22 13:24 36.5 C 86 22 126/73 94 01/11/22 11:29 36.6 C 82 22 122/65 90 01/11/22 07:30 01/11/22 07:59 36.4 C L 59 L 18 136/75 94 01/11/22 07:33 40 L 01/11/22 04:22 36.4 C L 64 20 122/65 94 O2 Del Method 01/11/22 13:24 Room Air 01/11/22 11:29 Room Air 01/11/22 07:30 Room Air 01/11/22 07:59 Room Air 01/11/22 07:33 01/11/22 04:22 Laboratory Results Laboratory Results WBC 10.76 K/ul (4.8-10.8) 01/11/22 05:40 RBC 4.42 M/uL (4.63-6.08) L 01/11/22 05:40 Hgb 12.7 g/dl (14.0-18.0) L 01/11/22 05:40 Hct 38.2 % (40.1-51.0) L 01/11/22 05:40 MCV 86.4 fL (80.0-100.0) 01/11/22 05:40 MCH 28.7 pg (25.0-34.0) 01/11/22 05:40 MCHC 33.2 g/dL (32.0-36.0) 01/11/22 05:40 RDW Std Deviation 41.2 fL (36.4-46.3) 01/11/22 05:40 RDW Coeff of Marbin 13.2 % (11.5-14.5) 01/11/22 05:40 Plt Count 257 K/uL (130-400) 01/11/22 05:40 MPV 9.4 fL (9.4-12.4) 01/11/22 05:40 Immature Gran % (Auto) 0.2 % 01/07/22 05:24 Neut % (Auto) 92.9 % 01/07/22 05:24 Lymph % (Auto) 4.9 % 01/07/22 05:24 [place] % (Auto) 1.5 % 01/07/22 05:24 Eos % (Auto) 0.1 % 01/07/22 05:24 Baso % (Auto) 0.4 % 01/07/22 05:24 Neut # (Auto) 7.83 K/uL (1.4-6.5) H 01/07/22 05:24 Lymph # (Auto) 0.41 K/uL (1.2-3.4) L 01/07/22 05:24 [place] # (Auto) 0.13 K/uL (0.24-0.82) L 01/07/22 05:24 Eos # (Auto) 0.01 K/uL (0-0.50) 01/07/22 05:24 Baso # (Auto) 0.03 K/uL (0-0.2) 01/07/22 05:24 Immature Gran # (Auto) 0.02 K/uL (0.00-0.02) 01/07/22 05:24 Absolute Nucleated RBC Cancelled 01/09/22 05:40 Nucleated RBC % (auto) Cancelled 01/09/22 05:40 Platelet Estimate Cancelled 01/09/22 05:40 Sodium 138 mmol/L (136-145) 01/11/22 05:40 Potassium 3.6 mmol/L (3.5-5.1) 01/11/22 05:40 Chloride 104 mmol/L (98-107) 01/11/22 05:40 Carbon Dioxide 24 mmol/L (21-32) 01/11/22 05:40 Anion Gap 10 (3-11) 01/11/22 05:40 BUN 17 mg/dl (6-23) 01/11/22 05:40 Creatinine 0.76 mg/dl (0.6-1.4) 01/11/22 05:40 Est Cr Clr Drug Dosing 51.4 ml/min 01/11/22 05:40 Est GFR ( Amer) 111.0 ml/min 01/11/22 05:40 Est GFR (Non-Af Amer) 95.7 ml/min 01/11/22 05:40 BUN/Creatinine Ratio 22.4 (10-20) H 01/11/22 05:40 Glucose 93 mg/dl (70-99(Fasting)) 01/11/22 05:40 POC Glucose 94 mg/dl (70-99) 01/07/22 02:27 Lactate 0.4 mmol/L (0.4-2.0) 01/07/22 00:28 Calcium 8.4 mg/dl (8.5-10.1) L 01/11/22 05:40 Phosphorus 2.6 mg/dl (2.5-4.9) D 01/08/22 07:12 Magnesium 2.2 mg/dl (1.7-2.4) 01/08/22 07:12 Total Bilirubin 0.4 mg/dl (0.2-1.0) 01/06/22 20:39 AST 17 U/L (13-39) 01/06/22 20:39 ALT 6 U/L (7-52) L 01/06/22 20:39 Alkaline Phosphatase 90 U/L (34-104) 01/06/22 20:39 Troponin I High Sens 5.7 pg/ml (0-20) 01/06/22 20:39 B-Natriuretic Peptide 111 pg/ml (0-100) H 01/06/22 20:52 Total Protein 6.9 gm/dl (6.0-8.3) 01/06/22 20:39 Albumin 3.9 gm/dl (3.4-5.0) 01/06/22 20:39 Globulin 3.0 gm/dl (2.5-4.0) 01/06/22 20:39 Albumin/Globulin Ratio 1.3 (0.9-2) 01/06/22 20:39 Lipase 42 U/L (11-82) 01/06/22 20:39 SARS-CoV-2 (PCR) POSITIVE (Negative) A* 01/06/22 20:56 Impressions Chest X-Ray 01/06/22 20:39 SINGLE VIEW CHEST CLINICAL HISTORY: Cough. FINDINGS: An AP, portable, upright chest radiograph is compared to study dated 08/06/2020. The examination is degraded by portable technique and patient rotation. The cardiomediastinal silhouette is unremarkable noting atherosclerotic calcification of the thoracic aorta. There is left basilar consolidation and a small left pleural effusion. Atelectasis is noted at the right lung base. No pneumothorax is seen. The skeletal structures are osteopenic. The bony thorax is grossly intact. IMPRESSION: There is left basilar consolidation and a small left pleural effusion. The appearance is typical for pneumonia/aspiration pneumonitis. Clinical correlation will be required and radiographic follow-up to resolution is recommended. ACT 112: Negative or not required by law. Electronically signed by: Marty Ram M.D. 01/06/2022 10:57 PM Videofluoroscopic Swallow 01/08/22 11:11 FL video swallow HISTORY: Cough with left lower lobe pneumonia. assess for aspiration TECHNIQUE: Video fluoroscopic evaluation of swallowing was performed in the AP and lateral projections by the speech pathology staff. The patient is fed nectar-thick and thin liquid barium, and barium pudding. FLUOROSCOPY TIME: 2.5 minutes. A cine loop submitted. COMPARISON STUDY: Video swallow 07/22/2020. FINDINGS: Difficult study to interpret due to the significant motion artifact. However, there appears to be multiple episodes of aspiration during the examination due to the poor pharyngeal constriction and decreased epiglottic deflection. IMPRESSION: 1. Difficult study to interpret due to the significant motion artifact. However, there appears to be multiple episodes of aspiration during the examination due to the poor pharyngeal constriction and decreased epiglottic deflection. 2. Please see the speech pathologist report for detailed findings and recommendations. ACT 112: Negative or not required by law. Electronically signed by: Jaya Hines M.D. 01/08/2022 1:55 PM (1) Aspiration pneumonia Aspiration pneumonia type: unspecified Laterality: unspecified laterality Lung location: unspecified part of lung Qualified Code(s): J69.0 - Pneumonitis due to inhalation of food and vomit
--- NOTE | 2022-01-11 15:53 | Discharge Summary ---
Date of Service January 11, 2022 Admission HPI Per Admitting Provider History obtained from patient caregiver and records. Unable to obtain history from patient secondary to intellectual impairment. Medical history significant for intellectual impairment, aspiration risk/dysphagia, Parkinson's disease, seizure disorder, BPH, GERD, chronic hepatitis B on Entecavir. Last confinement 2016 for sepsis secondary to UTI. Few days history of cough symptoms are prominent on eating at snf. No fever, no chills. No shortness of breath. Patient tends to eat fast as per caregiver. Home COVID-19 test was negative as per guardian. Patient completed COVID-19 vaccination. Patient seen at PCPs office 2 days ago. Patient encouraged to eat slowly. Consideration for referral to speech pathologist as per note. Worsening coughing fit at home. Subsequent emesis and respiratory distress. O2 sats noted to be 70s on room air upon EMS arrival. Patient put on nonrebreather mask. Patient received Decadron and neb treatment at the ER. Patient looking much better as per caregiver. Medical History as above Surgical History : PEG tube placement Family History : Could not be obtained due to intellectual impairment Personal/Social history : Non-smoker, no EtOH intake, snf resident Admission Exam Per Admitting Provider GENERAL: uncomfortable, underweight/frail looking, no respiratory distress SKIN: Normal color, warm HEENT: Allgood palpebral conjunctivae, no ptosis, dry buccal mucosa NECK : Supple, no tenderness CHEST : Decreased breath sounds, occasional expiratory wheezes, no tenderness HEART : RRR, no obvious murmurs ABDOMEN: no distention, nontender EXTREMITIES : No LE swelling/tenderness, no other conspicuous deformities noted NEUROLOGIC : incoherent, no facial asymmetry, episodic tongue thrusting, somewhat restless Principal Diagnosis Aspiration PNA Covid 19 infection, asymptomatic Seizure disorder Parkinson's disease BPH Severe Malnutrition Discharge Exam General: lying on the bed comfortably; not in any distress. Chest: Fair breath sounds bilaterally, no wheezes or crackles CVS: Regular rate and rhythm, normal heart sounds, no murmur Abdomen: Soft, non tender, not distended, normal bowel sounds Neuro: Awake, alert, non verbal, does not follow commands Extremities: No edema Discharge Data Allergies Allergy/AdvReac Type Severity Reaction Status Date / Time cefdinir [From Omnicef] Allergy Intermediate ELEVATES Verified 03/01/21 21:26 LFT'S clonazepam Allergy Intermediate LOSS OF Verified 03/01/21 21:26 MOTOR FUNCTION, STROKE LIKE SYMPTOMS sulfamethoxazole Allergy Intermediate UNSTEADY Verified 03/01/21 21:26 GAIT, INCREASED HALLUCINATIONS, PROFUSE SWEATING trimethoprim Allergy Intermediate UNSTEADY Verified 03/01/21 21:26 GAIT, INCREASED HALLUCINATIONS, PROFUSE SWEATING. zonisamide Allergy Intermediate LEANS TO Verified 03/01/21 21:26 ONE SIDE, NEUROLOGICAL SIDE EFFECT. haloperidol Allergy Mild EXTRA Verified 03/01/21 21:26 PYRAMIDAL SYMPTOMS loxapine Allergy Mild EXTRA Verified 03/01/21 21:26 PAROXYSMAL SYMPTOMS thioridazine Allergy Mild ABNORMAL Verified 03/01/21 21:26 KIDNEY FUNCTION diazepam AdvReac Mild INEFFECTIVE Verified 03/01/21 21:26 imipramine AdvReac Mild INEFFECTIVE Verified 03/01/21 21:26 risperidone AdvReac Mild UNSTEADY Verified 03/01/21 21:26 ondansetron AdvReac Unknown LEANS TO Verified 03/01/21 21:26 ONE SIDE Consultations 01/06/22 23:56 ED Decision to Admit Stat 01/09/22 13:13 Consult Palliative Care Routine Ordered Studies 01/08/22 11:11 FL video swallow Routine Hospital Course (1) Aspiration pneumonia: (2) Hypoxia: (3) COVID-19: Plan Patient is a 66-year-old male with past medical history of intellectual impairment, Parkinson's disease, seizure disorder, BPH presented with complaint of cough during eating and hypoxia. Patient was found to have aspiration pneumonia for which he was treated with Unasyn. Patient underwent VFSS which showed faustina aspiration. He was not deemed safe for oral intake. Discussion was done with patient's primary contact Afsaneh Kim)regarding patient's aspiration risks and further care on 01/09 and again on 01/10. Patient has been noted to be aspirating while he was at the facility. He was being fed one-to-one by the staff there and was noted to be coughing multiple times. He had PEG tube placed in the past but pulled it out. Discussed goals of care; she agreed that patient would benefit with comfort care measures rather than then putting him through more procedures. His sister also has intellectual disability and is at a facility. Medical decisions are made by the caretakers. Palliative care was consulted. Patient was discharged back to the facility with home hospice. Patient was in room air on discharge. Total Time Total Time Spent Total Time Spent (In Minutes): 35 Total Time Includes: Examination of the Patient, Discharge Planning, Medication Reconciliation, Communication With Other Providers and Other Discharge Plan Discharge Items Patient Disposition: Hospice - Medical Facility Reason For Visit: RESP FAILURE, COVID Discharge Diagnosis: (1) Aspiration pneumonia: (2) Hypoxia: (3) COVID-19: Activity: Resume your previous activity Non-emergency contact: Primary Care Provider Call non-emergency contact if: you have any medication questions Follow-up/Referrals: Diana Nicole MD [Primary Care Provider] - Diet: Other - See Diet Comment Diet Comment: Pleasure feeding Addtl Attending Provider Instructions: Please continue to take the medication as prescribed. Please continue pleasure feeding with permissive aspiration. Pending Studies at Discharge: No Stand-Alone Forms: My [facility] Skilled Items Patient informed of condition?: Yes DNR: Yes Discharge Level of Care: Other Communicable Disease: No Discharge Prognosis: Stable Lines: None Urinary Catheter: No Medications and DC Order Prescriptions: Continued lamotrigine 200 mg tablet 200 mg PO BID benztropine 1 mg tablet 1 mg PO TID Rx Instructions: 8am,4pm,8pm lorazepam 1 mg tablet 1 mg PO AMPM Rx Instructions: give at 8am and 4pm aripiprazole 5 mg tablet 5 mg PO DAILY metoprolol tartrate 25 mg tablet 12.5 mg PO BID levothyroxine 75 mcg tablet 75 mcg PO DAILY entecavir [Baraclude] 0.5 mg Tablet 0.5 mg PO DAILYBB Rx Instructions: take on empty stomach finasteride 5 mg Tablet 5 mg PO DAILY sennosides 8.6 mg Tablet 8.6 mg PO BID trazodone 50 mg Tablet 100 mg PO HS omeprazole 20 mg Tablet,Delayed Release (Dr/Ec) 20 mg PO BID Rx Instructions: give 30 min before a meal. may open capsule and give with food docusate sodium [Silace] 50 mg/5 mL liquid 10 ml PO DAILY Rx Instructions: in drink carbidopa-levodopa 25-100 mg tablet 1 tab PO TID Rx Instructions: 8am,4pm,8pm aspirin 81 mg Tablet,Chewable 81 mg PO DAILY polyethylene glycol 3350 [Miralax] 17 gram/dose Powder 17 g PO BID Rx Instructions: 8am & 8pm bisacodyl 10 mg suppository 10 mg HI UD PRN (Reason: no BM for 3 days) Rx Instructions: give on 4th days in the AM Fleet Enema 19-7 gram/118 mL enema 118 ml HI UD PRN (Reason: no BM in 4 days) Rx Instructions: give on the 5th day multivitamin with folic acid [Daily-Conrad (with folic acid)] 400 mcg tablet 1 tab PO DAILY dextromethorphan-guaifenesin 10-100 mg/5 mL Syrup 10 ml PO Q4H PRN (Reason: Cough) magnesium hydroxide [Milk of Magnesia] 400 mg/5 mL Suspension 30 ml PO UD PRN (Reason: no BM in 2 days) Rx Instructions: give on 3rd day in the morning Discharge Orders: Discharge Order (Routine); Ordered 01/11/22 Ordered By: Giorgio Tang Admission Data Admit Date/Time: 01/07/22 01:24 Attending Provider: Giorgio Tang Admit Provider: Jurgen Wong Primary Care Provider: Diana Nicole Other Providers: Jurgen Wong ; Ashley Prater Other Interventions: Discharge Summary Assessment (RN) Last Done: 01/11/22 14:02
== END 2022-01-11 15:00 | disposition hospice, inpatient (51) | DRG 177 ==
LOC: ED 20:28 → 2S 01-07 01:24 → SUATTDRO 01-07 01:24 → 2S 01-07 02:18